=== PATIENT | male | born 1960 | race Caucasian/White ===

== ENCOUNTER → 2016-08-03 | Outpatient (CLI) | payer OTHER ==
[~2016-08-03] MED LIST: ACET-1256 PO; ASPEC81 PO; ASPI81TA28 PO; ATOR-24 PO; BRL90 PO; CALC1TAB9 PO; CALC625T PO; CHOL1TAB42; CHOL200010 PO; CLON0.5T3 PO; CZR25 PO; DTRSR/10 PO; DTRSR10 PO; HYDR2.5C60 RE; KRIL1CAP18 PO; LEVO88TA PO; LPR25 PO; LPT40 PO; LSN5 PO; MULT-506 PO; MULT-513 PO; NTRSLP4 SL; POTA540T PO; POTASSIUM CITRATE ER PO; SIME1CHW17 PO; TICA1TAB PO; TIZA4CAP PO; TPRSR25 PO; ZINC66TA PO; ZNF/4 PO
--- NOTE | 2016-08-03 12:16 | DIAGNOSTIC IMAGING REPORT ---
KUB CLINICAL HISTORY: NEPHROLITHIASIS COMPARISON STUDY: 10/16/2013 FINDINGS: The soft tissues, psoas shadows, renal outlines and intestinal gas pattern appear normal. There is no evidence for bowel obstruction. No abnormal abdominal calcifications are seen. IMPRESSION: Normal study. Electronically signed by: Anish Randolph M.D. 08/03/2016 12:14 PM Dictated Date/Time: 08/03/2016 12:14 PM
[2016-08-03 14:58] LABS: BLOOD UREA NITROGEN 16 mg/dl (7-18); BUN/CREATININE RATIO 21.5 (10-20); CREATININE 0.73 mg/dl (0.60-1.40)
[2016-08-03 15:02] LABS: PROSTATE SPECIFIC ANTIGEN 0.499 ng/ml (0.000-4.000)
--- NOTE | 2016-08-08 09:07 | CODING QUERY MEDICAL NECESSITY ---
SUPPORTING DIAGNOSIS NEEDED Dr. Starkey, A supporting diagnosis is required for the test/procedure performed on this patient in order for us to be reimbursed by the patient's insurance. Please provide a supporting diagnosis for the following test/procedure listed below next to the test name along with your signature. *If there is no additional diagnosis for this patient that would support the following test/procedure please document that below next to the test/procedure. Test(s)/Procedure(s) that require a supporting diagnosis: * [id number] PSA DIAGNOSIS: DATE OF SERVICE: 08/03/16 Provider Signature: Date: Thank you Dandy Kan [facility] Information Management Once completed, please kindly fax back to [phone] For questions please call [phone]
== END | disposition home or self-care (01) ==
LOC: C.LABBC 11:26
PROVIDERS: ATTEND Urology
DX: N20.0 Calculus of kidney (principal); N31.9 Neuromuscular dysfunction of bladder, unspecified; Z80.42 Family history of malignant neoplasm of prostate

== ENCOUNTER 2016-12-14 14:33 | Emergency (ER) | payer OTHER ==
[~2016-12-14] VITALS: Ht 167.6 cm; Wt 78.1 kg
[2016-12-14 14:33] VITALS: TEMP 36.4; Ht 167.6 cm; Wt 78.1 kg
[~2016-12-14 14:33] MED LIST changes: -ACET-1256 PO; -ASPI81TA28 PO; -ATOR-24 PO; -CALC1TAB9 PO; -CHOL1TAB42; -CZR25 PO; -DTRSR/10 PO; -HYDR2.5C60 RE; -LEVO88TA PO; -LPR25 PO; -MULT-513 PO; -POTASSIUM CITRATE ER PO; -TICA1TAB PO; -ZNF/4 PO
[2016-12-14 14:35] VITALS: O2SAT 99
[2016-12-14] MEDS ORDERED: SODIUM CHLORIDE 0.9% 500ML 500 ML IV STA ×2 (14:47→16:26)
--- NOTE | 2016-12-14 14:51 | EMERGENCY ROOM VISIT NOTE ---
History Report prepared by Day: Beckie Ellis Under the Supervision of: Dr. Marcus Ramsey M.D. First contact with patient: 14:35 Chief Complaint: CHEST PAIN Stated Complaint: CHEST PAIN History of Present Illness The patient is a 56 year old white male with a past medical history of PCO to LAD and MS Barbie who presents to the ED with a cc of a syncopal episode beginning prior to arrival. Positive LOC. Negative CP, SOB, cough, fevers, chills, pain or swelling in the legs, recent travel, infections, or antibiotic use. He was brought to the ED via EMS. EMS reports the patient was at [employer] eating lunch when he started to feel dizzy and experienced a syncopal episode. He was strapped in to his wheelchair and did not fall or hit his head. He did experience urinary incontinence after the episode. The patient was stented by Dr. Ahuja and his last EF was between 35% and 40% with mitral regurgitation. The patient denies any previous history of seizures. 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 A total of ten systems were reviewed and were otherwise negative. Past Medical & Surgical Medical Problems: (1) Calculus of kidney (2) Multiple sclerosis (3) Renal colic (4) STEMI (ST elevation myocardial infarction) Family History Heart disease Social History Smoking Status: Former Smoker Alcohol Use: occasionally Drug Use: none Marital Status: Housing Status: lives with significant other Occupation Status: disabled Current/Historical Medications Scheduled Aspirin (Aspirin Ec), 81 MG PO DAILY Atorvastatin (Lipitor), 40 MG PO DAILY Calcium Citrate-Vitamin D (Citracal + D3 Maximum), 1 TAB PO BID Calcium Polycarbophil (Fibercon), 2 CAP PO DAILY Cholecalciferol (Vitamin D), 5,000 UNITS DAILYBB Hydrocortisone (Rectal) (Procto-Med Hc), 1 APPLN RE UD Levothyroxine Sodium (Synthroid), 88 MCG PO DAILY Losartan Potassium (Losartan Potassium), 25 MG PO DAILY Metoprolol Tartrate (Lopressor), 37.5 MG PO BID Multivitamins/Minerals (Mvi With Minerals), 1 TAB PO DAILY Oxybutynin Chloride (Oxybutynin Chloride ER), 10 MG PO DAILY Ticagrelor (Brilinta), 90 MG PO BID Tizanidine (Tizanidine HCl), 2 MG PO UD Tizanidine (Zanaflex), 4 MG PO BID [Potassium Citrate Er], 300 MG PO BID Scheduled PRN Acetaminophen (Tylenol), 1,000 MG PO Q6 PRN for Pain Allergies Coded Allergies: Glatiramer (Verified Allergy, Severe, anaphylactic, 03/09/16) per patient Mannitol (Verified Allergy, Severe, anaphylactic, 03/09/16) per patient Physical Exam Vital Signs Date Time Temp Pulse Resp B/P (MAP) Pulse Ox O2 Delivery O2 Flow Rate FiO2 12/14/16 19:10 73 18 100/56 99 12/14/16 18:39 86 18 109/62 96 Room Air 12/14/16 17:33 75 18 91/53 96 Room Air 12/14/16 16:13 72 18 97/58 100 Room Air 12/14/16 15:30 65 18 99/55 100 Room Air 12/14/16 15:10 72 12/14/16 14:35 99 Room Air 12/14/16 14:33 36.4 64 18 129/63 99 Room Air Physical Exam GENERAL: Awake, alert, well-appearing, NAD HENT: Normocephalic, atraumatic. EYES: Normal conjunctiva. Sclera non-icteric. NECK: Supple. No nuchal rigidity. FROM. RESPIRATORY: CTAB, no rhonchi, wheezing, crackles CARDIAC: RRR, no MRG ABDOMEN: Soft, NTND, BS+ MSK: No chest wall TTP, no LE edema NEURO: AAO x 3, GCS 15, patient is verbal, appropriate responses, baseline paralysis of all 4 extremities, gross sensation intact. SKIN: No rash or jaundice noted. Medical Decision & Procedures ER Provider Diagnostic Interpretation: Radiology results as stated below per my review and radiologist interpretation: CHEST ONE VIEW PORTABLE CLINICAL HISTORY: Atypical chest pain COMPARISON STUDY: 03/09/2016 FINDINGS: The cardiac and mediastinal contours are normal. There is no evidence of focal pulmonary consolidation. There is no evidence of failure. No pleural effusions are visualized. IMPRESSION: No active disease in the chest. Electronically signed by: Moiz Serrato M.D. 12/14/2016 3:34 PM Laboratory Results 12/14/16 14:55 Red Blood Count 5.04, Mean Corpuscular Volume 85.7, Mean Corpuscular Hemoglobin 29.0, Mean Corpuscular Hemoglobin Concent 33.8, Mean Platelet Volume 9.8, Neutrophils (%) (Auto) 74.1, Lymphocytes (%) (Auto) 17.1, Monocytes (%) (Auto) 5.5, Eosinophils (%) (Auto) 2.2, Basophils (%) (Auto) 0.3, Neutrophils # (Auto) 9.89, Lymphocytes # (Auto) 2.29, Monocytes # (Auto) 0.73, Eosinophils # (Auto) 0.30, Basophils # (Auto) 0.04 12/14/16 14:55 Test 12/14/16 14:55 12/14/16 17:54 White Blood Count 13.36 K/uL (4.8-10.8) Red Blood Count 5.04 M/uL (4.7-6.1) Hemoglobin 14.6 g/dL (14.0-18.0) Hematocrit 43.2 % (42-52) Mean Corpuscular Volume 85.7 fL (80-100) Mean Corpuscular Hemoglobin 29.0 pg (25-34) Mean Corpuscular Hemoglobin Concent 33.8 g/dl (32-36) Platelet Count 319 K/uL (130-400) Mean Platelet Volume 9.8 fL (7.4-10.4) Neutrophils (%) (Auto) 74.1 % Lymphocytes (%) (Auto) 17.1 % Monocytes (%) (Auto) 5.5 % Eosinophils (%) (Auto) 2.2 % Basophils (%) (Auto) 0.3 % Neutrophils # (Auto) 9.89 K/uL (1.4-6.5) Lymphocytes # (Auto) 2.29 K/uL (1.2-3.4) Monocytes # (Auto) 0.73 K/uL (0.11-0.59) Eosinophils # (Auto) 0.30 K/uL (0-0.5) Basophils # (Auto) 0.04 K/uL (0-0.2) RDW Standard Deviation 42.1 fL (36.4-46.3) RDW Coefficient of Variation 13.5 % (11.5-14.5) Immature Granulocyte % (Auto) 0.8 % Immature Granulocyte # (Auto) 0.11 K/uL (0.00-0.02) Prothrombin Time 10.6 SECONDS (9.0-12.0) Prothromb Time International Ratio 1.0 (0.9-1.1) Activated Partial Thromboplast Time 24.7 SECONDS (21.0-31.0) Partial Thromboplastin Ratio 1.0 Anion Gap 11.0 mmol/L (3-11) Est Creatinine Clear Calc Drug Dose 73.7 ml/min Estimated GFR () 86.5 Estimated GFR (Non- 74.6 BUN/Creatinine Ratio 12.7 (10-20) Calcium Level 9.7 mg/dl (8.5-10.1) Phosphorus Level 4.1 mg/dl (2.5-4.9) Magnesium Level 2.1 mg/dl (1.8-2.4) Total Bilirubin 0.6 mg/dl (0.2-1) Direct Bilirubin 0.2 mg/dl (0-0.2) Aspartate Amino Transf (AST/SGOT) 27 U/L (15-37) Alanine Aminotransferase (ALT/SGPT) 56 U/L (12-78) Alkaline Phosphatase 113 U/L (45-117) Troponin I < 0.015 ng/ml (0-0.045) Total Protein 7.9 gm/dl (6.4-8.2) Albumin 3.9 gm/dl (3.4-5.0) Lipase 141 U/L (73-393) Bedside Troponin I < 0.030 ng/ml (0-0.045) Laboratory results reviewed by me Medications Administered Medications (Trade) Dose Ordered Sig/Benton Route Start Time Stop Time Status Last Admin Dose Admin Sodium Chloride 500 ml @ 500 mls/hr Q1H STAT IV 12/14/16 14:47 12/14/16 15:46 DC 12/14/16 15:10 500 MLS/HR Aspirin (Aspirin Chew) 162 mg ONE STAT PO 12/14/16 15:13 12/14/16 15:14 DC 12/14/16 15:24 162 MG Aspirin (Aspirin Chew) 81 mg ONE STAT PO 12/14/16 15:13 12/14/16 15:14 DC 12/14/16 15:24 81 MG Sodium Chloride 500 ml @ 500 mls/hr Q1H STAT IV 12/14/16 16:26 12/14/16 17:25 DC 12/14/16 16:49 500 MLS/HR ECG Indication: syncope Rate (beats per minute): 61 Rhythm: normal sinus (Likely Normal Sinus, but there is significant artifact) Findings: other (Normal intervals. Unable to visualize other findings due to significant artifact) Change: Repeat EKG on 12/14/16: NSR 62, normal intervals, no STS or TWI ED Course 1438: The patient was evaluated in room A2. A complete history and physical exam was performed. 1447: NSS 500 ml @ 500 mls/hr IV. 1451: The patient took a baby Aspirin prior to arrival, but not a full dose. We will administer the rest of the dose here in the ED. 1513: Aspirin 81 mg PO, Aspirin 162 mg PO. 1558: I reevaluated the patient. He is resting comfortably. 1626: NSS 500 ml @ 500 mls/hr IV. 1840: I reevaluated the patient. I discussed my recommendation he remain in the hospital for further evaluation and management and he declined and states he would like to go home. Medical Decision The patient is a 56 year old white male with a past medical history of PCO to LAD and MS Quad who presents to the ED with a cc of a syncopal episode beginning prior to arrival. Positive LOC. Negative CP, SOB, cough, fevers, chills, pain or swelling in the legs, recent travel, infections, or antibiotic use. Triage Nursing notes reviewed. The patient's presentation and history were concerning for Vasovagal event, infection, hypoglycemia, electrolyte abnormalities, cardiac sources, intracerebral event, toxicologic, neurologic, as well as others were entertained. Patient was seen and evaluated at the bedside. Patient states he is feeling well. Patient did have one episode of syncope with incontinence. No history of seizures. Sclerae any trauma as he was in his motorized chair. His total LOC was may be several seconds. Patient has control of his bowel in his bladder. Patient denies any sensory loss. Patient denies any chest pain or shortness of breath this does not feel similar to his prior [facility]. Patient does take an aspirin and polenta. Patient states he took a baby aspirin this morning. Patient did have a repeat EKG was completed which did show any acute changes. Patient had a negative troponin fairly benign labwork. Patient did have a with blood cell count 13 but no infectious symptoms. Patient had a second troponin was completed and was negative. Patient had no chest pain or shortness of breath. I made a recommendation of the patient's stay given his heart history and recent syncope. Patient did not want to do this. Patient is of sound mind and able to make a cognizant decision even though he was told that stay in the hospital may be better; however, the patient does not want to be admitted. Patient was given strict follow-up, discharge, return precautions and told to follow his manager laboratory. Patient agreed with plan of care patient was safely discharged home. Medication Reconcilliation Current Medication List: was personally reviewed by me Blood Pressure Screening Patient's blood pressure: Low blood pressure The patient has a history of MS with quad. Impression Primary Impression: Syncope Additional Impression: Multiple sclerosis Scribe Attestation The scribe's documentation has been prepared under my direction and personally reviewed by me in its entirety. I confirm that the note above accurately reflects all work, treatment, procedures, and medical decision making performed by me. Departure Information Dispostion Home / Self-Care Referrals Chantell Dunham M.D. (PCP) Patient Instructions My [facility], Syncope Additional Instructions Please return to the emergency department if you have worsening or recurrent symptoms not amenable to at-home treatment. Please call for a follow-up appointment with her primary care physician. Please take your medications as prescribed. If you have other concerns and/or complaints please feel free to also call your primary care physician's office or return the ED for further evaluation, management, and treatment. You have been examined and treated today on an emergency basis only. This is not a substitute for, or an effort to provide, complete comprehensive medical care. It is impossible to recognize and treat all injuries or illnesses in a single emergency department visit. It is therefore important that you follow up closely with [facility]. Call as soon as possible for an appointment. Thank you for your time and consideration. I look forward to speaking with you again soon. Please don't hesitate to call us if you have any questions. Problem Qualifiers Primary Impression: Syncope Syncope type: unspecified Qualified Codes: R55 - Syncope and collapse
[2016-12-14] MEDS ORDERED: ASPIRIN 81 MG CHEW PO STA ×2 (15:13)
[2016-12-14 15:16] LABS: BASO % 0.3 %; BASO ABS # 0.04 K/uL (0-0.2); COMPLETE YES; EOS % 2.2 %; HEMATOCRIT 43.2 % (42-52); IG% 0.8 %; LYMPH % 17.1 %; LYMPH ABS # 2.29 K/uL (1.2-3.4); MEAN CELL VOLUME 85.7 fL (80-100); MEAN CORPUSCULAR HGB CONC 33.8 g/dl (32-36); MEAN PLATELET VOLUME 9.8 fL (7.4-10.4); MONO % 5.5 %; NEUT % 74.1 %; PLATELET COUNT 319 K/uL (130-400); RED BLOOD COUNT 5.04 M/uL (4.7-6.1); WHITE BLOOD COUNT 13.36 K/uL (4.8-10.8)
[2016-12-14 15:23] LABS: PROTHROMBIN TIME (PATIENT) 10.6 SECONDS (9.0-12.0)
--- NOTE | 2016-12-14 15:36 | DIAGNOSTIC IMAGING REPORT ---
CHEST ONE VIEW PORTABLE CLINICAL HISTORY: Atypical chest pain COMPARISON STUDY: 03/09/2016 FINDINGS: The cardiac and mediastinal contours are normal. There is no evidence of focal pulmonary consolidation. There is no evidence of failure. No pleural effusions are visualized.[ IMPRESSION: No active disease in the chest. Electronically signed by: Moiz Serrato M.D. 12/14/2016 3:34 PM Dictated Date/Time: 12/14/2016 3:34 PM
[2016-12-14] MEDS ORDERED: DTRSR/10 PO (15:44)
[2016-12-14] MEDS ORDERED: MULT-513 PO (15:44)
[2016-12-14] MEDS ORDERED: CALC1TAB9 PO (15:44)
[2016-12-14] MEDS ORDERED: CALC625T PO (15:44)
[2016-12-14] MEDS ORDERED: TIZA4CAP PO (15:44)
[2016-12-14] MEDS ORDERED: TICA1TAB PO (15:44)
[2016-12-14] MEDS ORDERED: LEVO88TA PO (15:44)
[2016-12-14] MEDS ORDERED: ZNF/4 PO (15:44)
[2016-12-14] MEDS ORDERED: CZR25 PO (15:44)
[2016-12-14] MEDS ORDERED: ASPI81TA28 PO (15:44)
[2016-12-14] MEDS ORDERED: CHOL1TAB42 (15:44)
[2016-12-14] MEDS ORDERED: LPR25 PO (15:44)
[2016-12-14] MEDS ORDERED: POTASSIUM CITRATE ER PO (15:44)
[2016-12-14] MEDS ORDERED: ATOR-24 PO (15:44)
[2016-12-14] MEDS ORDERED: HYDR2.5C60 RE (15:46)
[2016-12-14 16:06] LABS: POTASSIUM 4.2 mmol/L (3.5-5.1); SODIUM 138 mmol/L (136-145)
[2016-12-14 16:11] LABS: AST/SGOT 27 U/L (15-37); MAGNESIUM 2.1 mg/dl (1.8-2.4)
[2016-12-14 16:13] LABS: ALKALINE PHOSPHATASE 113 U/L (45-117); ALT/SGPT 56 U/L (12-78); BLOOD UREA NITROGEN 14 mg/dl (7-18); BUN/CREATININE RATIO 12.7 (10-20); CALCIUM 9.7 mg/dl (8.5-10.1); CARBON DIOXIDE 25 mmol/L (21-32); CHLORIDE 102 mmol/L (98-107); GLUCOSE 146 mg/dl (70-99); PHOSPHORUS 4.1 mg/dl (2.5-4.9)
[2016-12-14 19:10] VITALS: BP 100/56; PULSE 73; O2SAT 99
[2016-12-14] MEDS ORDERED: ACET-1256 PO (19:43)
== END 2016-12-14 19:22 | disposition home or self-care (01) ==
LOC: EDBD 14:33 → C.EDA 14:34
DX: R55 Syncope and collapse (principal); G35 Multiple sclerosis; I25.2 Old myocardial infarction; Z87.442 Personal history of urinary calculi; Z87.891 Personal history of nicotine dependence; Z79.82 Long term (current) use of aspirin; Z79.899 Other long term (current) drug therapy; Z88.8 Allergy status to other drugs, medicaments and biological substances; Z82.49 Family history of ischemic heart disease and other diseases of the circulatory system

== ENCOUNTER → 2017-04-30 | Day surgery (SDC) | payer OTHER ==
[2017-04-23 09:45] VITALS: Ht 167.6 cm; Wt 72.7 kg
[~2017-04-30] VITALS: Ht 167.6 cm; Wt 72.7 kg
[~2017-04-30] MED LIST changes: +ACET-1256 PO; -ASPEC81 PO; +ASPI81TA28 PO; +ATOR-24 PO; -BRL90 PO; +CALC1TAB9 PO; +CHOL1TAB42; -CHOL200010 PO; -CLON0.5T3 PO; +CZR25 PO; +DTRSR/10 PO; -DTRSR10 PO; +HYDR2.5C60 RE; -KRIL1CAP18 PO; +LEVO88TA PO; +LPR25 PO; -LPT40 PO; -LSN5 PO; -MULT-506 PO; +MULT-513 PO; -NTRSLP4 SL; -POTA540T PO; +POTASSIUM CITRATE ER PO; -SIME1CHW17 PO; +SODIUM CHLORIDE 0.9% 500ML 500 ML IV ONE; +TICA1TAB PO; -TPRSR25 PO; -ZINC66TA PO; +ZNF/4 PO
--- NOTE | 2017-04-30 12:39 | Endo History and Physical ---
History & Physical Date of Service: Apr 30, 2017. Chief Complaint: screening,positive cologuard Referring Physician: Dr. 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) Hx Alcohol Use: No Allergies Coded Allergies: Glatiramer (Verified Allergy, Severe, anaphylactic, 04/23/17) Mannitol (Verified Allergy, Severe, anaphylactic, 04/23/17) Current Medications Reported Home Medications Medications Dose Route/Sig Max Daily Dose Days Date Category Dose Instructions Procto-Med Hc (Hydrocortisone (Rectal)) 2.5 % Cre 1 Appln RE UD PRN 12/14/16 Reported Vitamin D (Cholecalciferol) 5,000 Unit Tab 5,000 Units QAM 12/14/16 Reported Zanaflex (Tizanidine HCl) 4 Mg Cap 4 Mg PO BID 12/14/16 Reported GIVE 1 TAB AT HS & 1 TAB IN MIDDLE NIGHT Tizanidine HCl (Tizanidine) 4 Mg Tab 2 Mg PO Q4H 12/14/16 Reported [Potassium Citrate Er] 300 Mg PO BID 12/14/16 Reported Oxybutynin Chloride ER (Oxybutynin Chloride) 10 Mg Tabcr 10 Mg PO QPM 12/14/16 Reported Mvi With Minerals (Multivitamins/Minerals) Tab 1 Tab PO QAM 12/14/16 Reported Lopressor (Metoprolol Tartrate) 25 Mg Tab 37.5 Mg PO BID 12/14/16 Reported Losartan Potassium 25 Mg Tab 25 Mg PO QAM 12/14/16 Reported Synthroid (Levothyroxine Sodium) 88 Mcg Tab 88 Mcg PO QAM 12/14/16 Reported Fibercon (Calcium Polycarbophil) 625 Mg Tab 2 Cap PO DAILY 12/14/16 Reported Citracal + D3 Maximum (Calcium Citrate-Vitamin D) 1 Tab Tab 1 Tab PO BID 12/14/16 Reported Brilinta (Ticagrelor) 90 Mg Tab 90 Mg PO BID 12/14/16 Reported Lipitor (Atorvastatin Calcium) 40 Mg Tab 40 Mg PO QAM 12/14/16 Reported Aspirin Ec (Aspirin) 81 Mg Tab 81 Mg PO QAM 12/14/16 Reported Tylenol (Acetaminophen) 500 Mg Tab 1,000 Mg PO Q6 PRN 03/09/16 Reported Vital Signs Weight (Kilograms): 72.73 Height (Feet): 5 Height (Inches): 6 Date Time Temp Pulse Resp B/P (MAP) Pulse Ox O2 Delivery O2 Flow Rate FiO2 04/30/17 12:28 36.9 69 18 145/76 (99) 96 Room Air Physical Exam General Appearance: WD/WN, no apparent distress, + pertinent finding ( quadrapeligic) Respiratory/Chest: Respiratory effort: no dyspnea Auscultation: breath sounds normal Cardiovascular: Apical Impulse: not displaced Heart Auscultation: RRR, normal S1, normal S2 Abdomen: Bowel Sounds: normal Inspection & Palpation: soft, non-distended Assessment and Plan 56 yo presenting for colonoscopy for positive cologard
--- NOTE | 2017-04-30 13:28 | GI REPORT ---
Procedure Date: 04/30/2017 12:54 PM Procedure: Colonoscopy Indications: Screening for colorectal malignant neoplasm Medicines: Monitored Anesthesia Care Complications: No immediate complications. Estimated blood loss: None. Estimated Blood Loss: Estimated blood loss: none. Procedure: Pre-Anesthesia Assessment: - Pre-Anesthesia Assessment: - Prior to the procedure, a History and Physical was performed, and patient medications, allergies and sensitivities were reviewed. The patient's tolerance of previous anesthesia was reviewed. Please see [facility] for complete details. - The risks and benefits of the procedure and the sedation options and risks were discussed with the patient. All questions were answered and informed consent was obtained. - Patient identification and proposed procedure were verified prior to the procedure by the physician and the nurse. The procedure was verified in the pre-procedure area in the procedure room. After obtaining informed consent, the endoscope was passed carefully and meticuously under direct vision and only advanced when the lumen was clearly identified, C02 insuflation was utilized throughout the entirity of the procedure. Throughout the procedure, the patient's blood pressure, pulse, and oxygen saturations were monitored continuously. After I obtained informed consent, the scope was passed under direct vision. Throughout the procedure, the patient's blood pressure, pulse, and oxygen saturations were monitored continuously. The scope was introduced through the anus and advanced to the terminal ileum, with identification of the appendiceal orifice and IC valve. The colonoscopy was performed without difficulty. The patient tolerated the procedure well. The quality of the bowel preparation was good. Findings: A patchy area of mucosa in the terminal ileum was mildly eroded (linear-pattern). Biopsies were taken with a cold forceps for histology. Multiple small-mouthed diverticula were found in the sigmoid colon. Internal hemorrhoids were found during retroflexion. The exam was otherwise without abnormality on direct and retroflexion views. Impression: - Eroded (linear-pattern) mucosa in the terminal ileum. Biopsied. Possibly medication induced. - Diverticulosis in the sigmoid colon. - Internal hemorrhoids. - The examination was otherwise normal on direct and retroflexion views. Recommendation: - Discharge patient to home (with escort). - Await pathology results. - Repeat colonoscopy in 10 years for screening purposes. - Return to referring physician. - Ok to resume anticoagulation. Domingo Little MD 04/30/2017 1:27:52 PM This report has been signed electronically. Note Initiated On: 04/30/2017 12:54 PM I attest to the content of the Intraoperative Record and orders documented therein, exceptions below
--- NOTE | 2017-04-30 13:31 | Discharge Instructions ---
Endoscopy Patient Instructions Date / Procedure(s) Performed Apr 30, 2017. Colonoscopy Allergy Information Coded Allergies: Glatiramer (Verified Allergy, Severe, anaphylactic, 04/23/17) Mannitol (Verified Allergy, Severe, anaphylactic, 04/23/17) Discharge Date / Findings Apr 30, 2017. Findings: A patchy area of mucosa in the terminal ileum was mildly eroded (linear-pattern). Biopsies were taken with a cold forceps for histology. Multiple small-mouthed diverticula were found in the sigmoid colon. Internal hemorrhoids were found during retroflexion. The exam was otherwise without abnormality on direct and retroflexion views. Impression: - Eroded (linear-pattern) mucosa in the terminal ileum. Biopsied. Possibly medication induced. - Diverticulosis in the sigmoid colon. - Internal hemorrhoids. - The examination was otherwise normal on direct and retroflexion views. Recommendation: - Discharge patient to home (with escort). - Await pathology results. - Repeat colonoscopy in 10 years for screening purposes. - Return to referring physician. - Ok to resume anticoagulation. Medication Instructions Stopped Medication(s): took ASA yesterday Provider Instructions Activity Restrictions - No exercising or heavy lifting for 24 hours. - Do not drink alcohol the day of the procedure. - Do not drive a car or operate machinery until the day after the procedure. - Do not make any important decisions or sign important papers in 24 hours after the procedure. Following Day: - Return to full activity which may include returning to work/school. Diet Start your diet with liquids and light foods (jello, soup, juice, toast). Then eat your usual diet if not nauseated. Treatment For Common After Affects For mild abdominal pain, bloating, or excessive gas: - Rest - Eat lightly - Lie on right side Follow-Up Information Follow-up with Dr. Chantell Dunham as scheduled Anesthesia Information What You Should Know You have had a procedure that required some medicine to reduce anxiety and discomfort. This treatment is called moderate sedation. After receiving the treatment, you may be sleepy, but you will be able to breathe on your own. The effects of the treatment may last for several hours. Follow these instructions along with Activity/Diet recommendations noted above: * Do NOT do anything where dizziness or clumsiness would be dangerous. * Rest quietly at home today, then you can be up and about tomorrow. * Have a responsible person stay with you the rest of today. * You may have had an I.V. today. If so, you may take the dressing off later today. Recommendations Call your doctor if: * Trouble breathing * Continuous vomiting for more than 24 hours * Temperature above 101 degrees * Severe abdominal pain or bloating * Pain not relieved by pain medicine ordered * There is increased drainage or redness from any incision * A large amount of rectal bleeding greater than 2-3 tablespoons. (If you had a polyp/s removed or have hemorrhoids, a small amount of blood - from the rectum is to be expected.) * You have any unanswered questions or concerns. IN THE EVENT OF A SERIOUS EMERGENCY, GO TO THE NEAREST EMERGENCY ROOM Your discharge instructions were prepared by provider Domingo Little. Patient Instructions Signature Page Jose De Jesus Eastmaneder Patient (or Guardian) Signature/Date: I have read and understand the instructions given to me by my caregivers. Caregiver/RN/Doctor Signature/Date: The above-named patient and/or guardian has received patient instructions on this date. + Original Patient Signature Page (only) stays with chart. Please make copy for patient.
[2017-04-30 14:00] VITALS: BP 126/82; PULSE 72; O2SAT 99
--- NOTE | 2017-04-30 14:02 | Anesthesiology Progress Note ---
Anesthesia Post Op Note Date & Time Apr 30, 2017 at 14:02 Vital Signs Pain Intensity: 0 Vital Signs Past 12 Hours Date Time Temp Pulse Resp B/P (MAP) Pulse Ox O2 Delivery O2 Flow Rate FiO2 04/30/17 14:00 72 20 126/82 (97) 99 Room Air 04/30/17 13:42 76 20 107/71 (83) 99 Room Air 04/30/17 13:28 79 20 84/54 (64) 99 Room Air 04/30/17 12:28 36.9 69 18 145/76 (99) 96 Room Air Notes Mental Status: alert / awake / arousable, participated in evaluation Pt Amnestic to Procedure: Yes Nausea / Vomiting: adequately controlled Pain: adequately controlled Airway Patency, RR, SpO2: stable & adequate BP & HR: stable & adequate Hydration State: stable & adequate Anesthetic Complications: no major complications apparent
== END | disposition home or self-care (01) ==
LOC: C.GI 11:47
PROVIDERS: ATTEND Internal Medicine
DX: R19.5 Other fecal abnormalities (principal); K31.89 Other diseases of stomach and duodenum; K57.30 Diverticulosis of large intestine without perforation or abscess without bleeding; K64.8 Other hemorrhoids; G35 Multiple sclerosis; I25.10 Atherosclerotic heart disease of native coronary artery without angina pectoris; I10 Essential (primary) hypertension; I25.2 Old myocardial infarction; Z79.899 Other long term (current) drug therapy; Z79.82 Long term (current) use of aspirin; Z90.89 Acquired absence of other organs; Z98.890 Other specified postprocedural states; Z87.891 Personal history of nicotine dependence; Z88.8 Allergy status to other drugs, medicaments and biological substances; Z83.71 Family history of colonic polyps

== ENCOUNTER → 2017-08-02 | Outpatient (CLI) | payer OTHER ==
[~2017-08-02] MED LIST changes: -SODIUM CHLORIDE 0.9% 500ML 500 ML IV ONE
--- NOTE | 2017-08-02 12:29 | DIAGNOSTIC IMAGING REPORT ---
(RENAL)RETROPERITON COMP HISTORY: 57 years-old Male N31.9 Neurogenic [id number] COMPARISON: Renal ultrasound 07/29/2015 TECHNIQUE: Multiple real-time sonogram images of the kidneys and urinary bladder were obtained assessing grayscale appearance and color flow FINDINGS: Limited study secondary to patient condition. The right kidney measures 9.7 x 4.3 x 4.9 cm and is unremarkable without renal calculi, hydronephrosis or suspicious mass lesions. The left kidney measures 10.6 x 5.7 x 4.6 cm and is also within normal limits without renal calculi, hydronephrosis or suspicious mass lesions. Bilateral ureteral jets are noted. Suggestion of mild urinary bladder wall trabeculation. IMPRESSION: 1. Unremarkable sonographic appearance of the kidneys without renal calculi or hydronephrosis. 2. Mild urinary bladder wall trabeculation. The above report was generated using voice recognition software. It may contain grammatical, syntax or spelling errors. Electronically signed by: Montana Pizarro M.D. 08/02/2017 12:27 PM Dictated Date/Time: 08/02/2017 12:25 PM
== END | disposition home or self-care (01) ==
LOC: C.ULTR 11:40
PROVIDERS: ATTEND Urology
DX: N31.9 Neuromuscular dysfunction of bladder, unspecified (principal); N32.89 Other specified disorders of bladder

== ENCOUNTER 2021-06-07 18:44 | Inpatient (IN) ==
[2021-06-07 19:23] LABS: Appearance Urine Cloudy (Clear); Bacteria Urine Automated Negative (Negative); Bilirubin Urine Negative (Negative); Blood Urine Negative (Negative); Color Urine Yellow; Epithelial Cell Urine Auto >30 /lpf (0-5); Glucose Urine UA Negative (Negative); Ketones Urine Negative (Negative); Leukocyte Esterase Urine Negative (Negative); Nitrite Urine Negative (Negative); Protein Urine 1+ (Negative); RBC Urine Automated 0-4 /hpf (0-4); Specific Gravity Urine 1.013 (1.000-1.030); Urobilinogen Urine Negative (Negative); pH Urine 5.5 (4.5-7.5)
[2021-06-07 19:34] LABS: Basophils # (auto) 0.02 K/uL (0-0.2); Basophils % (auto) 0.2 %; Hematocrit (blood only) 29.8 % (42-52); Hemoglobin 9.5 g/dL (14.0-18.0); Immature Granulocytes # (auto) 0.31 K/uL (0.00-0.02); Immature Granulocytes % (auto) 2.5 %; Lymphocytes % (auto) 2.4 %; Mean Corpuscular Hemoglobin 23.6 pg (25-34); Mean Corpuscular Hgb Conc 31.9 g/dL (32-36); Mean Corpuscular Volume 74.1 fL (80-100); Mean Platelet Volume 9.2 fL (7.4-10.4); Monocytes # (auto) 1.35 K/uL (0.11-0.59); Monocytes % (auto) 10.8 %; Neutrophils # (auto) 10.47 K/uL (1.4-6.5); Neutrophils % (auto) 84.1 %; Platelet Count 417 K/uL (130-400); RDW Coefficient of Variation 18.2 % (11.5-14.5); RDW Standard Deviation 49.4 fL (36.4-46.3); Red Blood Count 4.02 M/uL (4.7-6.1); White Blood Count 12.45 K/uL (4.8-10.8)
--- NOTE | 2021-06-07 19:45 | Emergency Department Note ---
Impression & Plan Hypercalcemia, Multiple sclerosis, ALPA (acute kidney injury), Acute hyponatremia ED Provider Note Provider: Conrad Diaz MD DATE OF SERVICE: 06/07/2021 CHIEF COMPLAINT: Abnormal blood work, fatigue HISTORY OF PRESENT ILLNESS: Patient is a 61-year-old gentleman history of multiple sclerosis with resultant quadriplegia, CAD, and renal colic presenting here today stating that he has been weak and somewhat fatigued over the past month. Recently diagnosed with diabetes and follows with his outpatient doctor. Outpatient blood work is DrSteff Referred him here today as his calcium was high an d his blood work were abnormal. Patient states that he is not had significant fevers or chills. States has had over the past month episodes of nausea and stomach upset. Some improved after omeprazole. Evidently had scopes including colonoscopy last week without findings of bleeding although had some blood in his stool before that. Patient states he stopped several days ago calcium supplementation. States he has been urinating less amount but more frequently over the last several days. REVIEW OF SYSTEMS: A total of 10 review of systems was obtained and negative except as stated above in the HPI. PAST MEDICAL HISTORY: As noted above MEDICATIONS: Reviewed medication list SOCIAL HISTORY: Former smoker PHYSICAL EXAM: GENERAL: alert and oriented in no acute distress seated in power wheelchair Head: normocephalic and atraumatic EYES: No injection, discharge or icterus. NECK: Trachea midline. ENT: Mucous membranes pink and moist. LUNGS: Airway patent. No retractions. Breath sounds clear HEART: Regular tachycardic rate and rhythm. No chest wall tenderness ABDOMEN: Soft and non-tender, without guarding or rebound. SKIN: Acyanotic, warm, dry, without rashes EXTREMITIES: Without swelling, tenderness or deformity NEUROLOGICAL: Patient with fairly complete quadriplegia but intact gross sensation in all 4 extremities. No slurred speech. EK bpm sinus tachycardia with some artifact. No acute ST segment elevation or depressions noted with a right axis. QTC 455 CONTINUOUS CARDIAC MONITORING: was ordered and showed a heart rate of 90s-100s bpm in sinus tachycardia to NSR Patient's laboratory studies and imaging reviewed. Differential includes Infection, dehydration, metabolic abnormality, hypo/hyperglycemia, electrolyte disturbance, anemia, hypoxia, cardiac sources, intracerebral event, toxicologic, neurologic, as well as other pathologies. IMPRESSION/MEDICAL DECISION MAKING: Patient related generalized weakness and nausea over the past week. Outpatient blood work today showed evidence of elevated renal function as well as significant lipid calcium. Patient was recently on calcium supplementations to help from stools until several days ago be contributing. Repeat blood work was sent here. More urinary frequency but less volume. Urinalysis not impressive for infection. An anemia of 9.5 similar to outpatient labs from earlier this afternoon. White blood cell count elevated at 12.4 now. Mild hyponatremia noted. Acute kidney injury noted with creatinine 1.6. Calcium severely elevated at 13.4. IV fluid ordered 500 cc NS to start with some delusional effect for the hypercalcemia. Bladder and renal ultrasound was ordered to evaluate for any obstructive pathology. No significant abdominal tenderness on exam. Parathyroid testing was ordered. Given some symptomatic hypercalcemia discussed with the hospitalist for further care here at the hospital. DIAGNOSIS: Hypercalcemia, fatigue, ALPA DISPOSITION: Hospitalist will evaluate Patient was agreeable with this plan. Past Med/Surg History Medical History (Updated 06/07/21 @ 21:34 by Jackeline Tripathi PA-C) Anemia CAD (coronary artery disease) Diabetes mellitus, type II History of kidney stones Hypothyroidism Insomnia Multiple sclerosis wheelchair bound Muscle hypertonicity Neurogenic bladder On anticoagulant therapy on brilinta Quadriplegia states can move very little, also states he can control his bladder/bowel Squamous cell carcinoma of face STEMI (ST elevation myocardial infarction) (~02/2016) follows with Dr. 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 Electronics Required: No Beliefs That Will Affect Care: None marital status: Current Living Situation: Spouse and Family Current Living Situation Comment: Lives with and son current occupational status: retired Feels Safe at Home: Yes Assistive Devices: Mechanical Lift and Wheelchair Allergies Allergies Allergy/AdvReac Type Severity Reaction Status Date / Time glatiramer (copolymer 1) Allergy Severe Anaphylaxis Verified 05/31/21 08:38 [From Copaxone] Home Meds Home Medications Medication Instructions Recorded Confirmed acetaminophen 500 mg capsule 500 mg PO Q6H PRN 03/20/19 06/07/21 atorvastatin 40 mg tablet 40 mg PO HS 03/20/19 06/07/21 calcium citrate 250 mg 1 tab PO BID 03/20/19 06/07/21 calcium-vitamin D3 5 mcg (200 unit) tablet calcium polycarbophil 625 mg tablet 625 mg PO BID 03/20/19 06/07/21 levothyroxine 88 mcg tablet 88 mcg PO QAM tab 03/20/19 06/07/21 multivitamin 1 tab PO QAM 03/20/19 06/07/21 ticagrelor 60 mg tablet 60 mg PO BID tab 03/20/19 06/07/21 cholecalciferol (vitamin D3) 50 2,000 unit PO QAM 05/30/21 06/07/21 mcg (2,000 unit) tablet (Vitamin D3) oxybutynin chloride 10 mg 10 mg PO QPM 05/30/21 06/07/21 tablet,extended release 24 hr tizanidine 4 mg tablet 2 mg PO Q4 PRN 05/30/21 06/07/21 clonazepam 0.5 mg tablet 0.25 mg PO UD PRN 06/07/21 06/07/21 famotidine 20 mg tablet 20 mg PO BID PRN 06/07/21 06/07/21 metoprolol succinate 50 mg 75 mg PO HS 06/07/21 06/07/21 tablet,extended release 24 hr nitroglycerin 0.4 mg sublingual 0.4 mg SUBLINGUAL UD PRN 06/07/21 06/07/21 tablet omeprazole 40 mg capsule,delayed 40 mg PO DAILY 06/07/21 06/07/21 release Previous Rx's Medication Instructions Recorded Wheelchair (Powered) #2 ea 11/23/20 Results & Data (ED) Vital Signs Vital Signs - 24 hr 06/07/21 18:53 06/07/21 19:20 Temperature 36.3 C L Temperature Source Temporal Artery Scan Pulse Rate 115 H Pulse Rate [Apical] 110 H Pulse Rhythm [Apical] Regular Respiratory Rate 18 16 Respiratory Effort / Characteristics Non-Labored Spontaneous Respiratory Depth Normal Normal Blood Pressure 132/77 Blood Pressure [Left Arm] 134/84 Blood Pressure Mean 95 Blood Pressure Mean [Left Arm] 100 Pulse Oximetry 97 95 Oxygen Delivery Method Room Air Room Air Sepsis Recent Fever Within 48 Hours No Sepsis New/Unexplained Change in Mental Status No Sepsis Action Taken by Nursing No Action Required Laboratory Data Result diagrams: 06/07/21 19:07 06/07/21 19:07 Lab Results 06/07/21 06/07/21 06/07/21 Range/Units 19:07 19:07 19:07 WBC 12.45 H (4.8-10.8) K/uL RBC 4.02 L (4.7-6.1) M/uL Hgb 9.5 L (14.0-18.0) g/dL Hct 29.8 L (42-52) % MCV 74.1 L (80-100) fL MCH 23.6 L (25-34) pg MCHC 31.9 L (32-36) g/dL RDW Std Deviation 49.4 H (36.4-46.3) fL RDW Coeff of Travon 18.2 H (11.5-14.5) % Plt Count 417 H (130-400) K/uL MPV 9.2 (7.4-10.4) fL Immature Gran % (Auto) 2.5 % Neut % (Auto) 84.1 % Lymph % (Auto) 2.4 % [place] % (Auto) 10.8 % Eos % (Auto) 0.0 % Baso % (Auto) 0.2 % Neut # (Auto) 10.47 H (1.4-6.5) K/uL Lymph # (Auto) 0.30 L (1.2-3.4) K/uL [place] # (Auto) 1.35 H (0.11-0.59) K/uL Eos # (Auto) 0.00 (0-0.5) K/uL Baso # (Auto) 0.02 (0-0.2) K/uL Immature Gran # (Auto) 0.31 H (0.00-0.02) K/uL Sodium 132 L (136-145) mmol/L Potassium 4.1 (3.5-5.1) mmol/L Chloride 96 L (98-107) mmol/L Carbon Dioxide 28 (21-32) mmol/L Anion Gap 8 (3-11) BUN 24 H (6-23) mg/dl Creatinine 1.60 H (0.6-1.4) mg/dl Est Cr Clr Drug Dosing Not Reportable Est GFR ( Amer) 53.1 ml/min Est GFR (Non-Af Amer) 45.8 ml/min BUN/Creatinine Ratio 15.0 (10-20) Glucose 116 H (70-99(Fasting)) mg/dl Calcium 13.4 H* (8.5-10.1) mg/dl Phosphorus (2.5-4.9) mg/dl Magnesium 1.8 (1.7-2.4) mg/dl Total Bilirubin 0.5 (0.2-1.0) mg/dl AST 35 (13-39) U/L ALT 17 (7-52) U/L Alkaline Phosphatase 75 (34-104) U/L Troponin I < 0.03 (0-0.04) ng/ml Total Protein 7.4 (6.0-8.3) gm/dl Albumin 3.2 L (3.4-5.0) gm/dl Globulin 4.2 H (2.5-4.0) gm/dl Albumin/Globulin Ratio 0.8 L (0.9-2) Procalcitonin (0-0.5) ng/ml TSH 4.018 (0.300-4.500) uIu/ml PTH Intact (12.0-88.0) pg/ml Urine Color Urine Appearance (Clear) Urine pH (4.5-7.5) Ur Specific [place] (1.000-1.030) Urine Protein (Negative) Urine Glucose (UA) (Negative) Urine Ketones (Negative) Urine Blood (Negative) Urine Nitrite (Negative) Urine Bilirubin (Negative) Urine Urobilinogen (Negative) Ur Leukocyte Esterase (Negative) Urine WBC (Auto) (0-5) /hpf Urine RBC (Auto) (0-4) /hpf U Hyaline Cast (Auto) (0-5) /lpf U Epithel Cells (Auto) (0-5) /lpf Urine Bacteria (Auto) (Negative) Ur Renal Epithelial Cell SARS-CoV-2, RNA, NAAT (NEGATIVE) 06/07/21 06/07/21 06/07/21 Range/Units 19:07 19:07 19:07 WBC (4.8-10.8) K/uL RBC (4.7-6.1) M/uL Hgb (14.0-18.0) g/dL Hct (42-52) % MCV (80-100) fL MCH (25-34) pg MCHC (32-36) g/dL RDW Std Deviation (36.4-46.3) fL RDW Coeff of Travon (11.5-14.5) % Plt Count (130-400) K/uL MPV (7.4-10.4) fL Immature Gran % (Auto) % Neut % (Auto) % Lymph % (Auto) % [place] % (Auto) % Eos % (Auto) % Baso % (Auto) % Neut # (Auto) (1.4-6.5) K/uL Lymph # (Auto) (1.2-3.4) K/uL [place] # (Auto) (0.11-0.59) K/uL Eos # (Auto) (0-0.5) K/uL Baso # (Auto) (0-0.2) K/uL Immature Gran # (Auto) (0.00-0.02) K/uL Sodium (136-145) mmol/L Potassium (3.5-5.1) mmol/L Chloride (98-107) mmol/L Carbon Dioxide (21-32) mmol/L Anion Gap (3-11) BUN (6-23) mg/dl Creatinine (0.6-1.4) mg/dl Est Cr Clr Drug Dosing Est GFR ( Amer) ml/min Est GFR (Non-Af Amer) ml/min BUN/Creatinine Ratio (10-20) Glucose (70-99(Fasting)) mg/dl Calcium (8.5-10.1) mg/dl Phosphorus 3.3 (2.5-4.9) mg/dl Magnesium (1.7-2.4) mg/dl Total Bilirubin (0.2-1.0) mg/dl AST (13-39) U/L ALT (7-52) U/L Alkaline Phosphatase (34-104) U/L Troponin I (0-0.04) ng/ml Total Protein (6.0-8.3) gm/dl Albumin (3.4-5.0) gm/dl Globulin (2.5-4.0) gm/dl Albumin/Globulin Ratio (0.9-2) Procalcitonin 0.11 (0-0.5) ng/ml TSH (0.300-4.500) uIu/ml PTH Intact (12.0-88.0) pg/ml Urine Color Yellow Urine Appearance Cloudy A (Clear) Urine pH 5.5 (4.5-7.5) Ur Specific [place] 1.013 (1.000-1.030) Urine Protein 1+ H (Negative) Urine Glucose (UA) Negative (Negative) Urine Ketones Negative (Negative) Urine Blood Negative (Negative) Urine Nitrite Negative (Negative) Urine Bilirubin Negative (Negative) Urine Urobilinogen Negative (Negative) Ur Leukocyte Esterase Negative (Negative) Urine WBC (Auto) 5-10 H (0-5) /hpf Urine RBC (Auto) 0-4 (0-4) /hpf U Hyaline Cast (Auto) 1-5 (0-5) /lpf U Epithel Cells (Auto) >30 H (0-5) /lpf Urine Bacteria (Auto) Negative (Negative) Ur Renal Epithelial Cell Not Reportable SARS-CoV-2, RNA, NAAT (NEGATIVE) 06/07/21 06/07/21 Range/Units 20:51 Unknown WBC (4.8-10.8) K/uL RBC (4.7-6.1) M/uL Hgb (14.0-18.0) g/dL Hct (42-52) % MCV (80-100) fL MCH (25-34) pg MCHC (32-36) g/dL RDW Std Deviation (36.4-46.3) fL RDW Coeff of Travon (11.5-14.5) % Plt Count (130-400) K/uL MPV (7.4-10.4) fL Immature Gran % (Auto) % Neut % (Auto) % Lymph % (Auto) % [place] % (Auto) % Eos % (Auto) % Baso % (Auto) % Neut # (Auto) (1.4-6.5) K/uL Lymph # (Auto) (1.2-3.4) K/uL [place] # (Auto) (0.11-0.59) K/uL Eos # (Auto) (0-0.5) K/uL Baso # (Auto) (0-0.2) K/uL Immature Gran # (Auto) (0.00-0.02) K/uL Sodium (136-145) mmol/L Potassium (3.5-5.1) mmol/L Chloride (98-107) mmol/L Carbon Dioxide (21-32) mmol/L Anion Gap (3-11) BUN (6-23) mg/dl Creatinine (0.6-1.4) mg/dl Est Cr Clr Drug Dosing Est GFR ( Amer) ml/min Est GFR (Non-Af Amer) ml/min BUN/Creatinine Ratio (10-20) Glucose (70-99(Fasting)) mg/dl Calcium (8.5-10.1) mg/dl Phosphorus (2.5-4.9) mg/dl Magnesium (1.7-2.4) mg/dl Total Bilirubin (0.2-1.0) mg/dl AST (13-39) U/L ALT (7-52) U/L Alkaline Phosphatase (34-104) U/L Troponin I (0-0.04) ng/ml Total Protein (6.0-8.3) gm/dl Albumin (3.4-5.0) gm/dl Globulin (2.5-4.0) gm/dl Albumin/Globulin Ratio (0.9-2) Procalcitonin (0-0.5) ng/ml TSH (0.300-4.500) uIu/ml PTH Intact 7.9 L (12.0-88.0) pg/ml Urine Color Urine Appearance (Clear) Urine pH (4.5-7.5) Ur Specific [place] (1.000-1.030) Urine Protein (Negative) Urine Glucose (UA) (Negative) Urine Ketones (Negative) Urine Blood (Negative) Urine Nitrite (Negative) Urine Bilirubin (Negative) Urine Urobilinogen (Negative) Ur Leukocyte Esterase (Negative) Urine WBC (Auto) (0-5) /hpf Urine RBC (Auto) (0-4) /hpf U Hyaline Cast (Auto) (0-5) /lpf U Epithel Cells (Auto) (0-5) /lpf Urine Bacteria (Auto) (Negative) Ur Renal Epithelial Cell SARS-CoV-2, RNA, NAAT NEGATIVE (NEGATIVE) Administered Medications Sodium Chloride (Nss 1000ml) 1,000 mls @ 500 mls/hr IV .Q2H ONE Stop: 06/07/21 22:49 Last Admin: 06/07/21 20:54 Dose: 500 mls/hr Documented by: [id number] Magnesium Sulfate/Dextrose (Magnesium Sulfate / D5w) 1 gm in 100 mls @ 50 mls/hr IV ONE ONE Stop: 06/07/21 22:49 Last Admin: 06/07/21 22:16 Dose: 50 mls/hr Documented by: [id number] Discontinued Medications Sodium Chloride (Nss 1000ml) 500 mls @ 999 mls/hr IV .Q31M ONE Stop: 06/07/21 20:18 Last Infusion: 06/07/21 20:42 Dose: 0 mls/hr Documented by: [id number] Admin: 06/07/21 20:10 Dose: 999 mls/hr Documented by: [id number] Imaging Data Radiologist's Impression: Chest X-Ray 06/07/21 20:06 SINGLE VIEW CHEST CLINICAL HISTORY: Renal failure FINDINGS: An AP, portable, upright chest radiograph is compared to study dated 12/14/2016. The examination is degraded by portable technique and patient rotation. The cardiomediastinal silhouette is unremarkable. There is elevation of the right hemidiaphragm and bibasilar atelectasis. The lungs and pleural spaces are otherwise clear. No pneumothorax is seen. The skeletal structures are osteopenic. The bony thorax is grossly intact. IMPRESSION: No acute cardiopulmonary abnormality. ACT 112: Negative or not required by law. Electronically signed by: Cb Avila M.D. 06/07/2021 8:52 PM Discharge Plan Visit Data Chief Complaint: Abnormal Labs/Diagnostic Testing Stated Complaint: BLOOD WORK ABNORMAL, CONCERNED ABOUT KIDNEYS ED Provider: Conrad Diaz Discharge Problem: Hypercalcemia, Multiple sclerosis, ALPA (acute kidney injury), Acute hypon atremia Patient Disposition: Being Evaluated by Hospitalist Forms Stand Alone Forms: [facility] Prescriptions Prescriptions: No Action (DME) Wheelchair (Powered) Device See Rx Instructions .ROUTE .MEDSUPPLY Qty: 2 RF: 0 acetaminophen 500 mg capsule 500 mg PO Q6H PRN (Reason: Pain) RF: 0 atorvastatin 40 mg tablet 40 mg PO HS RF: 0 calcium citrate-vitamin D3 250 mg calcium- 200 unit tablet 1 tab PO BID RF: 0 multivitamin tablet 1 tab PO QAM RF: 0 levothyroxine 88 mcg tablet 88 mcg PO QAM RF: 0 calcium polycarbophil 625 mg tablet 625 mg PO BID RF: 0 ticagrelor 60 mg tablet 60 mg PO BID RF: 0 metoprolol succinate 50 mg tablet extended release 24 hr 75 mg PO HS RF: 0 omeprazole 40 mg capsule,delayed release(DR/EC) 40 mg PO DAILY RF: 0 famotidine 20 mg tablet 20 mg PO BID PRN (Reason: Heartburn) RF: 0 nitroglycerin 0.4 mg tablet, sublingual 0.4 mg sublingual UD PRN (Reason: Chest Pain) RF: 0 clonazepam 0.5 mg tablet 0.25 mg PO UD PRN (Reason: spasms) RF: 0 cholecalciferol (vitamin D3) [Vitamin D3] 50 mcg (2,000 unit) Tablet 2,000 unit PO QAM RF: 0 oxybutynin chloride 10 mg tablet extended release 24hr 10 mg PO QPM RF: 0 tizanidine 4 mg tablet 2 mg PO Q4 PRN (Reason: Muscle Spasm) RF: 0 Referrals Referrals: Shanthi Castano DO [Primary Care Provider] -
[2021-06-07 19:46] LABS: Alanine Aminotransferase 17 U/L (7-52); Albumin Globulin Ratio 0.8 (0.9-2); Albumin Level 3.2 gm/dl (3.4-5.0); Alkaline Phosphatase 75 U/L (34-104); Anion Gap 8 (3-11); Aspartate Aminotransferase 35 U/L (13-39); Bilirubin,Total 0.5 mg/dl (0.2-1.0); Blood Urea Nitrogen 24 mg/dl (6-23); Calcium 13.4 mg/dl (8.5-10.1); Carbon Dioxide 28 mmol/L (21-32); Chloride 96 mmol/L (98-107); Est GFR (African American) 53.1 ml/min; Est GFR (Non-African American) 45.8 ml/min; Globulin 4.2 gm/dl (2.5-4.0); Glucose 116 mg/dl (70-99(Fasting)); Magnesium 1.8 mg/dl (1.7-2.4); Potassium 4.1 mmol/L (3.5-5.1); Sodium 132 mmol/L (136-145); Total Protein 7.4 gm/dl (6.0-8.3); Troponin I < 0.03 ng/ml (0-0.04)
[2021-06-07] MEDS ORDERED: SODIUM CHLORIDE 0.9% 1000ML 500 ML IV ONE (19:48)
--- NOTE | 2021-06-07 20:47 | History & Physical Report ---
Date of Service June 07, 2021 Assessment & Plan (1) Hypercalcemia: (2) ALPA (acute kidney injury): (3) Multiple sclerosis: (4) Quadriplegia: (5) CAD (coronary artery disease): (6) Diabetes mellitus, type II: (7) Neurogenic bladder: (8) Anemia: Plan: Assessment and plan per Dr Soares. See addendum History of Present Illness Chief Complaint: Abnormal labs Primary Care Provider: Shanthi Castano DO Patient is 61 y/o M with PMH MS, quadriplegia, neurogenic bladder, CAD s/p stent, DM II, HLD presented to ER for abnormal labs. Patient had outpatient labs completed and had hypercalcemia and elevated creatine and was referred to ER. Patient reports past several weeks with increased fatigue, weakness, decreased appetite, nausea and "gnawing" sensation to stomach. He was prescribed Carafate which he hasn't started yet. Is using famotidine and omeprazole. States stopped taking aspirin secondary to nausea. Reports increased urinary frequency. He recently saw urology and was to increase oxybutynin from 10mg to 15mg daily, however has not started yet. Feels appetite is decreased and he has been trying to watch carb intake and hasn't been eating as much. He stopped calcium supplement a few days ago. Is still taking multivitamin. Outpatient records reviewed. Had Hgb of 10.7 on 05/02/21, Cr: 0.8. Ca: 9.5 on 04/26/21. A1c: 6.6 on 04/26/21. Had positive FOBT outpatient and subsequently had EGD and colonoscopy. 05/31/2021 EGD: Esophagus and stomach normal. 05/31/2021 colonoscopy: Multiple diverticula in sigmoid colon, otherwise normal. Reports BM today of formed brown stool. He reports past several days has been taking is Zanaflex HS and during the night instead of every 4 hours as he thought this medication may be causing some weakness. Has chronic intermittent GARCIA's and denies any increase GARCIA frequency or intensity. Denies current GARCIA. Denies fever/chills, diaphoresis, N/V/D, dizziness, syncope, vision changes, neck pain, CP, SOB, orthopnea, palpitations, cough, sore throat, choking, otalgia, rhinorrhea, abdominal pain, extremity edema, rashes, hematuria. Allergies Allergy/AdvReac Type Severity Reaction Status Date / Time glatiramer (copolymer 1) Allergy Severe Anaphylaxis Verified 05/31/21 08:38 [From [employer]] Home Medications Medication Instructions Recorded Confirmed Type acetaminophen 500 mg capsule 500 mg PO Q6H PRN 03/20/19 06/07/21 History atorvastatin 40 mg tablet 40 mg PO HS 03/20/19 06/07/21 History calcium citrate 250 mg 1 tab PO BID 03/20/19 06/07/21 History calcium-vitamin D3 5 mcg (200 unit) tablet calcium polycarbophil 625 mg tablet 625 mg PO BID 03/20/19 06/07/21 History levothyroxine 88 mcg tablet 88 mcg PO QAM tab 03/20/19 06/07/21 History multivitamin 1 tab PO QAM 03/20/19 06/07/21 History ticagrelor 60 mg tablet 60 mg PO BID tab 03/20/19 06/07/21 History Wheelchair (Powered) #2 ea 11/23/20 06/07/21 Rx cholecalciferol (vitamin D3) 50 2,000 unit PO QAM 05/30/21 06/07/21 History mcg (2,000 unit) tablet (Vitamin D3) oxybutynin chloride 10 mg 10 mg PO QPM 05/30/21 06/07/21 History tablet,extended release 24 hr tizanidine 4 mg tablet 2 mg PO Q4 PRN 05/30/21 06/07/21 History clonazepam 0.5 mg tablet 0.25 mg PO UD PRN 06/07/21 06/07/21 History famotidine 20 mg tablet 20 mg PO BID PRN 06/07/21 06/07/21 History metoprolol succinate 50 mg 75 mg PO HS 06/07/21 06/07/21 History tablet,extended release 24 hr nitroglycerin 0.4 mg sublingual 0.4 mg SUBLINGUAL UD PRN 06/07/21 06/07/21 History tablet omeprazole 40 mg capsule,delayed 40 mg PO DAILY 06/07/21 06/07/21 History release Past Med/Surg History Medical History (Updated 06/07/21 @ 21:34 by Jackeline Tripathi PA-C) Anemia CAD (coronary artery disease) Diabetes mellitus, type II History of kidney stones Hypothyroidism Insomnia Multiple sclerosis wheelchair bound Muscle hypertonicity Neurogenic bladder On anticoagulant therapy on brilinta Quadriplegia states can move very little, also states he can control his bladder/bowel Squamous cell carcinoma of face STEMI (ST elevation myocardial infarction) (~02/2016) follows with Dr. Ahuja Surgical History History of cardiac cath (~02/2016) with 1 stent placed History of carpal tunnel repair History of colonoscopy History of heart artery stent 1 stent History of Mohs surgery for squamous cell carcinoma of skin History of tonsillectomy History of wisdom tooth extraction S/P appendectomy S/P hernia repair as an Family History Father Prostate cancer Family/Other Cancer Heart disease Hypertension Nephrolithiasis Social History Smoking Status: Former smoker Second Hand Exposure: No; Hx Alcohol Use: No Hx Substance Use: No Preferred Language: Nigerien Communication Ability: Effective Manager Activities Required: No Beliefs That Will Affect Care: None marital status: Current Living Situation: Spouse and Family Current Living Situation Comment: Lives with and son current occupational status: retired Feels Safe at Home: Yes Safety Concerns: Feels Safe At This Time Assistive Devices: Mechanical Lift Assistive Devices Comment: electric chair Review of Systems Review of Systems: All systems reviewed & are unremarkable except as noted in HPI & below Physical Exam Physical Exam: General: Examined in wheelchair, no acute distress, chronic ill appearing Head: normocephalic, atraumatic Eyes: PERRL, EOM's intact, conjunctiva non-injected, anicteric ENT: normal inspection external ears, nose, mucous membranes moist Neck: supple, trachea midline Lungs: clear, no respiratory distress, no wheezing/rhonchi/rales CV: tachycardia, rate 104, regular rhythm, no murmur, no pretibial edema Abd: normal BS, soft, non-tender Ext: no cyanosis, no edema, no calf tenderness Neuro: A&O x 3, +quadriplegia, normal affect Skin: warm, dry Results & Data Results & Data ([facility]) Vital Signs (Past 12 Hours) Vital Signs Temp Pulse Pulse Resp BP BP Pulse Ox 06/07/21 19:20 110 H 16 134/84 95 06/07/21 18:53 36.3 C L 115 H 18 132/77 97 Laboratory Results Short CBC 06/07/21 Range/Units 19:07 WBC 12.45 H (4.8-10.8) K/uL Hgb 9.5 L (14.0-18.0) g/dL Hct 29.8 L (42-52) % Plt Count 417 H (130-400) K/uL BMP 06/07/21 19:07 Sodium 132 L Potassium 4.1 Chloride 96 L Carbon Dioxide 28 BUN 24 H Creatinine 1.60 H Glucose 116 H Calcium 13.4 H* Cardiac Enzymes 06/07/21 Range/Units 19:07 Troponin I < 0.03 (0-0.04) ng/ml Liver Function 06/07/21 Range/Units 19:07 Total Bilirubin 0.5 (0.2-1.0) mg/dl AST 35 (13-39) U/L ALT 17 (7-52) U/L Alkaline Phosphatase 75 (34-104) U/L Albumin 3.2 L (3.4-5.0) gm/dl Urine 06/07/21 Range/Units 19:07 Urine Color Yellow Urine Appearance Cloudy A (Clear) Urine pH 5.5 (4.5-7.5) Ur Specific [place] 1.013 (1.000-1.030) Urine Protein 1+ H (Negative) Urine Glucose (UA) Negative (Negative) Diagnostic Findings Chest X-Ray 06/07/21 20:06 SINGLE VIEW CHEST CLINICAL HISTORY: Renal failure FINDINGS: An AP, portable, upright chest radiograph is compared to study dated 12/14/2016. The examination is degraded by portable technique and patient rotation. The cardiomediastinal silhouette is unremarkable. There is elevation of the right hemidiaphragm and bibasilar atelectasis. The lungs and pleural spaces are otherwise clear. No pneumothorax is seen. The skeletal structures are osteopenic. The bony thorax is grossly intact. IMPRESSION: No acute cardiopulmonary abnormality. ACT 112: Negative or not required by law. Electronically signed by: Cb Avila M.D. 06/07/2021 8:52 PM Supervising Physician Co-Signing Physician Notes IM ATTENDING : Patient seen and examined. History obtained from patient and records. Preceding documentation by Ms. Jackeline Tripathi PA-C reviewed. FINAL ASSESSMENT AND PLAN as follows : Hypercalcemia ARF secondary to above Progressive anemia over the last few months Low iron, high ferritin, occult GI bleed on outpatient anemia work-up no overt bleed on recent outpatient EGD Hypertension, BP stable Chronic diastolic heart failure, EF 55% TTE 2016 patient euvolemic to dry History CAD status post stent (2015) DM2 on oral medications, well-controlled as of recent hemoglobin A1c of 6.23 April 2021 Multiple sclerosis, deficits at baseline as per patient Past tobacco abuse Medical telemetry Follow renal ultrasound results Hold home calcium supplements for now Monitor serum calcium, creatinine results to [facility] Nephrology consultation if without improvement Follow H&H, transfuse PRBC if hemoglobin less than 8 and or for symptomatic anemia Resume home Brilinta for secondary CAD prevention if hemoglobin stable Basal insulin, ISS BG goal 1 10-1 40, carb count coverage DVT prophylaxis with SCDs Re: Occult GI bleed Full code Text document was generated using untapt voice recognition software. It may contain grammatical or spelling errors. Kindly contact undersigned for clarification of any documentation item in question.
[2021-06-07] MEDS ORDERED: SODIUM CHLORIDE 0.9% 1000ML 1,000 ML IV ONE (20:50)
[2021-06-07] MEDS ORDERED: MAGNESIUM SULFATE / D5W 1 GM/100 ML BAG IV ONE (20:50)
--- NOTE | 2021-06-07 20:53 | XRay Report ---
SINGLE VIEW CHEST CLINICAL HISTORY: Renal failure FINDINGS: An AP, portable, upright chest radiograph is compared to study dated 12/14/2016. The examina tion is degraded by portable technique and patient rotation. The cardiomediastinal silhouette is un remarkable. There is elevation of the right hemidiaphragm and bibasilar atelectasis. The lungs and pl eural spaces are otherwise clear. No pneumothorax is seen. The skeletal structures are osteopenic. Th e bony thorax is grossly intact. IMPRESSION: No acute cardiopulmonary abnormality. ACT 112: Negative or not required by law. Electronically signed by: Cb Avila M.D. 06/07/2021 8:52 PM
[2021-06-07] MEDS ORDERED: traMADol HCL 50 MG TABLET PO PRN (22:17)
[2021-06-07] MEDS ORDERED: METOPROLOL SUCC 25MG EXT REL TAB PO STA (22:34)
[2021-06-07] MEDS ORDERED: GLUCOSE 40% GEL 15 GM TUBE PO PRN (23:04)
[2021-06-07] MEDS ORDERED: DEXTROSE 50% 50 ML SYRINGE IV PRN (23:04)
[2021-06-07] MEDS ORDERED: GLUCOSE 10 TABS/TUBE PO PRN (23:04)
[2021-06-07] MEDS ORDERED: ACETAMINOPHEN 325 MG TAB PO PRN (23:04)
[2021-06-07] MEDS ORDERED: CARBOHYDRATES FOR HYPOGLYCEMIA PO PRN (23:04)
[2021-06-07] MEDS ORDERED: GLUCAGON FOR INJ 1 MG VIAL SQ PRN (23:04)
[2021-06-07] MEDS ORDERED: PROMETHAZINE HCL 12.5 MG in SODIUM CHLORIDE 0.9% 50 ML IV PRN (23:04)
[2021-06-07] MEDS: SODIUM CHLORIDE 0.9% 1000ML 1,000 ML IV SCH (23:09)
[2021-06-07] MEDS: INSULIN ASPART PER UNIT SC SCH (23:59)
[2021-06-08 01:37] LABS: BUN Creatinine Ratio 15.9 (10-20); Calcium 12.5 mg/dl (8.5-10.1); Creatinine Clr Calc Pharmacy 48.1 ml/min; Est GFR (African American) 59.8 ml/min; Est GFR (Non-African American) 51.6 ml/min; Potassium 3.6 mmol/L (3.5-5.1)
[2021-06-08] MEDS: tiZANidine HCL 4 MG TABLET PO PRN ×3 (03:05→21:19)
[2021-06-08] MEDS: FAMOTIDINE 20 MG TAB PO PRN (05:33)
[2021-06-08] MEDS: PANTOprazole 40 MG TAB PO SCH (05:33)
[2021-06-08] MEDS: LEVOTHYROXINE SODIUM 88 MCG TABLET PO SCH (08:05)
--- NOTE | 2021-06-08 08:07 | Ultrasound Report ---
RENAL ULTRASOUND CLINICAL HISTORY: Elevated creatinine. COMPARISON STUDY: CT of the abdomen February 16, 2010. Renal ultrasound August 12, 2018. TECHNIQUE: Sonography of the kidneys and the urinary bladder was performed. FINDINGS: Right kidney measures 11.1 cm in maximal dimension and the left measures 10.6 cm. There is no hydronephrosis. There is a possible 5 mm nonobstructing left renal calculus. No renal masses are i dentified by sonography. Both ureteral jets were identified. IMPRESSION: 1. No hydronephrosis. 2. Possible nonobstructing 5 mm left renal calculus. ACT 112: Negative or not required by law. Electronically signed by: Dionte Fam M.D. 06/08/2021 8:05 AM
[2021-06-08 08:29] LABS: Basophils # (auto) 0.02 K/uL (0-0.2); Basophils % (auto) 0.2 %; Eosinophils # (auto) 0.04 K/uL (0-0.5); Eosinophils % (auto) 0.4 %; Hematocrit (blood only) 27.7 % (42-52); Hemoglobin 8.7 g/dL (14.0-18.0); Immature Granulocytes # (auto) 0.28 K/uL (0.00-0.02); Lymphocytes # (auto) 0.57 K/uL (1.2-3.4); Mean Corpuscular Hemoglobin 23.5 pg (25-34); Mean Corpuscular Hgb Conc 31.4 g/dL (32-36); Mean Corpuscular Volume 74.9 fL (80-100); Mean Platelet Volume 9.2 fL (7.4-10.4); Monocytes # (auto) 0.84 K/uL (0.11-0.59); Monocytes % (auto) 8.9 %; Neutrophils # (auto) 7.73 K/uL (1.4-6.5); Neutrophils % (auto) 81.5 %; Platelet Count 277 K/uL (130-400); RDW Standard Deviation 49.4 fL (36.4-46.3); White Blood Count 9.48 K/uL (4.8-10.8)
[2021-06-08] MEDS: INSULIN ASPART PER UNIT SC SCH ×4 (08:30→20:08)
[2021-06-08 09:02] LABS: BUN Creatinine Ratio 14.3 (10-20); Calcium 11.8 mg/dl (8.5-10.1); Creatinine Clr Calc Pharmacy 43.2 ml/min; Est GFR (African American) 52.7 ml/min; Est GFR (Non-African American) 45.5 ml/min; Potassium 3.9 mmol/L (3.5-5.1)
[2021-06-08] MEDS: MULTIVITAMIN TAB PO SCH (09:16)
[2021-06-08] MEDS: SODIUM CHLORIDE 0.9% 1000ML 1,000 ML IV SCH ×2 (09:51→20:04)
--- NOTE | 2021-06-08 16:53 | Electrocardiogram Report ---
Test Reason : Blood Pressure : / mmHG Vent. Rate : 109 BPM Atrial Rate : 109 BPM P-R Int : 174 ms QRS Dur : 096 ms QT Int : 338 ms P-R-T Axes : 028 113 035 degrees QTc Int : 455 ms Poor data quality, interpretation may be adversely affected Right axis deviation Possible Right ventricular hypertrophy Abnormal ECG When compared with ECG of 14-DEC-2016 15:31, Fusion complexes are now Present Vent. rate has increased BY 47 BPM Confirmed by Gage Higgins ([id number]) on 06/08/2021 4:53:00 PM Referred By: Shanthi Castano Confirmed By:Jerome Higgins
[2021-06-08] MEDS: METOPROLOL SUCC 25MG EXT REL TAB PO SCH (20:06)
[2021-06-08] MEDS: OXYBUTYNIN CHLORIDE XL 5 MG TABCR PO SCH (20:07)
[2021-06-08] MEDS: ATORVASTATIN 40 MG TAB PO SCH (20:08)
[2021-06-08] MEDS ORDERED: TICAGRELOR PO SCH (21:00)
[2021-06-08] MEDS: VITRON C PO SCH (21:22)
--- NOTE | 2021-06-08 23:46 | Hospitalist Progress Note ---
Date of Service June 08, 2021 Assessment & Plan (1) Hypercalcemia: (2) ALPA (acute kidney injury): (3) Multiple sclerosis: (4) Quadriplegia: (5) CAD (coronary artery disease): (6) Diabetes mellitus, type II: (7) Neurogenic bladder: (8) Anemia: Plan: Pt was sent to the ER for abnormal lab with Calcium 13.4 received IV, repeat calcium 11.8 Will hold calcium supplement and multivitamin Continue monitor BMP Anemia Hgb dropped to 8.7 Had positive FOBT outpatient Recent EGD on 05/31/2021 showed Esophagus and stomach normal. Recent colonoscopy on 05/31/21 showed Multiple diverticula in sigmoid colon, otherwise normal. Reports BM today of formed brown stool. Ticagrelor on hold due to low hemoglobin Continue monitor H/H Diabetes Most recent Hba1c 6.6 on 04/2021 Not on any diabetic med Will discontinue insulin coveragy since pt has been refused it ALPA Creatinine on admission 1.6, baseline creatinine 0.8 Continue IVF Avoid nephrotoxic agents Continue monitor BMP CAD Continue statin and metoprolol Will resume Brillinta once hgb stable Quadriplegia from his advanced multiple sclerosis. Neurogenic bowel and bladder He has been stable off disease modifying therapy for several years. Stable DVT px on SCD due to low hemoglobin Code status Full code Admission and Anticipated Discharge Date Admission Date: June 07, 2021 Subjective Pt was seen and examined for follow up of hypercalcemia and anemia Lying in bed with no acute distress Pt said that he feels fine today Denies any chest pain, palpitation, dizziness and fever Review of Systems Review of Systems: All systems reviewed & are unremarkable except as noted in Subjective Physical Exam Physical Exam: General: Examined in wheelchair, no acute distress, chronic ill appearing Head: normocephalic, atraumatic Eyes: PERRL, EOM's intact, conjunctiva non-injected, anicteric ENT: normal inspection external ears, nose, mucous membranes moist Neck: supple, trachea midline Lungs: clear, no respiratory distress, no wheezing/rhonchi/rales CV: tachycardia, no murmur, no pretibial edema Abd: normal BS, soft, non-tender Ext: no cyanosis, no edema, no calf tenderness Neuro: A&O x 3, +quadriplegia, normal affect Skin: warm, dry Results & Data Results & Data ([facility]) Vital Signs (Past 12 Hours) Vital Signs Temp Pulse Resp BP Pulse Ox 06/08/21 23:02 36.6 C 110 H 20 144/87 H 93 06/08/21 18:38 36.7 C 99 H 20 138/79 91 06/08/21 14:00 36.7 C 94 H 20 131/81 95
[2021-06-09] MEDS: LEVOTHYROXINE SODIUM 88 MCG TABLET PO SCH (06:05)
[2021-06-09] MEDS: SODIUM CHLORIDE 0.9% 1000ML 1,000 ML IV SCH ×2 (06:05→13:46)
[2021-06-09 08:38] LABS: Hematocrit (blood only) 25.3 % (42-52); Hemoglobin 7.7 g/dL (14.0-18.0); Mean Corpuscular Hemoglobin 22.9 pg (25-34); Mean Corpuscular Hgb Conc 30.4 g/dL (32-36); Mean Corpuscular Volume 75.3 fL (80-100); Mean Platelet Volume 8.9 fL (7.4-10.4); Platelet Count 292 K/uL (130-400); RDW Coefficient of Variation 18.4 % (11.5-14.5); RDW Standard Deviation 50.7 fL (36.4-46.3); Red Blood Count 3.36 M/uL (4.7-6.1); White Blood Count 9.57 K/uL (4.8-10.8)
[2021-06-09] MEDS ORDERED: ASCORBIC ACID 500 MG TAB PO SCH (09:00)
[2021-06-09] MEDS ORDERED: FERROUS SULFATE 325 MG TAB PO SCH (09:00)
[2021-06-09 09:11] LABS: BUN Creatinine Ratio 14.2 (10-20); Calcium 11.1 mg/dl (8.5-10.1); Creatinine Clr Calc Pharmacy 43.2 ml/min; Est GFR (African American) 52.3 ml/min; Est GFR (Non-African American) 45.1 ml/min; Potassium 3.7 mmol/L (3.5-5.1)
[2021-06-09 09:16] LABS: Albumin Globulin Ratio 0.8 (0.9-2); Albumin Level 2.7 gm/dl (3.4-5.0); Globulin 3.5 gm/dl (2.5-4.0); Total Protein 6.2 gm/dl (6.0-8.3)
[2021-06-09] MEDS: MULTIVITAMIN TAB PO SCH (09:20)
[2021-06-09] MEDS: FAMOTIDINE 20 MG TAB PO PRN (09:20)
[2021-06-09] MEDS: PANTOprazole 40 MG TAB PO SCH (09:20)
[2021-06-09] MEDS: tiZANidine HCL 4 MG TABLET PO PRN ×2 (09:20→20:37)
[2021-06-09] MEDS: VITRON C PO SCH ×2 (09:20→18:32)
[2021-06-09 09:27] LABS: Bilirubin,Total 0.6 mg/dl (0.2-1.0)
--- NOTE | 2021-06-09 12:54 | Consultation Report ---
NEPHROLOGY CONSULTATION NOTE DATE OF SERVICE: 06/09/2021 REASON FOR CONSULTATION: Acute kidney injury with hypercalcemia. HISTORY OF PRESENT ILLNESS: The patient is a 61-year-old male with severe MS with quadriplegia, neurogenic bladder, coronary artery disease, status post stent, diabetes, hyperlipidemia, who presented to the Emergency Department 2 days ago for abnormal labs. He had outpatient labs done at his PCP's office, which was noted to have hypercalcemia and elevated creatinine. The patient was taking Tums as well as his other calcium pills as well as vitamin D. Calcium at the time of admission was 13.4, but since then it has gotten steadily down and it is down to 11.1. Magnesium was normal. Creatinine was 1.6 and has not changed much for the last 2 days. He is getting normal saline. He is not getting vitamin D or the calcium supplement at this time. He has not received calcitonin or any other medication for hypercalcemia. The patient urinates on his own and does not report having any problem at this time. His vital signs appear to be stable and normal. ALLERGIES: Reviewed. MEDICATIONS: Home medication list was reviewed in detail and is as per the reconciliation list. The patient was taking Tums as well as calcium tablet as well as vitamin D. PAST MEDICAL AND SURGICAL HISTORY: Includes type 2 diabetes, history of kidney stones, hypothyroidism, insomnia, severe multiple sclerosis with quadriplegia and wheelchair bound, muscle hypertonicity, neurogenic bladder, but still able to void on his own, chronic anticoagulation, history of ST elevation [place], status post stent, carpal tunnel repair, colonoscopy, status post appendicectomy, hernia repair, tonsillectomy. FAMILY HISTORY: Negative for renal disease or dialysis. SOCIAL HISTORY: Former smoker. He is and lives with his spouse and family. He is retired. He needs full assistance with ambulation as well as feeding. REVIEW OF SYSTEMS: Twelve systems reviewed and are otherwise negative. Positive review of systems included weakness, decreased appetite, nausea prior to hospitalization, but now feels back to baseline and wants to go home. PHYSICAL EXAMINATION: GENERAL: A middle-aged white male who is quadriplegic. He is awake, alert, oriented and was able to give a very detailed account of his medical problem including exact laboratory test results. VITAL SIGNS: Blood pressure is 120/70, pulse rate 86, respiratory rate 18, temperature 36.6, and 95% on room air. HEENT: Mucous membrane is moist. NECK: Supple. No jugular venous distention. CHEST: Bilaterally clear to auscultation. CARDIOVASCULAR: S1 and S2 regular. ABDOMEN: Soft, nontender. EXTREMITIES: Cachectic, but no edema. LABORATORY TEST: At the time of admission, calcium was 13.4, but is now down to 11.1. Most recent creatinine is 1.62, sodium 136, potassium 3.7, chloride 104, bicarbonate 23. Albumin is 2.7. PTH was suppressed at 7.9. IMAGING: Renal ultrasound did not show any hydronephrosis. There was a possible nonobstructive left renal calculus. Chest x-ray was unremarkable. ASSESSMENT AND PLAN: A 61-year-old male admitted because of abnormal laboratories, namely hypercalcemia and acute renal failure, for which I have been consulted. The patient has severe multiple sclerosis and is quadriplegic and is 100% dependent for ambulation as well as feeding. Hypercalcemia: Most likely this is related with calcium and vitamin D supplementation, worsened by volume depletion and some calcium resorption because of bedbound status. In any case, it is getting better and by tomorrow, it looks like it will be near normal with the use of IV fluid. Since the calcium is improving pretty well on its own, I do not think we need to use any calcitonin or other drugs to bring it down. To give the benefit of doubt, I would still check for PTH-related peptide, urine for Bence-Gaviria, immunofixation, vitamin D level and also 1,25-dihydroxyvitamin D level. However, we do not need to wait for these tests to come back before we send him home. By tomorrow, hopefully, his calcium will be close to 10.5 and at that point, he can be discharged. ARF-baseline is 0.7. Was as high as 1.7 outpt. Although creatinine is higher than baseline, it is not really changing much and it is quite possible he may have a somewhat higher baseline going forward or it may come down slowly overtime. . No further workup is needed for the acute renal failure. A lot of patients do have slight renal insufficiency in the setting of hypercalcemia. At the time of discharge, I would stop all calcium as well as vitamin D supplementation. Decision about restarting will depend on the blood work, namely the vitamin D level and the other tests done for the hypercalcemia. Thank you very much for the consult. Job ID: [id number] LENCHO
--- NOTE | 2021-06-09 18:52 | Hospitalist Progress Note ---
Date of Service June 09, 2021 Assessment & Plan (1) Hypercalcemia: (2) ALPA (acute kidney injury): (3) Multiple sclerosis: (4) Quadriplegia: (5) CAD (coronary artery disease): (6) Diabetes mellitus, type II: (7) Neurogenic bladder: (8) Anemia: Plan: Pt was sent to the ER for abnormal lab with Calcium 13.4 received IV, repeat calcium 10.6 today Nephrology on board Continue to hold calcium supplement and multivitamin and vit D PTH-related peptide, urine for Bence-Gaviria, immunofixation, vitamin D level and also 1,25-dihydroxyvitamin D level and BMP in AM Continue IVF Continue monitor BMP weekly outpatient Anemia Hgb dropped to 7.5 today Had positive FOBT outpatient Recent EGD on 05/31/2021 showed Esophagus and stomach normal. Recent colonoscopy on 05/31/21 showed Multiple diverticula in sigmoid colon, otherwise normal. Reports BM today of formed brown stool. Ticagrelor on hold due to low hemoglobin IV Iron (Venofer ) 300mg given today, will give another 300mg in am Continue monitor CBC Diabetes Most recent Hba1c 6.6 on 04/2021 Not on any diabetic med Discontinued insulin coverage since pt has been refused it ALPA Creatinine on admission 1.6, baseline creatinine 0.8 Continue IVF Creatinine 1.4 today Avoid nephrotoxic agents Continue monitor BMP CAD Continue statin and metoprolol Will resume Brillinta once hgb stable Quadriplegia from his advanced multiple sclerosis. Neurogenic bowel and bladder He has been stable off disease modifying therapy for several years. Stable DVT px on SCD due to low hemoglobin Code status Full code Admission and Anticipated Discharge Date Admission Date: June 07, 2021 Subjective Pt was seen and examined for follow up of hypercalcemia and anemia Lying in bed with no acute distress with at bedside Pt is very anxious to go home today. He said that he feels better today After much discussion, he agreed to stay for another night Denies any chest pain, palpitation, dizziness and fever Review of Systems Review of Systems: All systems reviewed & are unremarkable except as noted in Subjective Physical Exam Physical Exam: General: Examined in wheelchair, no acute distress, chronic ill appearing Head: normocephalic, atraumatic Eyes: PERRL, EOM's intact, conjunctiva non-injected, anicteric ENT: normal inspection external ears, nose, mucous membranes moist Neck: supple, trachea midline Lungs: clear, no respiratory distress, no wheezing/rhonchi/rales CV: tachycardia, no murmur, no pretibial edema Abd: normal BS, soft, non-tender Ext: no cyanosis, no edema, no calf tenderness Neuro: A&O x 3, +quadriplegia, normal affect Skin: warm, dry Results & Data Results & Data ([facility]) Vital Signs (Past 12 Hours) Vital Signs Temp Pulse Pulse Pulse Resp BP Pulse Ox 06/09/21 16:59 86 06/09/21 16:05 90 18 111/69 92 06/09/21 10:46 36.6 C 86 18 120/70 95 06/09/21 10:07 96 H 06/09/21 08:04 36.4 C L 81 16 128/78 97
[2021-06-09] MEDS: ATORVASTATIN 40 MG TAB PO SCH (20:36)
[2021-06-09] MEDS: OXYBUTYNIN CHLORIDE XL 5 MG TABCR PO SCH (20:36)
[2021-06-09] MEDS: METOPROLOL SUCC 25MG EXT REL TAB PO SCH (20:38)
[2021-06-10] MEDS: clonazePAM 0.25 MG TAB PO PRN (00:26)
[2021-06-10] MEDS: SODIUM CHLORIDE 0.9% 1000ML 1,000 ML IV SCH ×2 (01:40→17:54)
[2021-06-10] MEDS: LEVOTHYROXINE SODIUM 88 MCG TABLET PO SCH (05:40)
[2021-06-10 06:57] LABS: Hematocrit (blood only) 24.3 % (42-52); Hemoglobin 7.5 g/dL (14.0-18.0); Mean Corpuscular Hemoglobin 23.1 pg (25-34); Mean Corpuscular Hgb Conc 30.9 g/dL (32-36); Mean Platelet Volume 8.8 fL (7.4-10.4); Platelet Count 297 K/uL (130-400); RDW Coefficient of Variation 18.3 % (11.5-14.5); RDW Standard Deviation 50.6 fL (36.4-46.3); Red Blood Count 3.24 M/uL (4.7-6.1); White Blood Count 8.68 K/uL (4.8-10.8)
[2021-06-10 07:16] LABS: BUN Creatinine Ratio 13.5 (10-20); Calcium 10.6 mg/dl (8.5-10.1); Creatinine Clr Calc Pharmacy 47.3 ml/min; Est GFR (African American) 58.4 ml/min; Est GFR (Non-African American) 50.3 ml/min; Potassium 3.4 mmol/L (3.5-5.1)
[2021-06-10] MEDS: PANTOprazole 40 MG TAB PO SCH (07:52)
[2021-06-10] MEDS: FAMOTIDINE 20 MG TAB PO PRN (07:52)
[2021-06-10] MEDS ORDERED: POTASSIUM CHLORIDE CRTAB 20 MEQ TABCR PO STA (09:10)
[2021-06-10] MEDS ORDERED: IRON SUCROSE 300 MG in SODIUM CHLORIDE 0.9% 250 ML IV ONE (10:15)
[2021-06-10] MEDS: VITRON C PO SCH ×2 (12:32→17:55)
[2021-06-10] MEDS: tiZANidine HCL 4 MG TABLET PO PRN ×2 (12:33→20:01)
--- NOTE | 2021-06-10 17:48 | Nephrology Progress Note ---
Date of Service June 10, 2021 Assessment & Plan (1) Hypercalcemia: Plan: presenting Ca 13.4, downtrending to 10.6 today which is still elevated (ionized calcium today 1.45). Vitamin D on presentation was in the low 70s. May also have hypercalcemia of immobility. Biggest concern is for multiple myeloma given his presentation; initial work-up for this is pending. He has responded to fluid alone at least so far. -Continue normal saline at 80 milliliters hourly overnight Follow-up on multiple pending studies after discharge We will need close in nephro follow-up after discharge Do not discharge on any calcium or vitamin D supplementation (2) ALPA (acute kidney injury): Plan: Presenting creatinine 1.6 on June 07 and essentially unchanged today despite significant fluid resuscitation. No obstruction on ultrasound which does also show incidentally 1 possible left stone. Baseline creatinine is 0.7. Creatinine in the mid ones for this quadriplegic patient is significant renal detriment. Suspect at least part of this relates to dehydration regressed to ATN with hypercalcemia. UA on presentation w/ 1+ protein, 5-10 WBC; else bland Daily basic metabolic panel while in-house -he did have 20 mEq K today, so non Ca chemistries ok No NSAIDs now or at discharge Recommend weekly hgb, basic metabolic panel x 3 weeks to be ordered by renal RN after discharge Follow-up with any nephro physician 2 to 4 weeks after discharge (3) Anemia: Plan: Significant anemia with hemoglobin 7.5 today, downtrending as we hydrate him. Agree with the iron 300 mg IV and will repeat this dose tomorrow -daily hgb; may need pRBC before d/c (4) Neurogenic bladder: Plan: -trial of condom catheter this evening > reports poor sleep as his caregiver ON; if [employer] works, may be able to d/c w/ it Admission and Anticipated Discharge Date Admission Date: June 07, 2021 Subjective no interval events; tolerating po; denies sob or orthopnea or cough; much less malaise than what he had on arrival; at bedside; she and pt report his breathing and speech are currently normal Review of Systems Review of Systems: All systems reviewed & are unremarkable except as noted in Subjective Physical Exam Constitutional: well developed, well nourished, + frail appearing and cooperat yfn; no acute distress Eyes: EOM intact bilaterally ENMT: Ears: no external ear abnormality Nose: no external nose abnormality Mouth: + dry oral mucous membranes Neck: no nuchal rigidity Respiratory: normal respiratory effort Auscultation: + diminished lung sounds (joaquin R base) Cardiovascular: Rate/Rhythm: regular rate and regular rhythm Heart Sounds: normal S1 and normal S2 Extremities: no edema Gastrointestinal (Abdomen): Inspection/Auscultation: normal bowel sounds Percussion/Palpation: abdomen soft; abdomen nontender Musculoskeletal: Extremities: + abnormal strength Skin: no rashes, warm and dry + pallor Neurologic: fluent speech, no tremor; lifts head off of pillow at end of sentence (as if straining) Psychiatric: Orientation: oriented x 3 Affect: euthymic affect Insight: good insight Judgement: good judgement Genitourinary: no che Results & Data ([facility]) Vital Signs (Past 12 Hours) Vital Signs Temp Pulse Pulse Resp BP Pulse Ox 06/10/21 15:35 36.6 C 98 H 20 112/69 95 06/10/21 15:07 97 H 06/10/21 11:22 82 06/10/21 07:15 36.7 C 82 18 119/73 94 Laboratory Results 06/10/21 06:34 06/10/21 06:34
[2021-06-10] MEDS: METOPROLOL SUCC 25MG EXT REL TAB PO SCH (20:02)
[2021-06-10] MEDS: ATORVASTATIN 40 MG TAB PO SCH (20:02)
[2021-06-10] MEDS: OXYBUTYNIN CHLORIDE XL 5 MG TABCR PO SCH (20:03)
[2021-06-11] MEDS: clonazePAM 0.25 MG TAB PO PRN (01:09)
[2021-06-11] MEDS: LEVOTHYROXINE SODIUM 88 MCG TABLET PO SCH (05:45)
[2021-06-11] MEDS: SODIUM CHLORIDE 0.9% 1000ML 1,000 ML IV SCH ×2 (06:59→17:36)
[2021-06-11 07:09] LABS: Hematocrit (blood only) 25.1 % (42-52); Hemoglobin 7.7 g/dL (14.0-18.0); Mean Corpuscular Hemoglobin 23.1 pg (25-34); Mean Corpuscular Hgb Conc 30.7 g/dL (32-36); Mean Corpuscular Volume 75.4 fL (80-100); Platelet Count 308 K/uL (130-400); RDW Coefficient of Variation 18.5 % (11.5-14.5); RDW Standard Deviation 51.3 fL (36.4-46.3); Red Blood Count 3.33 M/uL (4.7-6.1); White Blood Count 8.19 K/uL (4.8-10.8)
[2021-06-11 07:32] LABS: BUN Creatinine Ratio 11.9 (10-20); Calcium 10.8 mg/dl (8.5-10.1); Creatinine Clr Calc Pharmacy 52.2 ml/min; Est GFR (African American) 65.8 ml/min; Est GFR (Non-African American) 56.8 ml/min; Potassium 3.5 mmol/L (3.5-5.1)
[2021-06-11] MEDS: FAMOTIDINE 20 MG TAB PO PRN (08:02)
[2021-06-11] MEDS: PANTOprazole 40 MG TAB PO SCH (08:05)
[2021-06-11] MEDS ORDERED: IRON SUCROSE 300 MG in SODIUM CHLORIDE 0.9% 250 ML IV ONE (08:45)
--- NOTE | 2021-06-11 09:06 | Nephrology Progress Note ---
Date of Service June 11, 2021 Assessment & Plan (1) Hypercalcemia: Plan: presenting Ca 13.4, plateau'd at 10.8 today which is still elevated (ionized calcium today 1.45). Vitamin D on presentation was in the low 70s. May also have hypercalcemia of immobility. Biggest concern is for multiple myeloma given his presentation; initial work-up for this is pending. He has responded to fluid alone at least so far. ->>>Continue normal saline at 80 milliliters hourly if possible during other infusions today > may need another iv site ->>>creatinine improved enough today to use zometa >> will give 4 mg over 45 minutes ->>>also giving calcitonin 200 units SQ bid while in house starting this am Follow-up on multiple pending [facility] studies after discharge > spep, upep, PTHrp, vit D subtypes pending; added kappa / lambda ratio, B2 micrhoglobulin serum and urine We will need close in nephro follow-up after discharge Do not discharge on any calcium or vitamin D supplementation (2) ALPA (acute kidney injury): Plan: Presenting creatinine 1.6 on June 07 and essentially unchanged today despite significant fluid resuscitation. No obstruction on ultrasound which does also show incidentally 1 possible left stone. Baseline creatinine is 0.7. Creatinine in the mid ones for this quadriplegic patient is significant renal detriment. Suspect at least part of this relates to dehydration regressed to ATN with hypercalcemia. UA on presentation w/ 1+ protein, 5-10 WBC; else bland Daily basic metabolic panel while in-house -will give another 20 mEq K today, so non Ca chemistries ok No NSAIDs now or at discharge Recommend weekly hgb, basic metabolic panel x 3 weeks to be ordered by renal RN after discharge Follow-up with any nephro physician [facility] [place] [place] 2 to 4 weeks after discharge (3) Anemia: Plan: Significant anemia with hemoglobin 7.7 today, downtrended but now plateau'd as we hydrate him. ordered another iron 300 mg IV today -daily hgb; may need pRBC before d/c (4) Neurogenic bladder: Plan: -trial of condom catheter 06/10 pm > reports poor sleep as his caregiver ON; if [employer] works, may be able to d/c w/ it Admission and Anticipated Discharge Date Admission Date: June 07, 2021 Subjective no interval events clinically; + constipation; very anxious for d/c home, really struggles to communicate in hospital; condom cath has small leak but overall a success Review of Systems Review of Systems: All systems reviewed & are unremarkable except as noted in Subjective Physical Exam Constitutional: well developed, well nourished, + frail appearing and co operative; no acute distress Eyes: EOM intact bilaterally ENMT: Ears: no external ear abnormality Nose: no external nose abnormality Mouth: + dry oral mucous membranes Neck: no nuchal rigidity Respiratory: normal respiratory effort Auscultation: + diminished lung sounds Cardiovascular: Rate/Rhythm: regular rate and regular rhythm Heart Sounds: normal S1 and normal S2 Extremities: no edema Gastrointestinal (Abdomen): Inspection/Auscultation: normal bowel sounds Percussion/Palpation: abdomen soft; abdomen nontender Musculoskeletal: Extremities: + abnormal strength Skin: no rashes, warm and dry + pallor Psychiatric: Orientation: oriented x 3 Affect: euthymic affect Insight: good insight Judgement: good judgement Results & Data ([facility]) Vital Signs (Past 12 Hours) Vital Signs Temp Pulse Pulse Resp BP Pulse Ox 06/11/21 07:21 36.5 C 85 18 132/78 93 06/11/21 07:01 82 06/11/21 03:11 36.4 C L 86 20 126/74 91 06/10/21 23:00 36.7 C 95 H 20 121/72 95 06/10/21 22:18 96 H Laboratory Results 06/11/21 06:27 06/11/21 06:27
[2021-06-11] MEDS ORDERED: ZOLEDRONIC ACID 4 MG in 0.9 % SODIUM CHLORIDE 100 ML IV ONE ×2 (09:45→11:00)
[2021-06-11] MEDS: CALCITONIN SALMON 200 UNITS in SYRINGE 0 ML SQ SCH ×2 (10:27→21:15)
[2021-06-11] MEDS ORDERED: IRON SUCROSE 300 MG in SODIUM CHLORIDE 0.9% 250 ML IV SCH (10:30)
[2021-06-11] MEDS: VITRON C PO SCH ×2 (11:13→11:17)
[2021-06-11] MEDS: tiZANidine HCL 4 MG TABLET PO PRN ×2 (16:14→21:19)
--- NOTE | 2021-06-11 18:03 | Hospitalist Progress Note ---
Date of Service June 11, 2021 Assessment & Plan (1) Hypercalcemia: (2) ALPA (acute kidney injury): (3) Multiple sclerosis: (4) Quadriplegia: (5) CAD (coronary artery disease): (6) Diabetes mellitus, type II: (7) Neurogenic bladder: (8) Anemia: Plan: Hypercalcemia Pt was sent to the ER for abnormal lab with Calcium 13.4 received IV, repeat calcium 10.8 today Nephrology on board Continue to hold calcium supplement and multivitamin and vit D Alendronate given and starting on Calcitonin BID PTH-related peptide, urine for Bence-Gaviria, immunofixation, vitamin D level and also 1,25-dihydroxyvitamin D level and BMP in AM Continue IVF Continue monitor BMP weekly outpatient Anemia Hgb dropped to 7.7 today Had positive FOBT outpatient Recent EGD on 05/31/2021 showed Esophagus and stomach normal. Recent colonoscopy on 05/31/21 showed Multiple diverticula in sigmoid colon, otherwise normal. Reports BM today of formed brown stool. Ticagrelor on hold due to low hemoglobin (case discussed with cardiology and ok to hold it) IV Iron (Venofer ) 300mg given today again Continue monitor CBC Diabetes Most recent Hba1c 6.6 on 04/2021 Not on any diabetic med Discontinued insulin coverage since pt has been refused it stable ALPA Creatinine on admission 1.6, baseline creatinine 0.8 Continue IVF Creatinine 1.34 today Avoid nephrotoxic agents Continue monitor BMP CAD Continue statin and metoprolol Brillinta on hold due too low hemoglobin Case case discussed with cardiology and ok to hold it Quadriplegia from his advanced multiple sclerosis. Neurogenic bowel and bladder He has been stable off disease modifying therapy for several years. Stable DVT px on SCD due to low hemoglobin Code status Full code Admission and Anticipated Discharge Date Admission Date: June 07, 2021 Subjective Pt was seen and examined for follow up of hypercalcemia and anemia Lying in bed with no acute distress with at bedside He said that he feels ok and he would like to go home today Denies any chest pain, palpitation, dizziness and fever Review of Systems Review of Systems: All systems reviewed & are unremarkable except as noted in Subjective Physical Exam Physical Exam: General: Examined in wheelchair, no acute distress, chronic ill appearing Head: normocephalic, atraumatic Eyes: PERRL, EOM's intact, conjunctiva non-injected, anicteric ENT: normal inspection external ears, nose, mucous membranes moist Neck: supple, trachea midline Lungs: clear, no respiratory distress, no wheezing/rhonchi/rales CV: tachycardia, no murmur, no pretibial edema Abd: normal BS, soft, non-tender Ext: no cyanosis, no edema, no calf tenderness Neuro: A&O x 3, +quadriplegia, normal affect Skin: warm, dry Results & Data Results & Data ([facility]) Vital Signs (Past 12 Hours) Vital Signs Temp Pulse Pulse Resp BP Pulse Ox 06/11/21 17:39 102 H 06/11/21 14:56 36.9 C 102 H 20 124/83 95 06/11/21 11:41 36.7 C 90 20 133/80 93 06/11/21 07:21 36.5 C 85 18 132/78 93 06/11/21 07:01 82
[2021-06-11 18:05] LABS: Creatinine Urine Random 25.7 mg/dl; Protein Creatinine Ratio Urine 6.4 (0-0.2); Total Protein Urine Random 163.5 mg/dl (0-11.9)
[2021-06-11] MEDS: OXYBUTYNIN CHLORIDE XL 5 MG TABCR PO SCH (21:17)
[2021-06-11] MEDS: ATORVASTATIN 40 MG TAB PO SCH (21:18)
[2021-06-11] MEDS: METOPROLOL SUCC 25MG EXT REL TAB PO SCH (21:18)
[2021-06-12] MEDS: clonazePAM 0.25 MG TAB PO PRN (01:46)
[2021-06-12] MEDS: SODIUM CHLORIDE 0.9% 1000ML 1,000 ML IV SCH (04:46)
[2021-06-12] MEDS: LEVOTHYROXINE SODIUM 88 MCG TABLET PO SCH (05:55)
[2021-06-12] MEDS: PANTOprazole 40 MG TAB PO SCH (09:29)
[2021-06-12] MEDS ORDERED: IRON SUCROSE 300 MG in SODIUM CHLORIDE 0.9% 250 ML IV ONE (09:30)
[2021-06-12 09:40] LABS: Hematocrit (blood only) 25.1 % (42-52); Hemoglobin 7.7 g/dL (14.0-18.0); Mean Corpuscular Hemoglobin 23.1 pg (25-34); Mean Corpuscular Hgb Conc 30.7 g/dL (32-36); Mean Corpuscular Volume 75.4 fL (80-100); Mean Platelet Volume 9.2 fL (7.4-10.4); Platelet Count 353 K/uL (130-400); RDW Coefficient of Variation 18.7 % (11.5-14.5); RDW Standard Deviation 51.8 fL (36.4-46.3); Red Blood Count 3.33 M/uL (4.7-6.1); White Blood Count 9.88 K/uL (4.8-10.8)
[2021-06-12 09:49] LABS: BUN Creatinine Ratio 9.9 (10-20); Calcium 9.7 mg/dl (8.5-10.1); Creatinine Clr Calc Pharmacy 57.9 ml/min; Est GFR (African American) 74.4 ml/min; Est GFR (Non-African American) 64.2 ml/min; Potassium 3.4 mmol/L (3.5-5.1)
[2021-06-12] MEDS ORDERED: POTASSIUM CHLORIDE CRTAB 20 MEQ TABCR PO STA (10:16)
[2021-06-12] MEDS: CALCITONIN SALMON 200 UNITS in SYRINGE 0 ML SQ SCH (10:23)
--- NOTE | 2021-06-12 10:50 | Nephrology Progress Note ---
Date of Service June 12, 2021 Assessment & Plan (1) Hypercalcemia: Plan: presenting Ca 13.4, normalized for first time today. Vitamin D on presentation was in the low 70s. May also have hypercalcemia of immobility. Biggest concern is for multiple myeloma given his presentation; initial work-up for this is pending; 6 gm proteinuria difficult to interpret on catheterized specimen but concerning ->>>Continue normal saline at 80 milliliters hourly ->>>s/p 06/11 zometa IV 4 mg ->>>also 06/11 AM started calcitonin 200 units SQ bid (will get about 3 doses) Follow-up on multiple pending [facility] studies after discharge > spep, upep, PTHrp, vit D subtypes pending; added kappa / lambda ratio, B2 micrhoglobulin serum and urine NEPHROLOGY DISCHARGE RECOMMENDATIONS -Hospital discharge appt with Dr Juanito Sheppard or myself about 2 wks after d/c in [facility] -needs hgb, bmp on 06/14 or 06/15 to be ordered by nephro RN and weekly x 3 after hospital discharge Do not discharge on any calcium or vitamin D supplementation (2) ALPA (acute kidney injury): Plan: Presenting creatinine 1.6 on June 07 and now improved today to 1.2 after significant fluid resuscitation: prerenal/ischemic ATN from hypercalcemia. No obstruction on ultrasound which does also show incidentally 1 possible left stone. Baseline creatinine is 0.7. Creatinine in the mid ones for this quadriplegic patient is significant renal detriment. Suspect at least part of this relates to dehydration progressed to ATN with hypercalcemia. UA on presentation w/ 1+ protein, 5-10 WBC; else bland > 6+gm proteinuria (though catheterized specimen) Daily basic metabolic panel while in-house ->will give another 20 mEq K today No NSAIDs now or at discharge d/c recs as above (3) Anemia: Plan: Significant anemia with hemoglobin 7.7 today, downtrended but now plateau'd for a few days as we hydrate him. for another iron 300 mg IV today -daily hgb -d/c on po iron (4) Neurogenic bladder: Plan: -trial of condom catheter 06/10 pm > reports poor sleep as his caregiver ON; if [employer] works, may be able to d/c w/ it Admission and Anticipated Discharge Date Admission Date: June 07, 2021 Subjective no interval events; condom cath ON w/o leaks and pt pleased; no sob, no n/v; remains eager for d/c seen on rounds approx 0750 Review of Systems Review of Systems: All systems reviewed & are unremarkable except as noted in Subjective Physical Exam Constitutional: well developed, well nourished, + frail appearing and cooperative; no acute distress Eyes: EOM intact bilaterally ENMT: Ears: no external ear abnormality Nose: no external nose abnormality Mouth: + dry oral mucous membranes Neck: no nuchal rigidity Respiratory: normal respiratory effort Auscultation: + diminished lung sounds Cardiovascular: Rate/Rhythm: regular rate and regular rhythm Heart Sounds: normal S1 and normal S2 Extremities: no edema Gastrointestinal (Abdomen): Inspection/Auscultation: normal bowel sounds Percussion/Palpation: abdomen soft; abdomen nontender Musculoskeletal: Extremities: + abnormal strength Skin: no rashes, warm and dry + pallor Psychiatric: Orientation: oriented x 3 Affect: euthymic affect Insight: good insight Judgement: good judgement Genitourinary: ample light yellow urine in che bag Results & Data ([facility]) Vital Signs (Past 12 Hours) Vital Signs Temp Pulse Resp BP Pulse Ox 06/12/21 07:19 36.7 C 91 H 18 118/76 91 06/12/21 03:28 36.5 C 95 H 18 123/74 91 06/11/21 22:51 36.6 C 96 H 18 119/73 90 Laboratory Results 06/12/21 07:38 06/12/21 07:38 calcium normalized including iCa has 6.4 gm protein in catheterized specimen
[2021-06-13 11:11] LABS: Beta-2-Microglobulin 6.86 mg/L (< OR = 2.51); Free Kappa 19.1 mg/L (3.3-19.4); Free Kappa/Lambda Ratio <0.01 (0.26-1.65); Free Lambda 28737.8 mg/L (5.7-26.3)
[2021-06-16 16:41] LABS: PTH Related Protein 14 pg/mL (11-20); Vitamin D 1,25 45 pg/mL (18-72); Vitamin D3,1,25 45 pg/mL
--- NOTE | 2021-06-17 01:46 | Discharge Summary ---
Date of Service June 11, 2021 Admission HPI Per Admitting Provider Patient is 61 y/o M with PMH MS, quadriplegia, neurogenic bladder, CAD s/p stent, DM II, HLD presented to ER for abnormal labs. Patient had outpatient labs completed and had hypercalcemia and elevated creatine and was referred to ER. Patient reports past several weeks with increased fatigue, weakness, decreased appetite, nausea and "gnawing" sensation to stomach. He was prescribed Carafate which he hasn't started yet. Is using famotidine and omeprazole. States stopped taking aspirin secondary to nausea. Reports increased urinary frequency. He recently saw urology and was to increase oxybutynin from 10mg to 15mg daily, however has not started yet. Feels appetite is decreased and he has been trying to watch carb intake and hasn't been eating as much. He stopped calcium supplement a few days ago. Is still taking multivitamin. Outpatient records reviewed. Had Hgb of 10.7 on 05/02/21, Cr: 0.8. Ca: 9.5 on 04/26/21. A1c: 6.6 on 04/26/21. Had positive FOBT outpatient and subsequently had EGD and colonoscopy. 05/31/2021 EGD: Esophagus and stomach normal. 05/31/2021 colonoscopy: Multiple diverticula in sigmoid colon, otherwise normal. Reports BM today of formed brown stool. He reports past several days has been taking is Zanaflex HS and during the night instead of every 4 hours as he thought this medication may be causing some weakness. Has chronic intermittent GARCIA's and denies any increase GARCIA frequency or intensity. Denies current GARCIA. Denies fever/chills, diaphoresis, N/V/D, dizziness, syncope, vision changes, neck pain, CP, SOB, orthopnea, palpitations, cough, sore throat, choking, otalgia, rhinorrhea, abdominal pain, extremity edema, rashes, hematuria. Admission Exam Per Admitting Provider General: Examined in wheelchair, no acute distress, chronic ill appearing Head: normocephalic, atraumatic Eyes: PERRL, EOM's intact, conjunctiva non-injected, anicteric ENT: normal inspection external ears, nose, mucous membranes moist Neck: supple, trachea midline Lungs: clear, no respiratory distress, no wheezing/rhonchi/rales CV: tachycardia, rate 104, regular rhythm, no murmur, no pretibial edema Abd: normal BS, soft, non-tender Ext: no cyanosis, no edema, no calf tenderness Neuro: A&O x 3, +quadriplegia, normal affect Skin: warm, dry Principal Diagnosis (1) Hypercalcemia: (2) ALPA (acute kidney injury): (3) Multiple sclerosis: (4) Quadriplegia: (5) CAD (coronary artery disease): (6) Diabetes mellitus, type II: (7) Neurogenic bladder: (8) Anemia: Discharge Exam General: Examined in wheelchair, no acute distress, chronic ill appearing Head: normocephalic, atraumatic Eyes: PERRL, EOM's intact, conjunctiva non-injected, anicteric ENT: normal inspection external ears, nose, mucous membranes moist Neck: supple, trachea midline Lungs: clear, no respiratory distress, no wheezing/rhonchi/rales CV: tachycardia, no murmur, no pretibial edema Abd: normal BS, soft, non-tender Ext: no cyanosis, no edema, no calf tenderness Neuro: A&O x 3, +quadriplegia, normal affect Skin: warm, dry Discharge Data Allergies Allergy/AdvReac Type Severity Reaction Status Date / Time glatiramer (copolymer 1) Allergy Severe Anaphylaxis Verified 05/31/21 08:38 [From Copaxone] Consultations 06/07/21 20:03 ED Decision to Admit Stat 06/09/21 09:18 Consult Nephrology Routine Ordered Studies 06/07/21 19:56 US renal/blad retro comp Urgent SINGLE VIEW CHEST CLINICAL HISTORY: Renal failure FINDINGS: An AP, portable, upright chest radiograph is compared to study dated 12/14/2016. The examination is degraded by portable technique and patient rotation. The cardiomediastinal silhouette is unremarkable. There is elevation of the right hemidiaphragm and bibasilar atelectasis. The lungs and pleural spaces are otherwise clear. No pneumothorax is seen. The skeletal structures are osteopenic. The bony thorax is grossly intact. IMPRESSION: No acute cardiopulmonary abnormality. ACT 112: Negative or not required by law. Electronically signed by: Cb Avila M.D. 06/07/2021 8:52 PM Dictated:06/07/212050 Transcribed: 06/07/212050 RENAL ULTRASOUND CLINICAL HISTORY: Elevated creatinine. COMPARISON STUDY: CT of the abdomen February 16, 2010. Renal ultrasound August 12, 2018. TECHNIQUE: Sonography of the kidneys and the urinary bladder was performed. FINDINGS: Right kidney measures 11.1 cm in maximal dimension and the left measures 10.6 cm. There is no hydronephrosis. There is a possible 5 mm nonobstructing left renal calculus. No renal masses are identified by sonography. Both ureteral jets were identified. IMPRESSION: 1. No hydronephrosis. 2. Possible nonobstructing 5 mm left renal calculus. ACT 112: Negative or not required by law. Electronically signed by: Dionte Fam M.D. 06/08/2021 8:05 AM Dictated:06/08/21803 Transcribed: 06/08/21803 Hospital Course (1) Hypercalcemia: (2) ALPA (acute kidney injury): (3) Multiple sclerosis: (4) Quadriplegia: (5) CAD (coronary artery disease): (6) Diabetes mellitus, type II: (7) Neurogenic bladder: (8) Anemia: Hypercalcemia Pt was sent to the ER for abnormal lab with Calcium 13.4 received IV, repeat calcium 10.8 today Nephrology on board Continue to hold calcium supplement and multivitamin and vit D Alendronate given and starting on Calcitonin BID PTH-related peptide, urine for Bence-Gaviria, immunofixation, vitamin D level and also 1,25-dihydroxyvitamin D level and BMP in AM Continue IVF Continue monitor BMP weekly outpatient Anemia Hgb dropped to 7.7 today Had positive FOBT outpatient Recent EGD on 05/31/2021 showed Esophagus and stomach normal. Recent colonoscopy on 05/31/21 showed Multiple diverticula in sigmoid colon, otherwise normal. Reports BM today of formed brown stool. Ticagrelor on hold due to low hemoglobin (case discussed with cardiology and ok to hold it) IV Iron (Venofer ) 300mg given today again Continue monitor CBC Diabetes Most recent Hba1c 6.6 on 04/2021 Not on any diabetic med Discontinued insulin coverage since pt has been refused it stable ALPA Creatinine on admission 1.6, baseline creatinine 0.8 Continue IVF Creatinine 1.34 today Avoid nephrotoxic agents Continue monitor BMP CAD Continue statin and metoprolol Brillinta on hold due too low hemoglobin Case case discussed with cardiology and ok to hold it Quadriplegia from his advanced multiple sclerosis. Neurogenic bowel and bladder He has been stable off disease modifying therapy for several years. Stable DVT px on SCD due to low hemoglobin Code status Full code Total Time Total Time Spent Total Time Spent (In Minutes): 35 minutes Discharge Plan Discharge Items Patient Disposition: Home - Home Health Services Reason For Visit: HYPERCALCEMIA, TACHY Discharge Diagnosis: (1) Hypercalcemia: (2) ALPA (acute kidney injury): (3) Multiple sclerosis: (4) Quadriplegia: (5) CAD (coronary artery disease): (6) Diabetes mellitus, type II: (7) Neurogenic bladder: (8) Anemia: Activity: Resume your previous activity Non-emergency contact: Primary Care Provider and Energy Efficiency Finance Manager Call non-emergency contact if: you have any medication questions Follow-up/Referrals: Juanito Sheppard MD [Surgeon] - (Date & Time 07/11/2021 1:00 PM Provider Juanito Sheppard MD Department Nephrology, [facility] ) Shanthi Castano DO [Primary Care Provider] - (Date & Time 06/14/2021 1:40 PM Provider Shanthi Castano DO Department [facility] ) Diet: Heart Healthy Addtl Attending Provider Instructions: Follow up with your primary care provider Dr. Castano on 06/14/2021 @1:40 PM at [facility] Follow up with your nephrology Dr Juanito Sheppard or Dr. Eagle in 2 wks at the [facility] You will need to follow up with hematology outpatient if anemia worsening Check CBC and bmp on 06/14 or 06/15 to monitor your hemoglobin and electrolytes/kidney function respectively; then CBC and BMP weekly x 3 Your provider will tell you when to resume the Brillinta after the 06/14 lab once hemoglobin stable Discontinue calcium or vitamin D supplementation Fall precaution Pending Studies at Discharge: Yes Studies:: lab pending for multiple myeloma and hypercalcemia work up Stand-Alone Forms: My [employer], Smoking Cessation Medications and DC Order Prescriptions: Continued (DME) Wheelchair (Powered) Device See Rx Instructions .ROUTE .MEDSUPPLY Qty: 2 RF: 0 acetaminophen 500 mg capsule 500 mg PO Q6H PRN (Reason: Pain) RF: 0 atorvastatin 40 mg tablet 40 mg PO HS RF: 0 levothyroxine 88 mcg tablet 88 mcg PO QAM RF: 0 ticagrelor 60 mg tablet 60 mg PO BID RF: 0 metoprolol succinate 50 mg tablet extended release 24 hr 75 mg PO HS RF: 0 omeprazole 40 mg capsule,delayed release(DR/EC) 40 mg PO DAILY RF: 0 famotidine 20 mg tablet 20 mg PO BID PRN (Reason: Heartburn) RF: 0 nitroglycerin 0.4 mg tablet, sublingual 0.4 mg sublingual UD PRN (Reason: Chest Pain) RF: 0 clonazepam 0.5 mg tablet 0.25 mg PO UD PRN (Reason: spasms) RF: 0 oxybutynin chloride 10 mg tablet extended release 24hr 10 mg PO QPM RF: 0 tizanidine 4 mg tablet 2 mg PO Q4 PRN (Reason: Muscle Spasm) RF: 0 Discontinued calcium citrate-vitamin D3 250 mg calcium- 200 unit tablet 1 tab PO BID RF: 0 multivitamin tablet 1 tab PO QAM RF: 0 calcium polycarbophil 625 mg tablet 625 mg PO BID RF: 0 cholecalciferol (vitamin D3) [Vitamin D3] 50 mcg (2,000 unit) Tablet 2,000 unit PO QAM RF: 0 Discharge Orders: Discharge Order (Routine); Ordered 06/12/21 Ordered By: Jeff Elkins Admission Data Admit Date/Time: 06/07/21 22:12 Attending Provider: Jeff Elkins Admit Provider: Yariel Soares Primary Care Provider: Shanthi Castano Other Providers: Yariel Soares ; Juanito Sheppard Other Interventions: Discharge Summary Assessment (RN) Last Done: 06/12/21 13:34
== END 2021-06-12 15:09 | disposition home health service (06) | DRG 682 ==
LOC: ED 18:44 → 2W 22:12
DX: I25.10 Atherosclerotic heart disease of native coronary artery without angina pectoris; Z79.890 Hormone replacement therapy; K59.2 Neurogenic bowel, not elsewhere classified; N31.9 Neuromuscular dysfunction of bladder, unspecified; Z99.3 Dependence on wheelchair; Z88.6 Allergy status to analgesic agent; Z90.09 Acquired absence of other part of head and neck; Z95.5 Presence of coronary angioplasty implant and graft; I11.0 Hypertensive heart disease with heart failure; G82.50 Quadriplegia, unspecified; G35 Multiple sclerosis; E11.9 Type 2 diabetes mellitus without complications; E03.9 Hypothyroidism, unspecified; I25.2 Old myocardial infarction; E78.5 Hyperlipidemia, unspecified; E83.52 Hypercalcemia; Z87.442 Personal history of urinary calculi; Z90.49 Acquired absence of other specified parts of digestive tract; I50.32 Chronic diastolic (congestive) heart failure; N17.0 Acute kidney failure with tubular necrosis; D64.9 Anemia, unspecified; Z87.891 Personal history of nicotine dependence; G47.00 Insomnia, unspecified; E87.1 Hypo-osmolality and hyponatremia

== ENCOUNTER 2021-07-17 05:03 | Observation (INO) ==
[2021-07-17] MEDS ORDERED: SODIUM CHLORIDE 0.9% 500 ML IV ONE (05:27)
--- NOTE | 2021-07-17 05:34 | Emergency Department Note ---
Impression & Plan Hypoxia, Metastatic disease, Pulmonary edema, Acute hyponatremia Admit to the [facility] service for comfort care ED Provider Note NAME: ORI BARBOSA AGE: 61 SEX: M ARRIVES VIA: Ambulance INFORMANT: Patient ED PROVIDER(S): Kelly Acevedo DO CHIEF COMPLAINT: Shortness of breath PLAN: Disposition: Admit to the [facility] service Condition: Critical MEDICAL DECISION MAKING: This is a 61-year-old male patient with multiple sclerosis who presents to the emergency department from home with worsening shortness of breath. The patient has been recently diagnosed with multiple myeloma and suffering from significant abdominal distention. The past couple days, he has had increasing shortness of breath. Upon EMS arrival at his home, he had an O2 saturation of 80%. He received a DuoNeb treatment and his O2 saturations came up to 96% on 2 L of oxygen. Chest x-ray shows evidence of severe pulmonary edema associated with his hypoxia. He is noted to be significantly hyponatremic. CT scan of the abdomen/pelvis shows metastatic disease. I had a lengthy discussion with the patient, his and son and they are interested in comfort measures. In fact the patient was interested in being discharged home to hospice care but the was not comfortable with having the ability to care for him at home today not having the services set up in a timely manner. I discussed the case with Dr. Monteiro from the [facility] service and they will admit for comfort measures until hospice can be made available at home. Triage Nursing notes reviewed and agree with them. Additional history obtained from EMS Vital Signs: reviewed and unremarkable Differential diagnosis: Respiratory failure; pneumonia; COVID-19; congestive heart failure Diagnostics interpreted by me: ECG: Normal sinus rhythm at a rate of [address] segment elevation or signs of ischemia Cardiac Monitoring: Normal sinus rhythm at a rate of 79 ER treatment provided: IV fentanyl Laboratory studies: See below Imaging studies: As per my interpretation Portable chest x-ray: Acute pulmonary edema CT scan of the abdomen/pelvis and chest: Please see radiology report-consistent with significant metastatic disease from multiple myeloma. HPI: 61/M arrives for evaluation of shortness of breath. The patient has a long history of multiple sclerosis which is left him completely immobile. The patient has been newly diagnosed with multiple myeloma which is left him with significant abdominal distention. The patient underwent a CT scan of his abdomen pelvis just 2 days ago and he was awaiting the results from [facility]. Tonight, the patient developed worsening shortness of breath and wheezing. EMS was called to the house where they found his O2 saturation to be 80% on room air. He was given a DuoNeb treatment which brought his sats up to 96%. ROS: See above HPI for pertinent positives & negatives. A total of 10 systems reviewed and were otherwise negative. PAST MEDICAL HISTORY:See Below PAST SURGICAL HISTORY:See Below FAMILY HISTORY:See Below SOCIAL HISTORY:See Below HOME MEDICATIONS:See list ALLERGIES:See list VITALS:See Below PHYSICAL EXAMINATION: HEENT: Head - normocephalic and atraumatic Pupils are equal, round, and reactive to light. Extraocular eye muscles are intact, and sclera are anicteric. Nose - moist nasal mucosa without discharge. Mouth - moist buccal mucosa. Oropharynx is nonerythematous and there is no tonsillar exudate or edema noted. Neck: Supple; no JVD, nuchal rigidity, cervical lymphadenopathy, or auscultated bruits. Heart: Regular rate and rhythm. There is a normal S1 and S2 with no murmurs, clicks, or gallops appreciated. Lungs: Breath sounds in all lung joshi Abdomen: Extremely distended with hypoactive bowel sounds there are no palpable pulsatile masses or hepatosplenomegaly. There is no guarding, rigidity, or rebound noted. Extremities: No evidence of cyanosis, clubbing, or edema. There are easily palpable peripheral pulses. Skin: Pale, warm and dry with good turgor and no rashes. ED COURSE: Times/Reassessments: 515: The patient was evaluated in room C4. A complete history and physical was performed. Previous electronic medical records were reviewed. An order was placed for continuous cardiac monitoring. The patient was in a normal sinus rhythm at a rate of 79. The patient was hypoxic without supplemental oxygen. He was given IV fentanyl for the pain in his abdomen. A portable chest x-ray was performed. The patient went for CT scan of the chest and abdomen. I have personally spent greater than 80 minutes of critical care time in the direct management of this patient. This includes bedside care, interpretation of diagnostic studies, and testing, discussion with consultants, patient, and family members, and other required patient management activities. This 80 minutes is in excess of all separately billable procedures. Kelly Acevedo DO Past Med/Surg History Medical History (Updated 07/17/21 @ 21:10 by Kelly Acevedo DO) Acute hyponatremia ALPA (acute kidney injury) History of kidney stones Hypercalcemia Hypothyroidism Insomnia Multiple sclerosis wheelchair bound Muscle hypertonicity On anticoagulant therapy on brilinta Quadriplegia states can move very little, also states he can control his bladder/bowel Squamous cell carcinoma of face STEMI (ST elevation myocardial infarction) (~02/2016) follows with Dr. Ahuja Surgical History History of cardiac cath (~02/2016) with 1 stent placed History of carpal tunnel repair History of colonoscopy History of heart artery stent 1 stent History of Mohs surgery for squamous cell carcinoma of skin History of tonsillectomy History of wisdom tooth extraction S/P appendectomy S/P hernia repair as an infant Family History Father Prostate cancer Family/Other Cancer Heart disease Hypertension Nephrolithiasis Social History Smoking Status: Former smoker Second Hand Exposure: No; Hx Alcohol Use: No Hx Substance Use: No Preferred Language: Turkish Communication Ability: Effective Biomedical Equipment Technician Required: No Beliefs That Will Affect Care: None marital status: Current Living Situation: Spouse Current Living Situation Comment: and child. current occupational status: retired How many Children do You have: 1 Other Information That Helps Us Care for You: No Feels Safe at Home: Yes Safety Concerns: Feels Safe At This Time Assistive Devices: Mechanical Lift and Wheelchair Allergies Allergies Allergy/AdvReac Type Severity Reaction Status Date / Time glatiramer (copolymer 1) Allergy Severe Anaphylaxis Verified 07/17/21 06:28 [From Copaxone] Home Meds Home Medications Medication Instructions Recorded Confirmed acetaminophen 500 mg capsule 500 mg PO Q6H PRN 03/20/19 07/17/21 atorvastatin 40 mg tablet 40 mg PO HS 03/20/19 07/17/21 levothyroxine 88 mcg tablet 88 mcg PO QAM tab 03/20/19 07/17/21 oxybutynin chloride 10 mg 10 mg PO HS 05/30/21 07/17/21 tablet,extended release 24 hr tizanidine 4 mg tablet 2 mg PO Q4 PRN 05/30/21 07/17/21 clonazepam 0.5 mg tablet 0.25 mg PO UD PRN 06/07/21 07/17/21 metoprolol succinate 50 mg 75 mg PO HS 06/07/21 07/17/21 tablet,extended release 24 hr nitroglycerin 0.4 mg sublingual 0.4 mg SUBLINGUAL UD PRN 06/07/21 07/17/21 tablet omeprazole 40 mg capsule,delayed 40 mg PO QAM 06/07/21 07/17/21 release acyclovir 400 mg tablet 400 mg PO BID 07/17/21 07/17/21 bortezomib 3.5 mg injection powder 0 mg SUBCUT WK 07/17/21 07/17/21 for solution (Velcade) dexamethasone 4 mg tablet 40 mg PO WK 07/17/21 07/17/21 hydrocortisone 2.5 % topical 1 applic TOPICAL DAILY PRN 07/17/21 07/17/21 ointment Previous Rx's Medication Instructions Recorded Wheelchair (Powered) #2 ea 11/23/20 Results & Data (ED) Vital Signs Vital Signs - 24 hr 07/17/21 05:10 07/17/21 05:22 07/17/21 05:27 Temperature 36.4 C L Temperature Source Oral Pulse Rate 79 Pulse Rate [Apical] 79 Pulse Rate from SpO2 Sensor Respiratory Rate 18 17 Respiratory Effort / Characteristics Labored Short of Breath Labored Short of Breath Respiratory Depth Deep Deep Blood Pressure 116/72 Blood Pressure [Right Arm] 116/72 Blood Pressure Mean 86 Blood Pressure Mean [Right Arm] 86 Blood Pressure Position [Right Arm] Semi-fowlers Pulse Oximetry 97 97 Oxygen Delivery Method Nasal Cannula Nasal Cannula Nasal Cannula Oxygen Flow Rate 2 2 2 Sepsis Recent Fever Within 48 Hours No Sepsis New/Unexplained Change in Mental Status N/A Sepsis Action Taken by Nursing No Action Required 07/17/21 05:35 07/17/21 06:16 07/17/21 06:54 Temperature Temperature Source Pulse Rate 80 84 Pulse Rate [Apical] 80 Pulse Rate from SpO2 Sensor Respiratory Rate 16 19 20 Respiratory Effort / Characteristics Respiratory Depth Blood Pressure Blood Pressure [Right Arm] 117/74 Blood Pressure Mean Blood Pressure Mean [Right Arm] 88 Blood Pressure Position [Right Arm] Semi-fowlers Pulse Oximetry 96 96 99 Oxygen Delivery Method Nasal Cannula Nasal Cannula Nasal Cannula Oxygen Flow Rate 2 2 2 Sepsis Recent Fever Within 48 Hours Sepsis New/Unexplained Change in Mental Status Sepsis Action Taken by Nursing 07/17/21 07:00 07/17/21 07:43 07/17/21 08:00 Temperature Temperature Source Pulse Rate 82 95 H 90 Pulse Rate [Apical] Pulse Rate from SpO2 Sensor 82 95 H 90 Respiratory Rate 15 15 14 Respiratory Effort / Characteristics Respiratory Depth Blood Pressure 137/88 Blood Pressure [Right Arm] Blood Pressure Mean 104 Blood Pressure Mean [Right Arm] Blood Pressure Position [Right Arm] Pulse Oximetry 97 96 93 Oxygen Delivery Method Nasal Cannula Nasal Cannula Nasal Cannula Oxygen Flow Rate 2 2 2 Sepsis Recent Fever Within 48 Hours Sepsis New/Unexplained Change in Mental Status Sepsis Action Taken by Nursing 07/17/21 08:30 07/17/21 09:00 07/17/21 09:30 Temperature Temperature Source Pulse Rate 85 89 82 Pulse Rate [Apical] Pulse Rate from SpO2 Sensor 85 89 83 Respiratory Rate 12 13 13 Respiratory Effort / Characteristics Respiratory Depth Blood Pressure 121/75 125/79 Blood Pressure [Right Arm] Blood Pressure Mean 90 94 Blood Pressure Mean [Right Arm] Blood Pressure Position [Right Arm] Pulse Oximetry 95 95 97 Oxygen Delivery Method Nasal Cannula Nasal Cannula Nasal Cannula Oxygen Flow Rate 2 2 2 Sepsis Recent Fever Within 48 Hours Sepsis New/Unexplained Change in Mental Status Sepsis Action Taken by Nursing Laboratory Data Result diagrams: 07/17/21 06:12 07/17/21 06:12 Lab Results 07/17/21 07/17/21 07/17/21 Range/Units 06:12 06:12 06:12 WBC 18.14 H (4.8-10.8) K/uL RBC 3.57 L (4.7-6.1) M/uL Hgb 8.7 L (14.0-18.0) g/dL Hct 27.8 L (42-52) % MCV 77.9 L (80-100) fL MCH 24.4 L (25-34) pg MCHC 31.3 L (32-36) g/dL RDW Std Deviation 62.4 H (36.4-46.3) fL RDW Coeff of Travon 21.8 H (11.5-14.5) % Plt Count 309 (130-400) K/uL MPV 9.2 (7.4-10.4) fL Immature Gran % (Auto) 5.5 % Neut % (Auto) 88.7 % Lymph % (Auto) 1.0 % Meagher % (Auto) 4.7 % Eos % (Auto) 0.0 % Baso % (Auto) 0.1 % Neut # (Auto) 16.08 H (1.4-6.5) K/uL Lymph # (Auto) 0.19 L (1.2-3.4) K/uL Meagher # (Auto) 0.86 H (0.11-0.59) K/uL Eos # (Auto) 0.00 (0-0.5) K/uL Baso # (Auto) 0.02 (0-0.2) K/uL Immature Gran # (Auto) 0.99 H (0.00-0.02) K/uL Anisocytosis Present PT 10.8 (9.0-12.0) Seconds INR 1.0 (0.9-1.1) APTT 32.2 H (21.0-31.0) Seconds PTT Ratio 1.2 Sodium (136-145) mmol/L Potassium (3.5-5.1) mmol/L Chloride (98-107) mmol/L Carbon Dioxide (21-32) mmol/L Anion Gap (3-11) BUN (6-23) mg/dl Creatinine (0.6-1.4) mg/dl Est Cr Clr Drug Dosing ml/min Est GFR ( Amer) ml/min Est GFR (Non-Af Amer) ml/min BUN/Creatinine Ratio (10-20) Glucose (70-99(Fasting)) mg/dl Osmolality (280-300) mOsm/kg Lactate (0.4-2.0) mmol/L Calcium (8.5-10.1) mg/dl Magnesium (1.7-2.4) mg/dl Total Bilirubin (0.2-1.0) mg/dl AST (13-39) U/L ALT (7-52) U/L Alkaline Phosphatase (34-104) U/L Troponin I High Sens 45.6 H (0-20) pg/ml Total Protein (6.0-8.3) gm/dl Albumin (3.4-5.0) gm/dl Globulin (2.5-4.0) gm/dl Albumin/Globulin Ratio (0.9-2) Procalcitonin (0-0.5) ng/ml SARS-CoV-2, RNA, NAAT (NEGATIVE) 07/17/21 07/17/21 07/17/21 Range/Units 06:12 06:14 06:14 WBC (4.8-10.8) K/uL RBC (4.7-6.1) M/uL Hgb (14.0-18.0) g/dL Hct (42-52) % MCV (80-100) fL MCH (25-34) pg MCHC (32-36) g/dL RDW Std Deviation (36.4-46.3) fL RDW Coeff of Travon (11.5-14.5) % Plt Count (130-400) K/uL MPV (7.4-10.4) fL Immature Gran % (Auto) % Neut % (Auto) % Lymph % (Auto) % Meagher % (Auto) % Eos % (Auto) % Baso % (Auto) % Neut # (Auto) (1.4-6.5) K/uL Lymph # (Auto) (1.2-3.4) K/uL Meagher # (Auto) (0.11-0.59) K/uL Eos # (Auto) (0-0.5) K/uL Baso # (Auto) (0-0.2) K/uL Immature Gran # (Auto) (0.00-0.02) K/uL Anisocytosis PT (9.0-12.0) Seconds INR (0.9-1.1) APTT (21.0-31.0) Seconds PTT Ratio Sodium 112 L* (136-145) mmol/L Potassium 5.1 (3.5-5.1) mmol/L Chloride 81 L (98-107) mmol/L Carbon Dioxide 23 (21-32) mmol/L Anion Gap 8 (3-11) BUN 14 (6-23) mg/dl Creatinine 0.91 (0.6-1.4) mg/dl Est Cr Clr Drug Dosing 81.7 ml/min Est GFR ( Amer) 105.1 ml/min Est GFR (Non-Af Amer) 90.6 ml/min BUN/Creatinine Ratio 15.4 (10-20) Glucose 106 H (70-99(Fasting)) mg/dl Osmolality 243 L (280-300) mOsm/kg Lactate (0.4-2.0) mmol/L Calcium 8.6 (8.5-10.1) mg/dl Magnesium 1.5 L (1.7-2.4) mg/dl Total Bilirubin 0.5 (0.2-1.0) mg/dl AST 15 (13-39) U/L ALT 12 (7-52) U/L Alkaline Phosphatase 110 H (34-104) U/L Troponin I High Sens (0-20) pg/ml Total Protein 5.5 L (6.0-8.3) gm/dl Albumin 2.5 L (3.4-5.0) gm/dl Globulin 3.0 (2.5-4.0) gm/dl Albumin/Globulin Ratio 0.8 L (0.9-2) Procalcitonin 0.44 (0-0.5) ng/ml SARS-CoV-2, RNA, NAAT (NEGATIVE) 07/17/21 07/17/21 Range/Units 06:24 08:00 WBC (4.8-10.8) K/uL RBC (4.7-6.1) M/uL Hgb (14.0-18.0) g/dL Hct (42-52) % MCV (80-100) fL MCH (25-34) pg MCHC (32-36) g/dL RDW Std Deviation (36.4-46.3) fL RDW Coeff of Travon (11.5-14.5) % Plt Count (130-400) K/uL MPV (7.4-10.4) fL Immature Gran % (Auto) % Neut % (Auto) % Lymph % (Auto) % Meagher % (Auto) % Eos % (Auto) % Baso % (Auto) % Neut # (Auto) (1.4-6.5) K/uL Lymph # (Auto) (1.2-3.4) K/uL Meagher # (Auto) (0.11-0.59) K/uL Eos # (Auto) (0-0.5) K/uL Baso # (Auto) (0-0.2) K/uL Immature Gran # (Auto) (0.00-0.02) K/uL Anisocytosis PT (9.0-12.0) Seconds INR (0.9-1.1) APTT (21.0-31.0) Seconds PTT Ratio Sodium (136-145) mmol/L Potassium (3.5-5.1) mmol/L Chloride (98-107) mmol/L Carbon Dioxide (21-32) mmol/L Anion Gap (3-11) BUN (6-23) mg/dl Creatinine (0.6-1.4) mg/dl Est Cr Clr Drug Dosing ml/min Est GFR ( Amer) ml/min Est GFR (Non-Af Amer) ml/min BUN/Creatinine Ratio (10-20) Glucose (70-99(Fasting)) mg/dl Osmolality (280-300) mOsm/kg Lactate 2.7 H* (0.4-2.0) mmol/L Calcium (8.5-10.1) mg/dl Magnesium (1.7-2.4) mg/dl Total Bilirubin (0.2-1.0) mg/dl AST (13-39) U/L ALT (7-52) U/L Alkaline Phosphatase (34-104) U/L Troponin I High Sens (0-20) pg/ml Total Protein (6.0-8.3) gm/dl Albumin (3.4-5.0) gm/dl Globulin (2.5-4.0) gm/dl Albumin/Globulin Ratio (0.9-2) Procalcitonin (0-0.5) ng/ml SARS-CoV-2, RNA, NAAT NEGATIVE (NEGATIVE) Administered Medications Morphine Sulfate (Morphine Sulfate 5 Mg/0.25 Ml Udp) 5 - 10 mg PO Q3H PRN PRN Reason: Pain or Respiratory Distress Stop: 07/31/21 14:07 Last Admin: 07/17/21 19:44 Dose: 10 mg Documented by: [id number] Admin: 07/17/21 15:42 Dose: 10 mg Documented by: [id number] Discontinued Medications Fentanyl Citrate (Fentanyl Citrate 100 Mcg/2 Ml Vial) 50 mcg IV NOW STA Stop: 07/17/21 07:51 Last Admin: 07/17/21 08:04 Dose: 50 mcg Documented by: [id number] Fentanyl Citrate (Fentanyl Citrate 100 Mcg/2 Ml Vial) 50 mcg IV NOW STA Stop: 07/17/21 13:12 Last Admin: 07/17/21 13:17 Dose: 50 mcg Documented by: [id number] Furosemide (Furosemide 40 Mg/4 Ml Vial) 40 mg IV ONE ONE Stop: 07/17/21 14:31 Last Admin: 07/17/21 15:31 Dose: 40 mg Documented by: [id number] Sodium Chloride (Nss) 500 mls @ 999 mls/hr IV .Q31M ONE Stop: 07/17/21 05:57 Last Infusion: 07/17/21 06:28 Dose: 0 mls/hr Documented by: [id number] Admin: 07/17/21 06:14 Dose: 999 mls/hr Documented by: [id number] Ioversol (Optiray 320 100ml) 95 ml IV ONCE ONE Stop: 07/17/21 07:46 Last Admin: 07/17/21 07:46 Dose: 95 ml Documented by: [id number] Morphine Sulfate (Morphine Sulfate 5 Mg/0.25 Ml Udp) 5 mg PO NOW STA Stop: 07/17/21 12:05 Last Admin: 07/17/21 12:30 Dose: 5 mg Documented by: [id number] Discharge Plan Visit Data Chief Complaint: Shortness of Breath/Dyspnea ED Provider: Kelly Acevedo Discharge Problem: Hypoxia, Metastatic disease, Pulmonary edema, Acute hyponatremia Patient Disposition: Admitted As Inpatient Discharge Instructions Interventions: ED Discharge Assessment Last Done: 07/17/21 13:50 Discharge Problem: Metastatic disease Qualifiers: Area of secondary neoplastic involvement: other site Qualified Code(s): C79.89 - Secondary malignant neoplasm of other specified sites Pulmonary edema Qualifiers: Chronicity: acute Qualified Code(s): J81.0 - Acute pulmonary edema
[2021-07-17 06:30] LABS: Hematocrit (blood only) 27.8 % (42-52); Hemoglobin 8.7 g/dL (14.0-18.0); Mean Corpuscular Hemoglobin 24.4 pg (25-34); Mean Corpuscular Hgb Conc 31.3 g/dL (32-36); Mean Corpuscular Volume 77.9 fL (80-100); Mean Platelet Volume 9.2 fL (7.4-10.4); Platelet Count 309 K/uL (130-400); RDW Coefficient of Variation 21.8 % (11.5-14.5); RDW Standard Deviation 62.4 fL (36.4-46.3); Red Blood Count 3.57 M/uL (4.7-6.1); White Blood Count 18.14 K/uL (4.8-10.8)
[2021-07-17 06:37] LABS: Partial Thromboplastin Ratio 1.2; Partial Thromboplastin Time 32.2 Seconds (21.0-31.0); Prothrombin Time 10.8 Seconds (9.0-12.0)
[2021-07-17 06:51] LABS: Albumin Globulin Ratio 0.8 (0.9-2); Albumin Level 2.5 gm/dl (3.4-5.0); BUN Creatinine Ratio 15.4 (10-20); Bilirubin,Total 0.5 mg/dl (0.2-1.0); Calcium 8.6 mg/dl (8.5-10.1); Creatinine Clr Calc Pharmacy 81.7 ml/min; Est GFR (African American) 105.1 ml/min; Est GFR (Non-African American) 90.6 ml/min; Magnesium 1.5 mg/dl (1.7-2.4); Potassium 5.1 mmol/L (3.5-5.1); Total Protein 5.5 gm/dl (6.0-8.3)
[2021-07-17 07:11] LABS: Anisocytosis Present; Basophils # (auto) 0.02 K/uL (0-0.2); Basophils % (auto) 0.1 %; Immature Granulocytes # (auto) 0.99 K/uL (0.00-0.02); Immature Granulocytes % (auto) 5.5 %; Lymphocytes # (auto) 0.19 K/uL (1.2-3.4); Monocytes # (auto) 0.86 K/uL (0.11-0.59); Monocytes % (auto) 4.7 %; Neutrophils # (auto) 16.08 K/uL (1.4-6.5); Neutrophils % (auto) 88.7 %
[2021-07-17] MEDS ORDERED: OPTIRAY 320 100ml IV ONE (07:45)
[2021-07-17] MEDS ORDERED: fentaNYL citrate 100 MCG/2 ML VIAL IV STA ×2 (07:50→13:11)
--- NOTE | 2021-07-17 08:12 | XRay Report ---
XR chest 1V portable HISTORY: Dyspnea COMPARISON: Chest 06/07/2021. FINDINGS: There are low lung volumes. No pneumothorax. The heart is mildly enlarged. Moderate bilater al pleural effusions with moderate pulmonary edema. IMPRESSION: Moderate pulmonary edema with bilateral pleural effusions. ACT 112: Negative or not required by law. Electronically signed by: Flex Lo M.D. 07/17/2021 8:11 AM
--- NOTE | 2021-07-17 08:14 | XRay Report ---
KUB HISTORY: Abdominal distention. Dyspnea. COMPARISON: KUB 08/03/2016. FINDINGS: The bowel gas pattern is unremarkable. There are no dilated loops of small bowel to suggest an obstruction. No renal calculi. No ureteral calculi. No pneumoperitoneum or pneumatosis. Moderate bilateral pleural effusions and pulmonary edema are better appreciated on the same day chest x-ray. Of note, the pelvis is not included on the provided image. A few borderline dilated gas-filled loops of small bowel seen within the right side the abdomen. There is gas within the colon. This favors a m ild ileus. IMPRESSION: 1. Moderate bilateral pleural effusions. 2. Suspect a mild ileus. ACT 112: Negative or not required by law. Electronically signed by: Flex Lo M.D. 07/17/2021 8:13 AM
--- NOTE | 2021-07-17 08:30 | CT Scan Report ---
ABDOMEN AND PELVIS CT WITH IV CONTRAST CT DOSE: 1584.95 mGy.cm HISTORY: abd. distension multiple myeloma TECHNIQUE: Multiaxial CT images of the abdomen and pelvis were performed following the use of intrave nous contrast. A dose lowering technique was utilized adhering to the principles of ALARA. COMPARISON STUDY: Abdomen and pelvis CT 03/06/2010. FINDINGS: Large bilateral pleural effusions which are better present on the same day chest CT. No pne umoperitoneum. No pneumatosis. Multiple subcentimeter lytic lesions seen throughout the visualized os seous structures consistent with the patient's known history of multiple myeloma. There are few old, healed bilateral rib fractures. Severe body wall edema is noted. Small fat-containing bilateral ingui nal hernias. Heterogeneous opacification IVC and iliac veins is likely due to mixing of contrast. Bul ky necrotic lymphadenopathy centered at the periportal and retroperitoneal stations. Dominant peripor sergo lymph node measures 10 x 5 cm. This results in severe mass effect along the main portal vein with a possible small focus of tumor invasion into the portal vein best seen on image 157. The lymphadeno israel/mass extends into Morison's pouch and is contiguous with the undersurface of the right hepatic lobe suggesting serosal/hepatic involvement. There are few small nodular implants extending into the Gerota's fascia and abutting the right kidney. This is best seen on image 185. There is mass effect a long the pancreatic head from the bulky lymphadenopathy. The gallbladder is decompressed. The spleen is mildly enlarged. There is an indeterminate 8 mm hypodense lesion within the spleen on image 197. T here is trace perihepatic fluid. No hydronephrosis. Left-sided nephrolithiasis. Normal caliber abdomi nal aorta. There is right retrocrural lymphadenopathy. Small fat-containing bilateral inguinal hernia s. Small amount of ascites seen within the pelvis. No evidence for bowel obstruction. Mild thickening within the terminal ileum is likely chronic. There is mild bilateral external iliac lymphadenopathy. There are few punctate stones within the bladder. No bladder wall thickening. IMPRESSION: 1. Bulky lymphadenopathy seen within the abdomen as described above which extends into Morison's pouc h and likely invades into the undersurface of the right hepatic lobe. This also extends into the righ t Gerota's fascia and abuts the anterior surface of the right kidney. 2. This also results in severe mass effect along the main portal vein with a possible small focus of tumor invasion. 3. Multiple scattered lytic lesions seen throughout the visualized osseous structures consistent the patient's known history of multiple myeloma. 4. Large bilateral pleural effusions. 5. Retrocrural and pelvic lymphadenopathy. 6. Severe body wall edema. 7. Left-sided nephrolithiasis. ACT 112: Negative or not required by law. Electronically signed by: Flex Lo M.D. 07/17/2021 8:27 AM
--- NOTE | 2021-07-17 08:40 | CT Scan Report ---
CHEST CT WITH CONTRAST HISTORY: Acute shortness of breath sob TECHNIQUE: Multiaxial CT images of the chest were performed following the IV administration of 95 cc of Optiray. A dose lowering technique was utilized adhering to the principles of ALARA. COMPARISON: CT abdomen and pelvis of same day, chest radiograph of same day FINDINGS: Unremarkable thyroid. Left supraclavicular adenopathy measures up to 3.5 x 1.8 cm. Patholog ically enlarged lymph nodes adjacent to the esophagus measure up to 2.4 cm. Additional pathologic ret rocrural and bulky upper abdominal adenopathy. The heart is normal in size. Mural fibrofatty changes of the left ventricular apex. Extensive coronary artery calcifications. No thoracic aortic aneurysm. No pulmonary emboli. Large pleural effusions. Interstitial and alveolar pulmonary edema with compressive bibasilar atelect asis. Study is degraded by respiratory motion artifact. Mild generalized body wall edema. Innumerable lytic foci noted throughout the osseous structures. No definite acute pathologic fracture. IMPRESSION: 1. Pathologic supraclavicular, mediastinal, retrocrural and upper abdominal lymphadenopathy. 2. Multifocal lucent lesions compatible with patient's history of multiple myeloma. 3. Pulmonary edema with large pleural effusions and compressive bibasilar atelectasis. ACT 112: Negative or not required by law. Electronically signed by: Raffi Pizarro M.D. 07/17/2021 8:38 AM
--- NOTE | 2021-07-17 09:56 | History & Physical Report ---
Date of Service July 17, 2021 Assessment & Plan (1) Light chain myeloma: (2) Metastatic disease: (3) Comfort measures only status: (4) Hyponatremia: (5) Multiple sclerosis: (6) Elevated troponin: (7) Hypoxia: (8) Bilateral pleural effusion: Plan: This is a 61-year-old male who has significant past medical history of CAD with history of coronary stent to LAD in 2017, HLD, prediabetes, history of multiple sclerosis with quadriplegia and wheelchair-bound since 1996 and recent diagnosis of lambda light chain myeloma and monoclonal paraproteinemia who presents to ED secondary to shortness of breath and hypoxia x2 days. Patient presents to ED with hypoxia in setting of recently diagnosed light chain myeloma. Recently started chemotherapy; however due to declining status and worsening symptoms patient has opted to forego any further chemotherapy and port placement. Imaging in the ED reveals severe bulky lymphadenopathy seen within the abdomen extending into Morison's pouch and Gerota's fascia along with severe mass-effect along the main portal vein and possible small focus of tumor invasion. Imaging further reveals multiple scattered lytic lesions, retrocrural and pelvic lymphadenopathy, pathologic supraclavicular, mediastinal and upper abdominal lymphadenopathy. Large pleural effusions bilaterally with compressive atelectasis along with pulmonary edema and severe body wall edema is also noted. Extensive discussion was had with patient, and son at bedside. Patient overall has poor prognosis. Discussed case with patient's oncologist Dr. Dunham. Given extensive nature and progression of disease patient has opted for comfort measures with hopes to transition home with hospice. Admit to MedSurg Initiate comfort care measures Roxanol p.o. for pain/air hunger every 4 hours as needed Ativan 0.5 mg sublingual every 4 as needed for agitation Atropine drops 4 drops sublingual every 3 for secretions Discussed case with palliative CRISTÓBAL Chowdary, will hold on formal consult for now since transition in place Discussed case with pulmonology to review imaging to determine if palliative thoracentesis a possibility for symptom relief Pulm recommends trial of roxanol and IV lasix for now given invasive nature of thoraentesis D/C Labs, unncessary meds, vitals Discussed with CM who is in process of setting up hospice services Pt with significant hyponatremia, last Na was 118 07/13, therefore likely chronic Pt wishes for no further work up at this time, goal is comfort > 120 minutes was spent review chart, discussing with specialists and having extensive discussion with patient to discuss overall prognosis and plan of care. Pt and at bedside agree. Dispo: Med/Surg, comfort care DNR/DNI PCP: Rivera Castano Pt was seen and examined in collaboration with Dr. Quevedo, please see addendum History of Present Illness Chief Complaint: SOB x 2 days. Primary Care Provider: Shanthi Castano, DO This is a 61-year-old male who has significant past medical history of CAD with history of coronary stent to LAD in 2017, HLD, prediabetes, history of multiple sclerosis with quadriplegia and wheelchair-bound since 1996 and recent diagnosis of lambda light chain myeloma and monoclonal paraproteinemia who presents to ED secondary to shortness of breath and hypoxia x2 days. EMS was summoned to house today secondary to patient having difficulty breathing and O2 sats found to be in 80s. It responded with supplemental oxygen as well as nebulizer. Of sig nificance patient was recently hospitalized 06/07-06/12 secondary to hypercalcemia and ALPA. He was further found to be anemic. Further work-up revealed concern for multiple myeloma. He did receive Zometa and IV Venofer. He was an established with oncology Dr. Dunham. He was started on Xgeva and Velcade. He had difficulty tolerating chemo secondary to weakness, fatigue, poor appetite and nausea. He opted to forego chemotherapy last week and wishes to no longer undergo chemotherapy. and son are at bedside and state patient has had a significant decline over the past 2 months. He has had increased abdominal distention, lower extremity edema, shortness of breath and poor appetite. He denies any fever, chills, sweats, lightheadedness, dizziness, chest pain, hemoptysis, dysuria, increased urgency or frequency with urination, melena or hematochezia. Patient states for the last several weeks he has had significant abdominal pain. He received IV fentanyl in ED and states, "this is the first time in the last several weeks I had relief from this abdominal pain." In ED patient made hemodynamically stable although did require supplemental oxygen. CT abdomen pelvis was performed which revealed bulky lymphadenopathy which extends into Morison's pouch and likely invades undersurface of right hepatic lobe. This also extended into the right Gerota's fascia and abuts the anterior surface of the right kidney. Mass-effect is also noted along the main portal vein with small focus of tumor invasion. Multiple scattered lytic lesions are seen throughout the osseous structures. He was found to have large bilateral pleural effusions, retrocrural and pelvic lymphadenopathy and severe body wall edema. Chest CT also noted pathologic supraclavicular mediastinal and upper lymphadenopathy. Pulmonary edema with large pleural effusions also noted. He had significant abnormalities in lab work including leukocytosis 18.1 4K, H&H 8.7 and 27.8, sodium 112, lactate 2.7, troponin 45.6 and procalcitonin .44. Initially he was started on IV fluid but this was discontinued after he was found to have pulmonary edema. Allergies Allergy/AdvReac Type Severity Reaction Status Date / Time glatiramer (copolymer 1) Allergy Severe Anaphylaxis Verified 07/17/21 06:28 [From [employer]] Home Medications Medication Instructions Recorded Confirmed Type acetaminophen 500 mg capsule 500 mg PO Q6H PRN 03/20/19 07/17/21 History atorvastatin 40 mg tablet 40 mg PO HS 03/20/19 07/17/21 History levothyroxine 88 mcg tablet 88 mcg PO QAM tab 03/20/19 07/17/21 History Wheelchair (Powered) #2 ea 11/23/20 07/17/21 Rx oxybutynin chloride 10 mg 10 mg PO HS 05/30/21 07/17/21 History tablet,extended release 24 hr tizanidine 4 mg tablet 2 mg PO Q4 PRN 05/30/21 07/17/21 History clonazepam 0.5 mg tablet 0.25 mg PO UD PRN 06/07/21 07/17/21 History metoprolol succinate 50 mg 75 mg PO HS 06/07/21 07/17/21 History tablet,extended release 24 hr nitroglycerin 0.4 mg sublingual 0.4 mg SUBLINGUAL UD PRN 06/07/21 07/17/21 History tablet omeprazole 40 mg capsule,delayed 40 mg PO QAM 06/07/21 07/17/21 History release acyclovir 400 mg tablet 400 mg PO BID 07/17/21 07/17/21 History bortezomib 3.5 mg injection powder 0 mg SUBCUT WK 07/17/21 07/17/21 History for solution (Velcade) dexamethasone 4 mg tablet 40 mg PO WK 07/17/21 07/17/21 History hydrocortisone 2.5 % topical 1 applic TOPICAL DAILY PRN 07/17/21 07/17/21 History ointment Past Med/Surg History Medical History (Updated 07/17/21 @ 10:29 by Margaux Monteiro PA-C) Acute hyponatremia ALPA (acute kidney injury) History of kidney stones Hypercalcemia Hypothyroidism Insomnia Multiple sclerosis wheelchair bound Muscle hypertonicity On anticoagulant therapy on brilinta Quadriplegia states can move very little, also states he can control his bladder/bowel Squamous cell carcinoma of face STEMI (ST elevation myocardial infarction) (~02/2016) follows with Dr. Ahuja Surgical History History of cardiac cath (~02/2016) with 1 stent placed History of carpal tunnel repair History of colonoscopy History of heart artery stent 1 stent History of Mohs surgery for squamous cell carcinoma of skin History of tonsillectomy History of wisdom tooth extraction S/P appendectomy S/P hernia repair as an Family History Father Prostate cancer Family/Other Cancer Heart disease Hypertension Nephrolithiasis Social History Smoking Status: Former smoker Second Hand Exposure: No; Hx Alcohol Use: No Hx Substance Use: No Preferred Language: Frisian Communication Ability: Effective Superintendent Mechanical Required: No Beliefs That Will Affect Care: None marital status: Current Living Situation: Spouse Current Living Situation Comment: and child. current occupational status: retired How many Children do You have: 1 Other Information That Helps Us Care for You: No Feels Safe at Home: Yes Safety Concerns: Feels Safe At This Time Assistive Devices: Mechanical Lift and Wheelchair Review of Systems Review of Systems: All systems reviewed & are unremarkable except as noted in HPI & below Physical Exam Physical Exam: Constitutional: Pale, acutely ill, male,vitals as above, dyspnea with conversation, sitting up in bed, answers questions appropriately Head: Normocephalic, Atraumatic Eyes: PERRL, conjunctivae normal, anicteric sclerae ENMT: external ear and nose normal, oropharynx normal dry mucous membranes Neck: trachea midline, no thyromegaly normal visual inspection Respiratory: normal respiratory effort, diminished breath sounds throughout, no wheeze, rales, rhonchi. no accessory muscle use Cardiovascular: RRR, no murmur, trace bilateral pedal edema Vessels: no JVD or carotid bruit Chest: normal inspection of chest Abdomen: normal bowel sounds, soft, nontender, no hepatosplenomegaly Musculoskeletal: no cyanosis or clubbing, quadriplegic Skin: no rashes, warm and dry normal turgor Neurologic: PERRL, EOMI, accommodation nl, no face palsy, no dysarthria CN's II-XI intact bilaterally and moves all extremities Psychiatric: A+Ox3, euthymic affect Lymphatic: no cervical or axillary lymphadenopathy : deferred Results & Data Results & Data ([facility]) Vital Signs (Past 12 Hours) Vital Signs Temp Pulse Pulse Resp BP BP Pulse Ox 07/17/21 09:00 89 13 121/75 95 07/17/21 08:30 85 12 95 07/17/21 08:00 90 14 137/88 93 07/17/21 07:43 95 H 15 96 07/17/21 07:00 82 15 97 07/17/21 06:54 84 20 99 07/17/21 06:16 80 19 117/74 96 07/17/21 05:35 80 16 96 07/17/21 05:27 36.4 C L 79 17 116/72 97 07/17/21 05:22 79 18 116/72 97 Diagnostic Findings Chest X-Ray 07/17/21 05:25 XR chest 1V portable HISTORY: Dyspnea COMPARISON: Chest 06/07/2021. FINDINGS: There are low lung volumes. No pneumothorax. The heart is mildly enlarged. Moderate bilateral pleural effusions with moderate pulmonary edema. IMPRESSION: Moderate pulmonary edema with bilateral pleural effusions. ACT 112: Negative or not required by law. Electronically signed by: Flex Lo M.D. 07/17/2021 8:11 AM KUB X-Ray 07/17/21 05:25 KUB HISTORY: Abdominal distention. Dyspnea. COMPARISON: KUB 08/03/2016. FINDINGS: The bowel gas pattern is unremarkable. There are no dilated loops of small bowel to suggest an obstruction. No renal calculi. No ureteral calculi. No pneumoperitoneum or pneumatosis. Moderate bilateral pleural effusions and pulmonary edema are better appreciated on the same day chest x-ray. Of note, the pelvis is not included on the provided image. A few borderline dilated gas- filled loops of small bowel seen within the right side the abdomen. There is gas within the colon. This favors a mild ileus. IMPRESSION: 1. Moderate bilateral pleural effusions. 2. Suspect a mild ileus. ACT 112: Negative or not required by law. Electronically signed by: Flex Lo M.D. 07/17/2021 8:13 AM Abdomen/Pelvis CT 07/17/21 06:[address] WITH IV CONTRAST CT DOSE: 1584.95 mGy.cm HISTORY: abd. distension multiple myeloma TECHNIQUE: Multiaxial CT images of the abdomen and pelvis were performed following the use of intravenous contrast. A dose lowering technique was utilized adhering to the principles of ALARA. COMPARISON STUDY: Abdomen and pelvis CT 03/06/2010. FINDINGS: Large bilateral pleural effusions which are better present on the same day chest CT. No pneumoperitoneum. No pneumatosis. Multiple subcentimeter lytic lesions seen throughout the visualized osseous structures consistent with the patient's known history of multiple myeloma. There are few old, healed bilateral rib fractures. Severe body wall edema is noted. Small fat-containing bilateral inguinal hernias. Heterogeneous opacification IVC and iliac veins is likely due to mixing of contrast. Bulky necrotic lymphadenopathy centered at the periportal and retroperitoneal stations. Dominant periportal lymph node measures 10 x 5 cm. This results in severe mass effect along the main portal vein with a possible small focus of tumor invasion into the portal vein best seen on image 157. The lymphadenopathy/mass extends into Morison's pouch and is contiguous with the undersurface of the right hepatic lobe suggesting serosal/hepatic involvement. There are few small nodular implants extending into the Gerota's fascia and abutting the right kidney. This is best seen on image 185. There is mass effect along the pancreatic head from the bulky lymphadenopathy. The gallbladder is decompressed. The spleen is mildly enlarged. There is an indeterminate 8 mm hypodense lesion within the spleen on image 197. There is trace perihepatic fluid. No hydronephrosis. Left-sided nephrolithiasis. Normal caliber abdominal aorta. There is right retrocrural lymphadenopathy. Small fat-containing b ilateral inguinal hernias. Small amount of ascites seen within the pelvis. No evidence for bowel obstruction. Mild thickening within the terminal ileum is likely chronic. There is mild bilateral external iliac lymphadenopathy. There are few punctate stones within the bladder. No bladder wall thickening. IMPRESSION: 1. Bulky lymphadenopathy seen within the abdomen as described above which exte nds into Morison's pouch and likely invades into the undersurface of the right hepatic lobe. This also extends into the right Gerota's fascia and abuts the anterior surface of the right kidney. 2. This also results in severe mass effect along the main portal vein with a possible small focus of tumor invasion. 3. Multiple scattered lytic lesions seen throughout the visualized osseous structures consistent the patient's known history of multiple myeloma. 4. Large bilateral pleural effusions. 5. Retrocrural and pelvic lymphadenopathy. 6. Severe body wall edema. 7. Left-sided nephrolithiasis. ACT 112: Negative or not required by law. Electronically signed by: Flex Lo M.D. 07/17/2021 8:[address] 07/17/21 06:[address] WITH CONTRAST HISTORY: Acute shortness of breath sob TECHNIQUE: Multiaxial CT images of the chest were performed following the IV administration of 95 cc of Optiray. A dose lowering technique was utilized adhering to the principles of ALARA. COMPARISON: CT abdomen and pelvis of same day, chest radiograph of same day FINDINGS: Unremarkable thyroid. Left supraclavicular adenopathy measures up to 3.5 x 1.8 cm. Pathologically enlarged lymph nodes adjacent to the esophagus measure up to 2.4 cm. Additional pathologic retrocrural and bulky upper abdominal adenopathy. The heart is normal in size. Mural fibrofatty changes of the left ventricular apex. Extensive coronary artery calcifications. No thoracic aortic aneurysm. No pulmonary emboli. Large pleural effusions. Interstitial and alveolar pulmonary edema with compressive bibasilar atelectasis. Study is degraded by respiratory motion artifact. Mild generalized body wall edema. Innumerable lytic foci noted throughout the osseous structures. No definite acute pathologic fracture. IMPRESSION: 1. Pathologic supraclavicular, mediastinal, retrocrural and upper abdominal lymphadenopathy. 2. Multifocal lucent lesions compatible with patient's history of multiple myeloma. 3. Pulmonary edema with large pleural effusions and compressive bibasilar atelectasis. ACT 112: Negative or not required by law. Electronically signed by: Raffi Pizarro M.D. 07/17/2021 8:38 AM Medications Administered Medication List Discontinued Medications Fentanyl Citrate (Fentanyl Citrate 100 Mcg/2 Ml Vial) 50 mcg IV NOW STA Stop: 07/17/21 07:51 Last Admin: 07/17/21 08:04 Dose: 50 mcg Documented by: [id number] Sodium Chloride (Nss) 500 mls @ 999 mls/hr IV .Q31M ONE Stop: 07/17/21 05:57 Last Infusion: 07/17/21 06:28 Dose: 0 mls/hr Documented by: [id number] Admin: 07/17/21 06:14 Dose: 999 mls/hr Documented by: [id number] Ioversol (Optiray 320 100ml) 95 ml IV ONCE ONE Stop: 07/17/21 07:46 Last Admin: 07/17/21 07:46 Dose: 95 ml Documented by: [id number] ECG Rate (beats per minute): 78 Rhythm: normal sinus COVID-19 Results Results COVID-19 Adm Lab Results: RBC 3.57 M/uL (4.7-6.1) L 07/17/21 WBC 18.14 K/uL (4.8-10.8) H 07/17/21 Hgb 8.7 g/dL (14.0-18.0) L 07/17/21 Hct 27.8 % (42-52) L 07/17/21 Plt Count 309 K/uL (130-400) 07/17/21 Neutrophils (%) (Auto) 88.7 % 07/17/21 Lymphocytes (%) (Auto) 1.0 % 07/17/21 Monocytes # (Auto) 0.86 K/uL (0.11-0.59) H 07/17/21 Eosinophils # (Auto) 0.00 K/uL (0-0.5) 07/17/21 Immature Granulocyte % (Auto) 5.5 % 07/17/21 Neutrophils # (Auto) 16.08 K/uL (1.4-6.5) H 07/17/21 Lymphocytes # (Auto) 0.19 K/uL (1.2-3.4) L 07/17/21 Monocytes # (Auto) 0.86 K/uL (0.11-0.59) H 07/17/21 Eosinophils # (Auto) 0.00 K/uL (0-0.5) 07/17/21 Basophils # (Auto) 0.02 K/uL (0-0.2) 07/17/21 Immature Granulocyte # (Auto) 0.99 K/uL (0.00-0.02) H 07/17/21 Anisocytosis Present 07/17/21 Na 112 mmol/L (136-145) L* 07/17/21 K 5.1 mmol/L (3.5-5.1) 07/17/21 Cl 81 mmol/L (98-107) L 07/17/21 CO2 23 mmol/L (21-32) 07/17/21 Anion Gap 8 (3-11) 07/17/21 BUN 14 mg/dl (6-23) 07/17/21 Creatinine 0.91 mg/dl (0.6-1.4) 07/17/21 BUN/Creatinine Ratio 15.4 (10-20) 07/17/21 Glucose Level 106 mg/dl (70-99(Fasting)) H 07/17/21 Ca 8.6 mg/dl (8.5-10.1) 07/17/21 Total Bilirubin 0.5 mg/dl (0.2-1.0) 07/17/21 AST/SGOT 15 U/L (13-39) 07/17/21 ALT/SGPT 12 U/L (7-52) 07/17/21 Alkaline Phosphatase 110 U/L (34-104) H 07/17/21 Total Protein 5.5 gm/dl (6.0-8.3) L 07/17/21 Albumin 2.5 gm/dl (3.4-5.0) L 07/17/21 Globulin 3.0 gm/dl (2.5-4.0) 07/17/21 Albumin/Globulin Ratio 0.8 (0.9-2) L 07/17/21 Procalcitonin 0.44 ng/ml (0-0.5) 07/17/21 PTT 32.2 Seconds (21.0-31.0) H 07/17/21 INR 1.0 (0.9-1.1) 07/17/21 SARS-CoV-2, RNA, NAAT NEGATIVE (NEGATIVE) 07/17/[address] 07/17/21 Chest X-Ray 07/17/21 Code Status & VTE Plan Code Status DNR/DNI VTE Prophylaxis Plan VTE Prophylaxis will be ordered: No Supervising Physician Co-Signing Physician Notes Patient was seen and examined independently at bedside in presence of family. Reviewed chart. Discussed case with Margaux PARKER and agree with her documentation above (See the above note for details). In summary, this is a 61 year old male with h/o MS, wheelchair bound since 1996 and recent diagnosis of lambda light chain myeloma recently started on chemo presented to the ED with shortness of breath and hypoxia for [address] A/P showed 1. Bulky lymphadenopathy seen within the abdomen as described above which extends into Morison's pouch and likely invades into the undersurface of the right hepatic lobe. This also extends into the right Gerota's fascia and abuts the anterior surface of the right kidney. 2. This also results in severe mass effect along the main portal vein with a possible small focus of tumor invasion. 3. Multiple scattered lytic lesions seen throughout the visualized osseous structures consistent the patient's known history of multiple myeloma. 4. Large bilateral pleural effusions. 5. Retrocrural and pelvic lymphadenopathy. 6. Severe body w all edema. CT chest showed 1. Pathologic supraclavicular, mediastinal, retrocrural and upper abdominal lymphadenopathy. 2. Multifocal lucent lesions compatible with patient's history of multiple myeloma. 3. Pulmonary edema with large pleural effusions and compressive bibasilar atelectasis. Na 112, WBC 18, Hb 8.7, lactate 2.7, trop 45, beta 2 microglobulin 6.8, procal 0.44, calcium 8.6. Given his declining status, poor prognosis and his labs and imaging, Margaux had extensive discussion with patient and family regarding goals of care and they opted for comfort measures and return home on hospice. They confirmed it during my encounter. Patient states fentanyl helped with the pain but roxanol not so much. He is on 2 L NC and saturating well. His imaging reviewed and showed bilateral pleural effusion with pulmonary edema. Sodium low but hypervolemic. He is awake, alert, mentating well, looked comfortable but sick looking. Has LE edema. Chest with fair breath sounds anteriorly decreased at bases. Pulm recommended trial of roxanol and lasix rather than thoracentesis at this point. Discussed with family that if in future he gets short of breath and desires the thoracentesis, pleurX might be considered. Hospice has been consulted for evaluation. Rest as per note above.
[2021-07-17] MEDS ORDERED: MoRPHine SULFATE 5 MG/0.25 ML UDP PO STA (12:04)
[2021-07-17] MEDS ORDERED: LORazepam 2 MG/1 ML VIAL IV PRN (14:08)
[2021-07-17] MEDS ORDERED: MoRPHine SULFATE 5 MG/0.25 ML UDP PO PRN (14:08)
[2021-07-17] MEDS ORDERED: LORazepam 0.5 MG TAB PO PRN (14:08)
[2021-07-17] MEDS ORDERED: ONDANSETRON 4 MG OD TAB SL PRN (14:08)
[2021-07-17] MEDS ORDERED: GLYCOPYRROLATE 0.2 MG/ML VIAL IV PRN (14:08)
[2021-07-17] MEDS ORDERED: MAGNESIUM HYDROXIDE SUSP 30 ML UDC PO PRN (14:08)
[2021-07-17] MEDS ORDERED: ALUMINUM/MAGNESIUM SUSP 30 ML UDC PO PRN (14:08)
[2021-07-17] MEDS ORDERED: ATROPINE SULFATE 1% OP SOLN 5 ML BTL SL PRN (14:08)
[2021-07-17] MEDS ORDERED: ACETAMINOPHEN 325 MG TAB PO PRN (14:08)
[2021-07-17] MEDS ORDERED: ONDANSETRON INJ 2 MG/ML 2 ML VIAL IV PRN (14:08)
[2021-07-17] MEDS ORDERED: FUROSEMIDE 40 MG/4 ML VIAL IV ONE (14:30)
[2021-07-17] MEDS: MoRPHine SULFATE 5 MG/0.25 ML UDP PO PRN ×2 (15:42→19:44)
[2021-07-17] MEDS ORDERED: METOPROLOL SUCC 25MG EXT REL TAB PO SCH (21:00)
[2021-07-17] MEDS ORDERED: tiZANidine HCL 4 MG TABLET PO PRN (21:18)
[2021-07-17] MEDS ORDERED: clonazePAM 0.25 MG TAB PO PRN (21:18)
[2021-07-18] MEDS: MoRPHine SULFATE 5 MG/0.25 ML UDP PO PRN (06:25)
[2021-07-18] MEDS ORDERED: ALBUT/IPRATROP 3MG/0.5MG NEB 3 ML VIAL NEB PRN (06:28)
[2021-07-18] MEDS ORDERED: LEVOTHYROXINE SODIUM 88 MCG TABLET PO SCH (06:30)
[2021-07-18] MEDS ORDERED: MoRPHine SULFATE 5 MG/0.25 ML UDP PO PRN (10:17)
[2021-07-18] MEDS ORDERED: MoRPHine SULFATE 10 MG/0.5 ML UDP PO PRN (10:18)
[2021-07-18] MEDS ORDERED: FUROSEMIDE 40 MG/4 ML VIAL IV ONE (10:30)
--- NOTE | 2021-07-18 12:01 | Discharge Summary ---
Date of Service July 18, 2021 Admission HPI Per Admitting Provider This is a 61-year-old male who has significant past medical history of CAD with history of coronary stent to LAD in 2017, HLD, prediabetes, history of multiple sclerosis with quadriplegia and wheelchair-bound since 1996 and recent diagnosis of lambda light chain myeloma and monoclonal paraproteinemia who presents to ED secondary to shortness of breath and hypoxia x2 days. EMS was summoned to house today secondary to patient having difficulty breathing and O2 sats found to be in 80s. It responded with supplemental oxygen as well as nebulizer. Of significance patient was recently hospitalized 06/07-06/12 secondary to hypercalcemia and ALPA. He was further found to be anemic. Further work-up revealed concern for multiple myeloma. He did receive Zometa and IV Venofer. He was an established with oncology Dr. Dunham. He was started on Xgeva and Velcade. He had difficulty tolerating chemo secondary to weakness, fatigue, poor appetite and nausea. He opted to forego chemotherapy last week and wishes to no longer undergo chemotherapy. and son are at bedside and state patient has had a significant decline over the past 2 months. He has had increased abdominal distention, lower extremity edema, shortness of breath and poor appetite. He denies any fever, chills, sweats, lightheadedness, dizziness, chest pain, hemoptysis, dysuria, increased urgency or frequency with urination, melena or hematochezia. Patient states for the last several weeks he has had significant abdominal pain. He received IV fentanyl in ED and states, "this is the first time in the last several weeks I had relief from this abdominal pain." In ED patient made hemodynamically stable although did require supplemental oxygen. CT abdomen pelvis was performed which revealed bulky lymphadenopathy which extends into Morison's pouch and likely invades undersurface of right hepatic lobe. This also extended into the right Gerota's fascia and abuts the anterior surface of the right kidney. Mass-effect is also noted along the main portal vein with small focus of tumor invasion. Multiple scattered lytic lesions are seen throughout the osseous structures. He was found to have large bilateral pleural effusions, retrocrural and pelvic lymphadenopathy and severe body wall edema. Chest CT also noted pathologic supraclavicular mediastinal and upper lymphadenopathy. Pulmonary edema with large pleural effusions also noted. He had significant abnormalities in lab work including leukocytosis 18.1 4K, H&H 8.7 and 27.8, sodium 112, lactate 2.7, troponin 45.6 and procalcitonin .44. Initially he was started on IV fluid but this was discontinued after he was found to have pulmonary edema. Admission Exam Per Admitting Provider Constitutional: Pale, acutely ill, male,vitals as above, dyspnea with conversation, sitting up in bed, answers questions appropriately Head: Normocephalic, Atraumatic Eyes: PERRL, conjunctivae normal, anicteric sclerae ENMT: external ear and nose normal, oropharynx normal dry mucous membranes Neck: trachea midline, no thyromegaly normal visual inspection Respiratory: normal respiratory effort, diminished breath sounds throughout, no wheeze, rales, rhonchi. no accessory muscle use Cardiovascular: RRR, no murmur, trace bilateral pedal edema Vessels: no JVD or carotid bruit Chest: normal inspection of chest Abdomen: normal bowel sounds, soft, nontender, no hepatosplenomegaly Musculoskeletal: no cyanosis or clubbing, quadriplegic Skin: no rashes, warm and dry normal turgor Neurologic: PERRL, EOMI, accommodation nl, no face palsy, no dysarthria CN's II-XI intact bilaterally and moves all extremities Psychiatric: A+Ox3, euthymic affect Lymphatic: no cervical or axillary lymphadenopathy : deferred Principal Diagnosis Dyspnea and hypoxia due to pulmonary edema and pleural effusion in setting of MM with metastatic disease Discharge Exam General: Sick looking, Lying comfortably in bed, not in acute distress, on NC HEENT: EOMI, LOLA, MMM Chest:Fair breath sounds anteriorly CVS: Regular rate and rhythm, normal heart sounds, no murmur Abdomen: Soft, non tender, not distended, normal bowel sounds Neuro: Awake, alert, oriented, conversing well, non focal Extremities: No cyanosis, clubbing or edema Discharge Data Allergies Allergy/AdvReac Type Severity Reaction Status Date / Time glatiramer (copolymer 1) Allergy Severe Anaphylaxis Verified 07/17/21 06:28 [From Copaxone] Consultations 07/17/21 08:49 ED Decision to Admit Stat Ordered Studies 07/17/21 06:25 CT abd pelvis IV con only Stat CT chest diagnostic w con Stat Hospital Course (1) Comfort measures only status: (2) Light chain myeloma: (3) Metastatic disease: (4) Hyponatremia: (5) Multiple sclerosis: (6) Elevated troponin: (7) Hypoxia: (8) Bilateral pleural effusion: This is a 61-year-old male who has significant past medical history of CAD with history of coronary stent to LAD in 2017, HLD, prediabetes, history of multiple sclerosis and wheelchair-bound since 1996 and recent diagnosis of lambda light chain myeloma and monoclonal paraproteinemia who presents to ED secondary to shortness of breath and hypoxia x2 days. CT A/P showed 1. Bulky lymphadenopathy seen within the abdomen as described above which extends into Morison's pouch and likely invades into the undersurface of the right hepatic lobe. This also extends into the right Gerota's fascia and abuts the anterior surface of the right kidney. 2. This also results in severe mass effect along the main portal vein with a possible small focus of tumor invasion. 3. Multiple scattered lytic lesions seen throughout the visualized osseous structures consistent the patient's known history of multiple myeloma. 4. Large bilateral pleural effusions. 5. Retrocrural and pelvic lymphadenopathy. 6. Severe body wall edema. CT chest showed 1. Pathologic supraclavicular, mediastinal, retrocrural and upper abdominal lymphadenopathy. 2. Multifocal lucent lesions compatible with patient's history of multiple myeloma. 3. Pulmonary edema with large pleural effusions and compressive bibasilar atelectasis. Na 112, WBC 18, Hb 8.7, lactate 2.7, trop 45, beta 2 microglobulin 6.8, procal 0.44, calcium 8.6. Given his declining status, poor prognosis and his labs and imaging, extensive discussion was held with patient and family regarding goals of care. He opted for comfort measure only status and is going home on home hospice today. Discussed with pulmonology regarding thoracentesis- they recommended trial of roxanol and lasix rather than thoracentesis at this point. Discussed with family that if in future he gets short of breath and desires the thoracentesis, pleurX might be considered and follow up with interventional radiology for same. Lasix helped him and he requested more today. He is being discharged on lasix for comfort. Also increased dose of roxanol helped and is being discharged on same. Hospice will meet the patient at home this evening. Also has home oxygen. Transportation arranged by CM. Met with patient and at bedside and answered all the questions. Total Time Total Time Spent Total Time Spent (In Minutes): 35 Discharge Plan Discharge Items Patient Disposition: Hospice - Home Reason For Visit: SOB Discharge Diagnosis: Shortness of breath in setting of pleural effusion, pulmonary edema and diffuse metastatic disease/MM Activity: Resume your previous activity Non-emergency contact: Primary Care Provider Call non-emergency contact if: you have any medication questions, your symptoms worsen and your pain is concerning for you Follow-up/Referrals: Shanthi Castano, [Primary Care Provider] - Diet: Regular Addtl Attending Provider Instructions: You have opted for home hospice which has been arranged We have discharged you on morphine and lasix If in future, you decide for PleurX to help with the fluids around the lungs, please follow up with the interventional radiology doctors. Pending Studies at Discharge: No Stand-Alone Forms: My [facility] Re[facility] Medical Medications and DC Order Prescriptions: New furosemide [Lasix] 40 mg tablet 40 mg PO DAILY Qty: 30 RF: 0 morphine concentrate 100 mg/5 mL (20 mg/mL) solution 5 - 10 mg PO Q3H PRN (Reason: for pain or air hunger) Qty: 20 RF: 0 Continued (DME) Wheelchair (Powered) Device See Rx Instructions .ROUTE .MEDSUPPLY Qty: 2 RF: 0 acetaminophen 500 mg capsule 500 mg PO Q6H PRN (Reason: Pain) RF: 0 atorvastatin 40 mg tablet 40 mg PO HS RF: 0 levothyroxine 88 mcg tablet 88 mcg PO QAM RF: 0 metoprolol succinate 50 mg tablet extended release 24 hr 75 mg PO HS RF: 0 omeprazole 40 mg capsule,delayed release(DR/EC) 40 mg PO QAM RF: 0 nitroglycerin 0.4 mg tablet, sublingual 0.4 mg sublingual UD PRN (Reason: Chest Pain) RF: 0 clonazepam 0.5 mg tablet 0.25 mg PO UD PRN (Reason: spasms) RF: 0 acyclovir 400 mg tablet 400 mg PO BID RF: 0 dexamethasone 4 mg tablet 40 mg PO WK RF: 0 hydrocortisone 2.5 % ointment 1 applic TOPICAL DAILY PRN (Reason: Inflammation) RF: 0 Velcade 3.5 mg Recon Soln 0 mg subcut WK RF: 0 oxybutynin chloride 10 mg tablet extended release 24hr 10 mg PO HS RF: 0 tizanidine 4 mg tablet 2 mg PO Q4 PRN (Reason: Muscle Spasm) RF: 0 Discharge Orders: Discharge Order (Routine); Ordered 07/18/21 Ordered By: Misael Quevedo Admission Data Admit Date/Time: 07/17/21 09:41 Attending Provider: Misael Quevedo Admit Provider: Misael Quevedo Primary Care Provider: Shanthi Castano Other Providers: Misael Quevedo
--- NOTE | 2021-07-19 13:37 | Electrocardiogram Report ---
Test Reason : Blood Pressure : / mmHG Vent. Rate : 078 BPM Atrial Rate : 078 BPM P-R Int : 206 ms QRS Dur : 094 ms QT Int : 388 ms P-R-T Axes : 036 017 077 degrees QTc Int : 442 ms Poor data quality, interpretation may be adversely affected Normal sinus rhythm Septal infarct , age undetermined Abnormal ECG When compared with ECG of 07-JUN-2021 19:12, HR has decreased Septal infarct is now Present Confirmed by Colt Garcia ([id number]) on 07/19/2021 1:36:44 PM Referred By: REFERRED SELF Confirmed By:Colt Garcia
== END 2021-07-18 14:32 | disposition hospice, home (50) ==
LOC: ED 05:03 → INTOOBSV 09:41 → 3W 09:41

== ENCOUNTER 2021-07-18 21:57 | Inpatient (IN) ==
[2021-07-18] MEDS ORDERED: fentaNYL citrate 100 MCG/2 ML VIAL IV STA (23:08)
[2021-07-18] MEDS ORDERED: fentaNYL 50 MCG/HR TDSY TD STA (23:10)
[2021-07-19] MEDS ORDERED: CHECK fentaNYL PATCH PLACEMENT SCH
--- NOTE | 2021-07-19 00:53 | Emergency Department Note ---
Impression & Plan Need for comfort care, Uncontrolled pain, Multiple sclerosis, Multiple myeloma, Quadriplegia ED Provider Note CHIEF COMPLAINT: Uncontrolled pain, hospice care HISTORY OF PRESENT ILLNESS: This 61-year-old male patient presents to the emergency department with complaints of uncontrolled pain, primarily in the abdomen. The patient has a history of multiple myeloma and multiple sclerosis. He is a quadriplegic. Patient was discharged earlier today from comfort care at our facility to hospice [facility]. He has been receiving oral morphine without any adequate pain control. Patient was noted to be in significant pain and hypoxic upon EMS arrival tonight. He was placed on nonrebreather with improvement. Patient states it is too hard to be at home and too uncomfortable. He is requesting to be admitted with comfort measures in place. He did state that the fentanyl administered in the hospital worked but the morphine did not seem to work for his pain. REVIEW OF SYSTEMS: A review of systems was performed with positives and pertinent negatives listed in the history of present illness. 10 systems were reviewed and are otherwise negative. ALLERGIES: see below MEDICATIONS: see below PMH: see below SOCIAL HISTORY: see below DDx: Infection, dehydration, metabolic abnormality, hypo/hyperglycemia, electrolyte disturbance, anemia, hypoxia, cardiac sources, intracerebral event, toxicologic, neurologic, as well as other pathologies. PHYSICAL EXAM: Vital signs reviewed. General: Chronically ill-appearing 61-year-old male, in some discomfort HEENT: No scleral icterus, PERRLA, neck supple. Dry MM Cardiovascular: tachycardia, regular, no extra sounds. Pulmonary: Coarse breath sounds to auscultation bilaterally, slightly increased work of breathing. Abdomen: distended, + tender, diminished bowel sounds. Musculoskeletal: Atraumatic, no peripheral edema. Neurologic: Patient awake, unable to comprehend speech. Skin: Warm, dry, no rash EMERGENCY DEPARTMENT COURSE/MDM: This patient was evaluated and appeared to be in some discomfort. Physical examination reveals a chronically ill-appearing male who is tachycardic with increased work of breathing. Patient was given 50 mg of IV fentanyl and a 50 mcg/h fentanyl patch was placed. Patient had significant pain control at this dose and was able to sleep. He was on nasal cannula oxygen at 6 L saturating in the mid 90s. Patient was given 0.5 mg of IV Ativan for minimal agitation. Case was discussed with the hospitalist, Dr. Buchanan who will evaluate the patient for admission and comfort care measures. Patient and family are aware of this plan and agreed. MONITORING: An order for cardiac monitoring was placed and the patient is noted to be in a sinus tachycardia at 104 beats per minute. DISPOSITION:Admit Past Med/Surg History Medical History Acute hyponatremia ALPA (acute kidney injury) History of kidney stones Hypercalcemia Hypothyroidism Insomnia Multiple sclerosis wheelchair bound Muscle hypertonicity On anticoagulant therapy on brilinta Quadriplegia states can move very little, also states he can control his bladder/bowel Squamous cell carcinoma of face STEMI (ST elevation myocardial infarction) (~02/2016) follows with Dr. Ahuja Surgical History History of cardiac cath (~02/2016) with 1 stent placed History of carpal tunnel repair History of colonoscopy History of heart artery stent 1 stent History of Mohs surgery for squamous cell carcinoma of skin History of tonsillectomy History of wisdom tooth extraction S/P appendectomy S/P hernia repair as an infant Family History Father Prostate cancer Family/Other Cancer Heart disease Hypertension Nephrolithiasis Social History Smoking Status: Former smoker Second Hand Exposure: No; Hx Alcohol Use: No Hx Substance Use: No Preferred Language: Setswana Communication Ability: Effective Bait Packer Required: No Beliefs That Will Affect Care: None marital status: Current Living Situation: Spouse Current Living Situation Comment: and child. current occupational status: retired How many Children do You have: 1 Feels Safe at Home: Yes Assistive Devices: Mechanical Lift and Wheelchair Allergies Allergies Allergy/AdvReac Type Severity Reaction Status Date / Time glatiramer (copolymer 1) Allergy Severe Anaphylaxis Verified 07/18/21 23:19 [From Copaxone] Home Meds Home Medications Medication Instructions Recorded Confirmed acetaminophen 500 mg capsule 500 mg PO Q6H PRN 03/20/19 07/18/21 atorvastatin 40 mg tablet 40 mg PO HS 03/20/19 07/18/21 levothyroxine 88 mcg tablet 88 mcg PO QAM tab 03/20/19 07/18/21 oxybutynin chloride 10 mg 10 mg PO HS 05/30/21 07/18/21 tablet,extended release 24 hr tizanidine 4 mg tablet 2 mg PO Q4 PRN 05/30/21 07/18/21 clonazepam 0.5 mg tablet 0.25 mg PO UD PRN 06/07/21 07/18/21 metoprolol succinate 50 mg 75 mg PO HS 06/07/21 07/18/21 tablet,extended release 24 hr nitroglycerin 0.4 mg sublingual 0.4 mg SUBLINGUAL UD PRN 06/07/21 07/18/21 tablet omeprazole 40 mg capsule,delayed 40 mg PO QAM 06/07/21 07/18/21 release acyclovir 400 mg tablet 400 mg PO BID 07/17/21 07/18/21 bortezomib 3.5 mg injection powder 0 mg SUBCUT WK 07/17/21 07/18/21 for solution (Velcade) dexamethasone 4 mg tablet 40 mg PO WK 07/17/21 07/18/21 hydrocortisone 2.5 % topical 1 applic TOPICAL DAILY PRN 07/17/21 07/18/21 ointment Previous Rx's Medication Instructions Recorded Wheelchair (Powered) #2 ea 11/23/20 furosemide 40 mg tablet (Lasix) 40 mg PO DAILY #30 tab 07/18/21 morphine concentrate 100 mg/5 mL 5 - 10 mg PO Q3H PRN #20 ml 07/18/21 (20 mg/mL) oral solution Results & Data (ED) Vital Signs Vital Signs - 24 hr 07/18/21 22:17 07/18/21 23:03 07/18/21 23:35 Temperature 36.5 C Temperature Source Oral Pulse Rate 113 H Pulse Rate [Apical] 115 H 108 H Pulse Rhythm [Apical] Regular Respiratory Rate 15 19 16 Respiratory Effort / Characteristics Non-Labored Non-Labored Respiratory Depth Normal Shallow Respiratory Pattern Regular Irregular Blood Pressure 105/79 Blood Pressure Mean 87 Pulse Oximetry 92 92 93 Oxygen Delivery Method Nasal Cannula Nasal Cannula Nasal Cannula Oxygen Flow Rate 6 6 6 Sepsis Recent Fever Within 48 Hours No Sepsis New/Unexplained Change in Mental Status No Sepsis Action Taken by Nursing No Action Required 07/19/21 00:52 Temperature Temperature Source Pulse Rate Pulse Rate [Apical] 104 H Pulse Rhythm [Apical] Respiratory Rate 10 L Respiratory Effort / Characteristics Respiratory Depth Shallow Respiratory Pattern Irregular Blood Pressure Blood Pressure Mean Pulse Oximetry 94 Oxygen Delivery Method Nasal Cannula Oxygen Flow Rate 6 Sepsis Recent Fever Within 48 Hours Sepsis New/Unexplained Change in Mental Status Sepsis Action Taken by Retirement Medications Current Medication List: was personally reviewed by me Laboratory Data Attestation: I reviewed the patient's lab results. Administered Medications Miscellaneous (Fentanyl Patch Remove & Waste) 1 ea N/A Q3D KEHINDE Stop: 08/17/21 23:14 Last Admin: 07/18/21 23:32 Dose: 1 ea Documented by: [id number] Cosigned by: [id number] Discontinued Medications Fentanyl (Fentanyl 50 Mcg/Hr Tdsy) 50 mcg TD NOW STA Stop: 07/18/21 23:11 Last Admin: 07/18/21 23:28 Dose: 50 mcg Documented by: [id number] Fentanyl Citrate (Fentanyl Citrate 100 Mcg/2 Ml Vial) 50 mcg IV NOW STA Stop: 07/18/21 23:09 Last Admin: 07/18/21 23:12 Dose: 50 mcg Documented by: [id number] Blood Pressure Blood Pressure Findings: Normal blood pressure Blood Pressure Disposition: did not require urgent referral Discharge Plan Visit Data Chief Complaint: Abdominal Pain ED Provider: Marilin Suazo Discharge Problem: Need for comfort care, Uncontrolled pain, Multiple sclerosis, Multiple myeloma, Quadriplegia Forms Stand Alone Forms: [facility] [employer] Prescriptions Prescriptions: No Action (DME) Wheelchair (Powered) Device See Rx Instructions .ROUTE .MEDSUPPLY Qty: 2 RF: 0 acetaminophen 500 mg capsule 500 mg PO Q6H PRN (Reason: Pain) RF: 0 atorvastatin 40 mg tablet 40 mg PO HS RF: 0 levothyroxine 88 mcg tablet 88 mcg PO QAM RF: 0 metoprolol succinate 50 mg tablet extended release 24 hr 75 mg PO HS RF: 0 omeprazole 40 mg capsule,delayed release(DR/EC) 40 mg PO QAM RF: 0 nitroglycerin 0.4 mg tablet, sublingual 0.4 mg sublingual UD PRN (Reason: Chest Pain) RF: 0 clonazepam 0.5 mg tablet 0.25 mg PO UD PRN (Reason: spasms) RF: 0 acyclovir 400 mg tablet 400 mg PO BID RF: 0 dexamethasone 4 mg tablet 40 mg PO WK RF: 0 hydrocortisone 2.5 % ointment 1 applic TOPICAL DAILY PRN (Reason: Inflammation) RF: 0 Velcade 3.5 mg Recon Soln 0 mg subcut WK RF: 0 furosemide [Lasix] 40 mg tablet 40 mg PO DAILY Qty: 30 RF: 0 morphine concentrate 100 mg/5 mL (20 mg/mL) solution 5 - 10 mg PO Q3H PRN (Reason: for pain or air hunger) Qty: 20 RF: 0 oxybutynin chloride 10 mg tablet extended release 24hr 10 mg PO HS RF: 0 tizanidine 4 mg tablet 2 mg PO Q4 PRN (Reason: Muscle Spasm) RF: 0 Referrals Referrals: Shanthi Castano DO [Primary Care Provider] - Discharge Problem: Multiple myeloma Qualifiers: Multiple myeloma remission status: not in remission Qualified Code(s): C90.00 - Multiple myeloma not having achieved remission
[2021-07-19] MEDS ORDERED: LORazepam 2 MG/1 ML VIAL IV STA (01:45)
--- NOTE | 2021-07-19 01:49 | History & Physical Report ---
Date of Service July 19, 2021 Assessment & Plan (1) Metastatic disease: Plan: Known h/o light chain myeloma with metastatic disease, recently sent home on Hospice earlier today Being admitted for more effective pain control. Revceived IV Fentanyl and patch. Cont with PRN Dilaudid, then Ativan. (2) Multiple myeloma: Plan: Off chemotherapy at this time. Hospice care (3) Hypoxia: Plan: Likely 2/2 large bilateral pleural effusions. Per pulm last visit, continue with IV lasix given the invasive nature of thoracentesis. (4) Multiple sclerosis: Plan: Long standing chronic diagnosis. Cont tizanidine and oxybutinin per home regimen. (5) Quadriplegia: Plan: chronic, turn q2h. Patient currently declining che but ok with a [place] catheter at night. (6) Comfort measures only status: Plan: Reviewed all medications with her son. (7) DVT prophylaxis: Plan: SCDs-comfort measures DNR/ Dispo-to med floor, is at bedside. Tish Buchanan DO [facility] Hospitalist History of Present Illness Chief Complaint: uncontrolled pain at home Primary Care Provider: Shanthi Castano DO 61 yo M with terminal illness left the hospital with Hospice yesterday and returned with uncontrolled pain. Given Fentanyl IV and patch applied in ER with some relief. Pt's is at bedside and reports he was having pain despite increased doses of Roxanal. He is currently working to breathe and is a quadriplegic. He has abdominal discomfort and his abdomen is distended. There is known metastatic disease in this area as well as malignant ascites. He also has multiple myeloma and just completed cancer therapy and has a h/o MS. He uses oxybutynin to help him urinate and per they were using a condom c atheter at night. He uses tizanidine once or twice nightly fo muscle rigidity. Allergies Allergy/AdvReac Type Severity Reaction Status Date / Time glatiramer (copolymer 1) Allergy Severe Anaphylaxis Verified 07/18/21 23:19 [From Copaxone] Home Medications Medication Instructions Recorded Confirmed Type acetaminophen 500 mg capsule 500 mg PO Q6H PRN 03/20/19 07/18/21 History atorvastatin 40 mg tablet 40 mg PO HS 03/20/19 07/18/21 History levothyroxine 88 mcg tablet 88 mcg PO QAM tab 03/20/19 07/18/21 History oxybutynin chloride 10 mg 10 mg PO HS 05/30/21 07/18/21 History tablet,extended release 24 hr tizanidine 4 mg tablet 2 mg PO Q4 PRN 05/30/21 07/18/21 History clonazepam 0.5 mg tablet 0.25 mg PO UD PRN 06/07/21 07/18/21 History metoprolol succinate 50 mg 75 mg PO HS 06/07/21 07/18/21 History tablet,extended release 24 hr nitroglycerin 0.4 mg sublingual 0.4 mg SUBLINGUAL UD PRN 06/07/21 07/18/21 History tablet omeprazole 40 mg capsule,delayed 40 mg PO QAM 06/07/21 07/18/21 History release hydrocortisone 2.5 % topical 1 applic TOPICAL DAILY PRN 07/17/21 07/18/21 History ointment furosemide 40 mg tablet (Lasix) 40 mg PO DAILY #30 tab 07/18/21 07/18/21 Rx morphine concentrate 100 mg/5 mL 5 - 10 mg PO Q3H PRN #20 ml 07/18/21 07/18/21 Rx (20 mg/mL) oral solution Past Med/Surg History Medical History Acute hyponatremia ALPA (acute kidney injury) History of kidney stones Hypercalcemia Hypothyroidism Insomnia Multiple sclerosis wheelchair bound Muscle hypertonicity On anticoagulant therapy on brilinta Quadriplegia states can move very little, also states he can control his bladder/bowel Squamous cell carcinoma of face STEMI (ST elevation myocardial infarction) (~02/2016) follows with Dr. Ahuja Surgical History History of cardiac cath (~02/2016) with 1 stent placed History of carpal tunnel repair History of colonoscopy History of heart artery stent 1 stent History of Mohs surgery for squamous cell carcinoma of skin History of tonsillectomy History of wisdom tooth extraction S/P appendectomy S/P hernia repair as an Family History Father Prostate cancer Family/Other Cancer Heart disease Hypertension Nephrolithiasis Social History Smoking Status: Former smoker Second Hand Exposure: No; Do You Dip or Chew Tobacco: No; Hx Alcohol Use: No Hx Substance Use: No Preferred Language: Welsh Communication Ability: Effective Shooter'S Helper Required: No Beliefs That Will Affect Care: None marital status: Current Living Situation: Spouse Current Living Situation Comment: and child current occupational status: retired How many Children do You have: 1 Other Information That Helps Us Care for You: No Feels Safe at Home: Yes Safety Concerns: Feels Safe At This Time Assistive Devices: Mechanical Lift, Oxygen - Continuous and Wheelchair Review of Systems Review of Systems: All systems were reviewed and negative except as indicated in HPI. Physical Exam Physical Exam: CONSTITUTIONAL: WNWD, vitals as above, mild tachypnea, NAD, quadriplegic. EYES: normal conjunctivae, no scleral icterus ENT: external ear and nose normal, MMM NECK: trachea midline RESPIRATORY: clear to auscultation bilaterally, no crackles, rales or wheezes, normal respiratory effort CARDIOVASCULAR: regular rate and rhythm, S1 and 2 heard without murmurs, gallops or rubs, no JVD, no peripheral edema CHEST: inspection of chest was normal GASTROINTESTINAL: protuberant, distended, nontender, no guarding (pt is quadriplegic) MUSCULOSKELETAL: quadriplegic, cannot assess. SKIN: warm and dry NEUROLOGIC: oriented but fatigued, can easily awaken to ask questions. Results & Data Results & Data ([facility]) Vital Signs (Past 12 Hours) Vital Signs Temp Pulse Pulse Resp BP Pulse Ox 07/19/21 00:52 104 H 10 L 94 07/18/21 23:35 108 H 16 93 07/18/21 23:03 115 H 19 92 07/18/21 22:17 36.5 C 113 H 15 105/79 92 (1) Metastatic disease Area of secondary neoplastic involvement: other site Qualified Code(s): C79.89 - Secondary malignant neoplasm of other specified sites (2) Multiple myeloma Multiple myeloma remission status: not in remission Qualified Code(s): C90.00 - Multiple myeloma not having achieved remission
[2021-07-19] MEDS ORDERED: tiZANidine HCL 4 MG TABLET PO PRN (03:09)
[2021-07-19] MEDS ORDERED: LORazepam 2 MG/1 ML VIAL IV PRN (04:21)
[2021-07-19] MEDS ORDERED: MoRPHine SULFATE 5 MG/0.25 ML UDP PO PRN (04:21)
[2021-07-19] MEDS ORDERED: ONDANSETRON INJ 2 MG/ML 2 ML VIAL IV PRN (04:21)
[2021-07-19] MEDS ORDERED: tiZANidine HCL 4 MG TABLET PO SCH (04:21)
[2021-07-19] MEDS ORDERED: HYDROmorphone INJ 0.5 MG/0.5 ML SYR IV PRN (04:21)
[2021-07-19] MEDS ORDERED: ACETAMINOPHEN 325 MG TAB PO PRN (04:21)
[2021-07-19] MEDS ORDERED: GLYCOPYRROLATE 0.2 MG/ML VIAL IV PRN (04:21)
[2021-07-19] MEDS ORDERED: FUROSEMIDE 40 MG TAB PO SCH (09:00)
[2021-07-19] MEDS ORDERED: PANTOprazole 40 MG TAB PO SCH (09:00)
--- NOTE | 2021-07-19 09:04 | Discharge Summary ---
Date of Service July 19, 2021 Admission HPI Per Admitting Provider 61 yo M with terminal illness left the hospital with Hospice yesterday and returned with uncontrolled pain. Given Fentanyl IV and patch applied in ER with some relief. Pt's is at bedside and reports he was having pain despite increased doses of Roxanal. He is currently working to breathe and is a quadriplegic. He has abdominal discomfort and his abdomen is distended. There is known metastatic disease in this area as well as malignant ascites. He also has multiple myeloma and just completed cancer therapy and has a h/o MS. He uses oxybutynin to help him urinate and per they were using a condom hung ter at night. He uses tizanidine once or twice nightly fo muscle rigidity. Admission Exam Per Admitting Provider Chief Complaint: uncontrolled pain at home Primary Care Provider: Shanthi Castano, 61 yo M with terminal illness left the hospital with Hospice yesterday and returned with uncontrolled pain. Given Fentanyl IV and patch applied in ER with some relief. Pt's is at bedside and reports he was having pain despite increased doses of Roxanal. He is currently working to breathe and is a quadriplegic. He has abdominal discomfort and his abdomen is distended. There is known metastatic disease in this area as well as malignant ascites. He also has multiple myeloma and just completed cancer therapy and has a h/o MS. He uses oxybutynin to help him urinate and per they were using a condom catheter at night. He uses tizanidine once or twice nightly fo muscle rigidity. Principal Diagnosis Metastatic disease Multiple Myeloma Discharge Data Allergies Allergy/AdvReac Type Severity Reaction Status Date / Time glatiramer (copolymer 1) Allergy Severe Anaphylaxis Verified 07/18/21 23:19 [From Copaxone] Consultations 07/19/21 01:46 ED Decision to Admit Stat 07/19/21 04:21 Consult Palliative Care Routine Hospital Course (1) Metastatic disease: Known h/o light chain myeloma with metastatic disease, recently sent home on Hospice earlier today Being admitted for more effective pain control. Revceived IV Fentanyl and patch. Cont with PRN Dilaudid, then Ativan. (2) Multiple myeloma: Off chemotherapy at this time. Hospice care (3) Hypoxia: Likely 2/2 large bilateral pleural effusions. Per pulm last visit, continue with IV lasix given the invasive nature of thoracentesis. (4) Multiple sclerosis: Long standing chronic diagnosis. Cont tizanidine and oxybutinin per home regimen. (5) Quadriplegia: chronic, turn q2h. Patient currently declining che but ok with a [place] catheter at night. (6) Comfort measures only status: Reviewed all medications with her son. (7) DVT prophylaxis: SCDs-comfort measures DNR/ Dispo-to med floor, is at bedside. Patient at 8:30 AM on 07/19/21 while on Comfort measures. Family at bedside. Total Time Total Time Spent Total Time Spent (In Minutes): 31 minutes Discharge Plan Discharge Items Patient Disposition: Discharge Diagnosis: Metastatic disease Light chain Myeloma Other Date/Time: 07/19/21 08:30
[2021-07-19] MEDS ORDERED: METOPROLOL SUCC 25MG EXT REL TAB PO SCH (21:00)
[2021-07-19] MEDS ORDERED: OXYBUTYNIN CHLORIDE XL 5 MG TABCR PO SCH (21:00)
[2021-07-21] MEDS ORDERED: fentaNYL 50 MCG/HR TDSY TD SCH (21:00)
== END 2021-07-19 11:05 | disposition expired | DRG 947 ==
LOC: ED 21:57 → 3N 07-19 01:51